=== PATIENT | female | born 1950 | race Caucasian/White ===

== ENCOUNTER 2016-12-21 08:41 | Emergency (ER) | payer MEDICARE, MEDICAID ==
[~2016-12-21] VITALS: Ht 147.3 cm; Wt 46.0 kg
[2016-12-21 08:44] VITALS: BP 188/81; PULSE 112; RESP 14; TEMP 98.1; O2SAT 98
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
--- NOTE | 2016-12-21 09:49 | RADRPT ---
EXAM DATE/TIME: 12/21/2016 09:30 [facility] COMPARISON: No previous studies available for comparison. INDICATIONS : Patient fell out of bed RADIATION DOSE: 34.48 CTDIvol (mGy) ; Patient motion MEDICAL HISTORY : Hypertension. Diabetes mellitus type 1. SURGICAL HISTORY : None. ENCOUNTER: Initial ACUITY: 1 day PAIN SCALE: 3/10 LOCATION: Left cheek TECHNIQUE: Multiple contiguous axial images were obtained of the head. Using automated exposure control and adj ustment of the mA and/or kV according to patient size, radiation dose was kept as low as reasonably a chievable to obtain optimal diagnostic quality images. DICOM format image data is available electro nically for review and comparison. FINDINGS: CEREBRUM: The ventricles are normal for age. Punctate areas of diminished attenuation in the anterior aspect o f the left external capsule and the anterior horn of the right internal capsule may represent old lac unar type infarcts. No evidence of midline shift, mass lesion, hemorrhage or acute infarction. No ex tra-axial fluid collections are seen. POSTERIOR FOSSA: The cerebellum and brainstem are intact. The 4th ventricle is midline. The cerebellopontine angle i s unremarkable. EXTRACRANIAL: The visualized portion of the orbits is intact. Minimal mucoperiosteal thickening in the sphenoid sin uses. SKULL: The calvaria is intact. No evidence of skull fracture. CONCLUSION: 1. 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 2. Nothing acute. No fracture. 3. Mild chronic sinusitis of the sphenoid sinuses. Eliezer Doran MD on December 21, 2016 at 9:40 Board Certified Radiologist. This report was verified electronically.
[2016-12-21] MEDS ORDERED: ACETAMINOPHEN 325 MG TAB PO ONE (10:00)
[2016-12-21 10:03] LABS: AUTOMATED NEUTROPHIL # 3.7 TH/MM3 (1.8-7.7); BASOPHIL # 0.1 TH/MM3 (0-0.2); BASOPHIL % 0.9 % (0.0-2.0); EOSINOPHIL # 0.1 TH/MM3 (0-0.4); EOSINOPHIL % 1.5 % (0.0-4.0); HEMATOCRIT 38.8 % (35.0-46.0); HEMO FLAGS DIFF FINAL; LYMPH % 37.8 % (9.0-44.0); LYMPHOCYTE # 2.6 TH/MM3 (1.0-4.8); MEAN CELL VOLUME 89.7 FL (80.0-100.0); MEAN CORPUSCULAR HEMOGLOBIN 31.4 PG (27.0-34.0); MONO % 5.1 % (0.0-8.0); NEUT % 54.7 % (16.0-70.0); PLATELET COUNT 397 TH/MM3 (150-450); RED BLOOD COUNT 4.33 MIL/MM3 (4.00-5.30); RED CELL DISTRIBUTION WIDTH 12.6 % (11.6-17.2); WHITE BLOOD COUNT 6.8 TH/MM3 (4.0-11.0)
--- NOTE | 2016-12-21 10:15 | RADRPT ---
EXAM DATE/TIME: 12/21/2016 09:30 [facility] COMPARISON: No previous studies available for comparison. INDICATIONS : Patient fell out of bed RADIATION DOSE: 48.08 CTDIvol (mGy) MEDICAL HISTORY : Diabetes mellitus type 1. Hypertension. SURGICAL HISTORY : None. ENCOUNTER: Initial ACUITY: 1 day PAIN SCORE: 3/10 LOCATION: Left cheek TECHNIQUE: Volumetric scanning of the facial bones was performed. Using automated exposure control and adjustme nt of the mA and/or kV according to patient size, radiation dose was kept as low as reasonably achiev able to obtain optimal diagnostic quality images. DICOM format image data is available electronic[employer] y for review and comparison. FINDINGS: ORBITS: The orbital and infraorbital osseous structures are intact. The retroconal structures have a normal configuration. No radiopaque foreign bodies are seen. NASAL BONE: The nasal bone and maxillary spine are intact ZYGOMATIC ARCHES: Symmetric without evidence of fracture. SINUSES: The maxillary, ethmoid and frontal sinuses are intact. No air-fluid levels seen. NASAL CAVITY: The nasal septum is intact and midline. The lacrimal ducts are intact. SOFT TISSUES: No radiopaque foreign bodies seen. No soft-tissue swelling is seen. INTRACRANIAL: No intracranial air seen. CRIBIFORM PLATE: Grossly intact. CONCLUSION: Negative for facial bone fracture. Willie Pedraza MD FACR on December 21, 2016 at 10:12 Board Certified Radiologist. This report was verified electronically.
[2016-12-21 11:23] LABS: BICARBONATE 28.1 MEQ/L (21.0-32.0); POTASSIUM 4.1 MEQ/L (3.5-5.1)
== END 2016-12-21 13:00 | disposition left against medical advice (07) ==
LOC: NEPE 08:41
DX: S00.83XA Contusion of other part of head, initial encounter (principal); I10 Essential (primary) hypertension; W06.XXXA Fall from bed, initial encounter; Y92.003 Bedroom of unspecified non-institutional (private) residence as the place of occurrence of the external cause
CPT/HCPCS: 70450; 70486; 80048; 85025

== ENCOUNTER 2017-01-04 17:50 | Inpatient (IN) | payer MEDICARE, MEDICAID ==
[~2017-01-04] VITALS: Ht 147.3 cm; Wt 46.6 kg
[2017-01-04 06:00] VITALS: BP 154/76; PULSE 66; RESP 17; TEMP 97.3; O2SAT 99
[2017-01-04 18:24] VITALS: BP 196/86; PULSE 84; RESP 16; TEMP 98.4; O2SAT 100
[2017-01-04 19:20] LABS: AUTOMATED NEUTROPHIL # 2.9 TH/MM3 (1.8-7.7); BASOPHIL # 0.1 TH/MM3 (0-0.2); BASOPHIL % 0.8 % (0.0-2.0); EOSINOPHIL # 0.1 TH/MM3 (0-0.4); EOSINOPHIL % 1.7 % (0.0-4.0); HEMATOCRIT 39.8 % (35.0-46.0); HEMO FLAGS DIFF FINAL; LYMPH % 46.3 % (9.0-44.0); MEAN CELL VOLUME 93.1 FL (80.0-100.0); MEAN CORPUSCULAR HEMOGLOBIN 31.3 PG (27.0-34.0); MEAN CORPUSCULAR HGB CONC 33.7 % (32.0-36.0); MONO % 6.2 % (0.0-8.0); PLATELET COUNT 229 TH/MM3 (150-450); RED BLOOD COUNT 4.28 MIL/MM3 (4.00-5.30); RED CELL DISTRIBUTION WIDTH 12.7 % (11.6-17.2); WHITE BLOOD COUNT 6.5 TH/MM3 (4.0-11.0)
[2017-01-04 19:47] LABS: ALT (GPT) 13 U/L (10-53); ANION GAP 6 MEQ/L (5-15); AST (GOT) 18 U/L (15-37); BICARBONATE 25.7 MEQ/L (21.0-32.0); BLOOD UREA NITROGEN 11 MG/DL (7-18); CHLORIDE 106 MEQ/L (98-107); GLOMERULAR FILTRATION RATE 68 ML/MIN (>89); POTASSIUM 3.8 MEQ/L (3.5-5.1); SODIUM (NA) 138 MEQ/L (136-145)
[2017-01-04 19:50] LABS: ALKALINE PHOSPHATASE 86 U/L (45-117); TOTAL BILIRUBIN ADULT 0.3 MG/DL (0.2-1.0)
[2017-01-04 21:53] VITALS: BP 120/56; PULSE 70; RESP 17
[2017-01-05 00:30] VITALS: BP 161/79; PULSE 75; RESP 18; TEMP 97.4; O2SAT 97
[2017-01-05] MEDS ORDERED: hydrOXYzine HCL 50 MG TAB PO PRN (00:30)
[2017-01-05] MEDS ORDERED: diphenhydrAMINE HCL 50 MG CAP - HS PRN PO (00:30)
[2017-01-05] MEDS ORDERED: LORazepam 2 MG/ML VIAL - age > 65 yrs IM PRN (00:30)
[2017-01-05] MEDS ORDERED: traZODone HCL 50 MG TAB PO PRN (00:30)
[2017-01-05] MEDS ORDERED: ALUMINUM/MAGNESIUM/SIMETH 30 ML CUP PO PRN (00:30)
[2017-01-05] MEDS ORDERED: MAGNESIUM HYDROXIDE SUSP 30 ML CUP PO PRN (00:30)
[2017-01-05] MEDS ORDERED: diphenhydrAMINE HCL 50 MG/ML VIAL - HS PRN IM (00:30)
[2017-01-05] MEDS ORDERED: diphenhydrAMINE HCL 50 MG/ML VIAL IM PRN (00:30)
[2017-01-05] MEDS ORDERED: LORazepam 0.5 MG TAB age > 65 yrs PO PRN (00:30)
[2017-01-05] MEDS ORDERED: clonazePAM 1 MG TAB PO ONE (01:00)
[2017-01-05] MEDS ORDERED: diphenhydrAMINE HCL 50 MG CAP PO PRN (01:00)
[2017-01-05 06:06] VITALS: BP 154/76; PULSE 66; RESP 17; TEMP 97.3; O2SAT 99
[2017-01-05] MEDS: clonazePAM 1 MG TAB PO SCH ×2 (09:00→21:15)
[2017-01-05] MEDS: NICOTINE 21 MG/24 HR PATCH T-DERMAL SCH (09:00)
[2017-01-05] MEDS: OLANZapine 5 MG TAB PO SCH ×2 (11:45→21:15)
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
[2017-01-05 16:00] VITALS: BP 158/71; PULSE 75; RESP 18; TEMP 98.6; O2SAT 98
--- NOTE | 2017-01-05 17:15 | PD.CONS ---
HPI Service [facility] Hospitalists Consult Requested By Psychiatry Reason for Consult Medical management. Primary Care Physician Unknown Diagnoses: History of Present Illness Ms. Mckenzie is a 66 year old female with a history of hypertension, diabetes mellitus who was admitted to psychiatry unit due to aggressive behavior. Hospitalist service was consulted for medical management. At the time of this interview, patient is resting in bed well. Denies any chest pain, SOB, fever, chills. She takes metformin for DM and a blood pressure medication she could not name. No changes in bowel or bladder movements. No abdominal pain, cough. Review of Systems Except as stated in HPI: all other systems reviewed are Neg Past Family Social History Allergies: Coded Allergies: penicillin G (Unverified Allergy, Unknown, 01/04/17) Past Medical History Hypertension Diabetes mellitus Bipolar disorder Past Surgical History No previous major surgery Reported Medications Metformin BP med - probably amlodipine Family History No family history of heart disease, cancer Social History Smokes vap, uses opiates but no IV Drugs. Does not drink alcohol. Physical Exam Vital Signs Vital Signs Date Time Temp Pulse Resp B/P (MAP) Pulse Ox O2 Delivery O2 Flow Rate FiO2 01/05/17 06:06 97.3 66 17 154/76 (102) 99 01/05/17 00:30 97.4 75 18 161/79 (106) 97 01/05/17 00:23 01/04/17 21:53 70 17 120/56 (77) Room Air 01/04/17 18:24 98.4 84 16 196/86 (122) 100 Physical Exam GENERAL: This is a well-nourished, well-developed patient, in no apparent distress. SKIN: No rashes, ecchymoses or lesions. Warm and dry. HEAD: Atraumatic. Normocephalic. No temporal or scalp tenderness. EYES: Pupils equal round and reactive. No injection or drainage. ENT: Nose without bleeding, purulent drainage or septal hematoma. Airway patent. NECK: Trachea midline. No lymphadenopathy. Supple, nontender, no meningeal signs. CARDIOVASCULAR: Regular rate and rhythm without murmurs, gallops, or rubs. No JVD. RESPIRATORY: moderate air entry. No appreciable wheezing. GASTROINTESTINAL: Abdomen soft, non-tender, nondistended. No guarding. MUSCULOSKELETAL: Extremities without clubbing, cyanosis, or edema. NEUROLOGICAL: Awake and alert. Cranial nerves II through XII intact. No focal neurological deficits. Normal speech. Laboratory Laboratory Tests Test 01/04/17 18:46 01/04/17 20:45 White Blood Count 6.5 Red Blood Count 4.28 Hemoglobin 13.4 Hematocrit 39.8 Mean Corpuscular Volume 93.1 Mean Corpuscular Hemoglobin 31.3 Mean Corpuscular Hemoglobin Concent 33.7 Red Cell Distribution Width 12.7 Platelet Count 229 Mean Platelet Volume 7.4 Neutrophils (%) (Auto) 45.0 Lymphocytes (%) (Auto) 46.3 Monocytes (%) (Auto) 6.2 Eosinophils (%) (Auto) 1.7 Basophils (%) (Auto) 0.8 Neutrophils # (Auto) 2.9 Lymphocytes # (Auto) 3.0 Monocytes # (Auto) 0.4 Eosinophils # (Auto) 0.1 Basophils # (Auto) 0.1 CBC Comment DIFF FINAL Differential Comment Blood Urea Nitrogen 11 Creatinine 0.84 Random Glucose 111 Total Protein 7.9 Albumin 3.8 Calcium Level 8.8 Alkaline Phosphatase 86 Aspartate Amino Transf (AST/SGOT) 18 Alanine Aminotransferase (ALT/SGPT) 13 Total Bilirubin 0.3 Sodium Level 138 Potassium Level 3.8 Chloride Level 106 Carbon Dioxide Level 25.7 Anion Gap 6 Estimat Glomerular Filtration Rate 68 Urine Opiates Screen NEG Urine Barbiturates Screen NEG Urine Amphetamines Screen POS Urine Benzodiazepines Screen POS Urine Cocaine Screen NEG Urine Cannabinoids Screen NEG Result Diagram: 01/04/17184501/04/171845 Assessment and Plan Problem List: (1) Diabetes mellitus ICD Code: E11.9 - Type 2 diabetes mellitus without complications (2) Hypertension ICD Code: I10 - Essential (primary) hypertension (3) Bipolar disorder, current episode manic severe with psychotic features ICD Code: F31.2 - Bipolar disorder, current episode manic severe with psychotic features Assessment and Plan Ms. Mckenzie is a pleasant 66 year old female with a history of DM, HTN who was admitted to the psychiatry unit due to aggressive behavior. Hospitalist service was consulted for medical management. Patient denies any acute concerns at the time of this consultation. - Bipolar disorder - Management per Psychiatry team. - Patient is currently on Clonazepam, Olanzapine. Also on Trazodone for insomnia. - Hypertension - Patient's BP has been in the 150s to 160s range - Will start patient on Amlodipine 5mg Qday. - Diabetes mellitus - Patient takes Metformin. We will start patient on Metformin 500mg BID. - Can be titrated up in the outpatient setting. Full code. Ambulation. Thank you for the consult. We will continue to follow this patient with you. Laura Dobbs DO Jan 05, 2017 17:15
[2017-01-05] MEDS: REMOVE OLD NICOTINE PATCH T-DERMAL SCH (21:00)
[2017-01-06 05:33] VITALS: BP 122/60; PULSE 69; RESP 17; TEMP 97.5; O2SAT 100
[2017-01-06] MEDS: metFORMIN HCL 500 MG TAB PO SCH ×3 (08:35→09:22)
[2017-01-06] MEDS: OLANZapine 5 MG TAB PO SCH ×4 (08:35→12:51)
[2017-01-06] MEDS: amLODIPine BESYLATE 5 MG TAB PO SCH ×4 (08:36→12:49)
[2017-01-06] MEDS: clonazePAM 1 MG TAB PO SCH ×4 (08:36→12:49)
[2017-01-06] MEDS: NICOTINE 21 MG/24 HR PATCH T-DERMAL SCH ×2 (08:37→09:23)
[2017-01-06] MEDS: REMOVE OLD NICOTINE PATCH T-DERMAL SCH (09:22)
--- NOTE | 2017-01-06 10:04 | PD.TTN ---
Patient Problems 1. Discharge planning 2. Medication compliance 3. Knowledge deficit 4. Lack of coping skills Progress Toward Goals Provider Present: Dr. Oren Elizondo Provider Input: Dr. Prado's treatment team met to discuss patient's treatment plan, discharge and medication. Patient is new presenting confused and disorganized, has history of noncompliance. Will begin treatment Nurse(s) Input: Patient's nurse Vashti reports presents paranoid, suspicious , refused her medication "stating not until she speaks to the doctor" Psychiatric Counselors Present: YVETTE Rush Psych Therapist Input: Patient seen today in her room. Patient continues to deny medication stating it is not real. Patient presents paranoid, confused, agitated, affect blunted. Patient made good eye contact. Patient is alert to person and place but has poor insight into her situation. Patient denies suicidal and homicidal ideation. Group Spec/RT/OT/GOMEZ Present: PATRICIA Grissom Group Spec/RT/OT/GOMEZ Input: Patient does not attend groups, will encourage Reyna Mane Jan 06, 2017 10:04
[2017-01-06 10:23] LABS: AUTOMATED NEUTROPHIL # 2.3 TH/MM3 (1.8-7.7); BASOPHIL % 0.4 % (0.0-2.0); EOSINOPHIL # 0.1 TH/MM3 (0-0.4); HEMO FLAGS DIFF FINAL; LYMPH % 50.1 % (9.0-44.0); LYMPHOCYTE # 2.7 TH/MM3 (1.0-4.8); MEAN CELL VOLUME 91.2 FL (80.0-100.0); MONO % 5.5 % (0.0-8.0); PLATELET COUNT 244 TH/MM3 (150-450); RED BLOOD COUNT 4.49 MIL/MM3 (4.00-5.30); RED CELL DISTRIBUTION WIDTH 12.6 % (11.6-17.2); WHITE BLOOD COUNT 5.4 TH/MM3 (4.0-11.0)
[2017-01-06 10:33] LABS: ANION GAP 6 MEQ/L (5-15); AST (GOT) 18 U/L (15-37); BLOOD UREA NITROGEN 8 MG/DL (7-18); CHLORIDE 106 MEQ/L (98-107); GLOMERULAR FILTRATION RATE 71 ML/MIN (>89); MAGNESIUM 1.7 MG/DL (1.5-2.5); POTASSIUM 3.8 MEQ/L (3.5-5.1); SODIUM (NA) 141 MEQ/L (136-145)
[2017-01-06 10:43] LABS: ALKALINE PHOSPHATASE 84 U/L (45-117); ALT (GPT) 11 U/L (10-53); HDL CHOLESTEROL 55.8 MG/DL (40.0-60.0); LDL CHOLESTEROL 77 MG/DL (0-99); TOTAL BILIRUBIN ADULT 0.3 MG/DL (0.2-1.0)
--- NOTE | 2017-01-06 13:12 | HHI.PYPN ---
Subjective Remarks Patient seen follow up, chart reviewed. have reported the patient had been refusing medications this morning stating "they're not real". Patient is found in day room, cooperative interview. Patient states she has been feeling "fine" no problem with sleep, eating and drinking okay has some difficulty admission yesterday but stated that she was able to void normal today. She denies feeling depressed denies feeling irritable despite noting be irritable affect today. Patient denies any side effects medications. When asked about medications this morning patient states that she did take it as why she thought they were not real. Listening to the patient that lately, with generic names which she may not recognize she reluctantly acknowledged. Patient likely also agreed to take medications that she will refuse earlier this morning. Patient reports having not spoken with her since her admission. Review of Systems Except as stated in HPI: all other systems reviewed are Neg Mental Status Examination Appearance: Disheveled Consciousness: Alert, Vigilant Orientation: Person, Place, Date/Time Motor Activity: Normal gait Speech: Other Language: Adequate Fund of Knowledge: Adequate Attention and Concentration: Adequate Memory: Unremarkable Mood: Irritable Affect: Irritable Thought Process & Associations: Other (concrete) Thought Content: Preoccupations (wanting to be discharged), Delusional ( Paranoid) Hallucination Type: Auditory (denies but as per collateral patient talking to self) Delusion Type: Paranoid Suicidal Ideation: Yes (denies today) Suicidal Plan: No Suicidal Intention: No Homicidal Ideation: Yes (denies today) Homicidal Plan: No Homicidal Intention: No Insight: Poor Judgment: Poor Results Labs Labs reviewed. Test 01/06/17 09:19 White Blood Count 5.4 TH/MM3 Red Blood Count 4.49 MIL/MM3 Hemoglobin 13.9 GM/DL Hematocrit 41.0 % Mean Corpuscular Volume 91.2 FL Mean Corpuscular Hemoglobin 31.0 PG Mean Corpuscular Hemoglobin Concent 34.0 % Red Cell Distribution Width 12.6 % Platelet Count 244 TH/MM3 Mean Platelet Volume 7.3 FL Neutrophils (%) (Auto) 42.0 % Lymphocytes (%) (Auto) 50.1 % Monocytes (%) (Auto) 5.5 % Eosinophils (%) (Auto) 2.0 % Basophils (%) (Auto) 0.4 % Neutrophils # (Auto) 2.3 TH/MM3 Lymphocytes # (Auto) 2.7 TH/MM3 Monocytes # (Auto) 0.3 TH/MM3 Eosinophils # (Auto) 0.1 TH/MM3 Basophils # (Auto) 0.0 TH/MM3 CBC Comment DIFF FINAL Differential Comment Blood Urea Nitrogen 8 MG/DL Creatinine 0.81 MG/DL Random Glucose 87 MG/DL Total Protein 7.6 GM/DL Albumin 3.7 GM/DL Calcium Level 9.0 MG/DL Magnesium Level 1.7 MG/DL Alkaline Phosphatase 84 U/L Aspartate Amino Transf (AST/SGOT) 18 U/L Alanine Aminotransferase (ALT/SGPT) 11 U/L Total Bilirubin 0.3 MG/DL Sodium Level 141 MEQ/L Potassium Level 3.8 MEQ/L Chloride Level 106 MEQ/L Carbon Dioxide Level 29.0 MEQ/L Anion Gap 6 MEQ/L Estimat Glomerular Filtration Rate 71 ML/MIN Triglycerides Level 203 MG/DL Cholesterol Level 173 MG/DL LDL Cholesterol 77 MG/DL HDL Cholesterol 55.8 MG/DL Cholesterol/HDL Ratio 3.10 RATIO Thyroid Stimulating Hormone 3rd Gen 1.310 uIU/ML Vitals/IOs Vital Signs Date Time Temp Pulse Resp B/P (MAP) Pulse Ox O2 Delivery O2 Flow Rate FiO2 01/06/17 05:33 97.5 69 17 122/60 (80) 100 01/04/17 21:53 Room Air Intake and Output 01/06/17 01/06/17 01/07/17 08:00 16:00 00:00 Intake Total 120 ml Balance 120 ml Assessment & Plan Problem List: (1) Bipolar disorder, current episode manic severe with psychotic features ICD Codes: F31.2 - Bipolar disorder, current episode manic severe with psychotic features Assessment & Plan Patient at this time continues to be noted to be very irritable, paranoid with her medications, superficially cooperative interview today. Patient noted to be paranoid with staff as well as with database report writer. We'll increase olanzapine to 5 mg by mouth a.m. and 10 mg by mouth at bedtime was stabilization and psychosis. Continue to monitor mood and behavior. Discharge planning in progress Justification for Cont. Inpt. At risk for further decompensation if at lower level of care Discharge Planning Patient to be discharged back to her residence once psychiatrically cleared Erasto Elizondo MD Jan 06, 2017 13:12
--- NOTE | 2017-01-06 14:05 | HHI.PR ---
Subjective Remarks Patient reports she is feeling okay. States she is trying to rest. Objective Vitals Vital Signs Date Time Temp Pulse Resp B/P (MAP) Pulse Ox O2 Delivery O2 Flow Rate FiO2 01/06/17 05:33 97.5 69 17 122/60 (80) 100 01/05/17 16:00 98.6 75 18 158/71 (100) 98 I/O 01/05/17 01/05/17 01/05/17 01/06/17 01/06/17 01/06/17 07:00 15:00 23:00 07:00 15:00 23:00 Intake Total 120 ml Balance 120 ml Intake Oral 120 ml Result Diagram: 01/06/1791801/06/17918 Objective Remarks GENERAL: This is a well-nourished, well-developed patient, in no apparent distress. CARDIOVASCULAR: Normal rate and regular rhythm without murmurs, gallops, or rubs. RESPIRATORY: Good respiratory efforts. Breath sounds equal and clear to auscultation bilaterally. GASTROINTESTINAL: Abdomen soft, non-tender, non-distended. Normal active bowel sounds MUSCULOSKELETAL: Extremities without cyanosis, or edema. NEURO: Alert & Oriented x4 to person, place, time, situation. Moves all ext x4 PSYCH: Appropriate mood and affect. A/P Problem List: (1) Diabetes mellitus ICD Code: E11.9 - Type 2 diabetes mellitus without complications (2) Hypertension ICD Code: I10 - Essential (primary) hypertension (3) Bipolar disorder, current episode manic severe with psychotic features ICD Code: F31.2 - Bipolar disorder, current episode manic severe with psychotic features Assessment and Plan 66 year old female with a history of DM, HTN who was admitted to the psychiatry unit due to aggressive behavior. Hospitalist service was consulted for medical management. - Bipolar disorder - Management per Psychiatry team. - Patient is currently on Clonazepam, Olanzapine. Also on Trazodone for insomnia. - Hypertension - Patient's BP has been in the 150s to 160s range -Patient was started on amlodipine 5 mg daily. She can be discharged on the same. Blood pressure now controlled. - Diabetes mellitus - Patient takes Metformin. Restart Metformin 500mg BID. - Can be titrated up in the outpatient setting. Patient is medically stable. We'll sign off. Please call or consult. Questions. Salma Pereira MD Jan 06, 2017 14:05
[2017-01-06 17:13] LABS: HEMOGLOBIN A1a 0.9 %; HEMOGLOBIN A1b 1.9 %; HEMOGLOBIN Ao 84.9 %; HEMOGLOBIN LA1C 2.2 %
[2017-01-06 18:00] VITALS: BP 147/68; PULSE 63; RESP 17; TEMP 97.5; O2SAT 96
[2017-01-06] MEDS: OLANZapine 10 MG TAB PO SCH (20:38)
[2017-01-07 06:11] VITALS: BP 151/72; PULSE 88; RESP 18; TEMP 97.9; O2SAT 96
[2017-01-07] MEDS: OLANZapine 5 MG TAB PO SCH (09:00)
[2017-01-07] MEDS: clonazePAM 1 MG TAB PO SCH ×2 (09:18→20:23)
[2017-01-07] MEDS: amLODIPine BESYLATE 5 MG TAB PO SCH (09:19)
[2017-01-07] MEDS: NICOTINE 21 MG/24 HR PATCH T-DERMAL SCH (09:20)
[2017-01-07] MEDS: metFORMIN HCL 500 MG TAB PO SCH ×2 (09:23→18:00)
--- NOTE | 2017-01-07 14:23 | HHI.PYPN ---
Subjective Remarks Patient seen for follow-up, chart reviewed. Discussed with nursing staff reported patient continues to be noted to be irritable. Patient found lying in hospital bed was able to engage in interview today. Patient states that she is feeling "fine", patient reports that temper in general has been good, tolerating medications okay denies any adverse drug reactions. Patient states that she is no longer having difficulty with urination. Patient states that she has been involved in groups and activities on the unit. Patient reports not having with her since admission and states that upon discharge plans are going back home. Patient at this time denies SI, HI, AVH. Review of Systems Except as stated in HPI: all other systems reviewed are Neg Mental Status Examination Appearance: Disheveled Consciousness: Alert, Vigilant Orientation: Person, Place, Date/Time Motor Activity: Normal gait Speech: Other Language: Adequate Fund of Knowledge: Adequate Attention and Concentration: Adequate Memory: Unremarkable Mood: Irritable (less so today) Affect: Irritable Thought Process & Associations: Other (concrete) Thought Content: Delusional (Paranoid) Hallucination Type: Auditory (denies today) Delusion Type: Paranoid Suicidal Ideation: Yes (denies today) Suicidal Plan: No Suicidal Intention: No Homicidal Ideation: Yes (denies today) Homicidal Plan: No Homicidal Intention: No Insight: Poor Judgment: Poor Results Vitals/IOs Vital Signs Date Time Temp Pulse Resp B/P (MAP) Pulse Ox O2 Delivery O2 Flow Rate FiO2 01/07/17 06:11 97.9 88 18 151/72 (98) 96 01/04/17 21:53 Room Air Assessment & Plan Problem List: (1) Bipolar disorder, current episode manic severe with psychotic features ICD Codes: F31.2 - Bipolar disorder, current episode manic severe with psychotic features Assessment & Plan Patient at this time continues to be noted to be irritable, did not illicit any expressed paranoid delusions but was endorsing yesterday that the medications were fake. Patient continues to be noted to be very guarded and hypervigilant with chief writer. Patient has been compliant with treatment today. Patient appears to be responding to treatment and will continue treatment as is for now. Continue to encourage personal hygiene as well as participation in groups and activities while on the unit. Continue recommendations as per primary medical team. Discharge planning in progress Justification for Cont. Inpt. At risk for further decompensation if at lower level of care Discharge Planning Patient to return back to her residence was psychiatrically stable Erasto Elizondo MD Jan 07, 2017 14:23
--- NOTE | 2017-01-07 15:46 | EKG ---
Date Performed: 01/06/2017 Time Performed: 12:59:58 PTAGE: 66 years EKG: Sinus rhythm NORMAL ECG NO PREVIOUS TRACING DOCTOR: Carlos Alberto Crystal Interpretating Date/Time 01/07/2017 15:44:51
[2017-01-07 17:13] VITALS: BP 119/56; PULSE 78; RESP 16; TEMP 97.9; O2SAT 98
[2017-01-07] MEDS: OLANZapine 10 MG TAB PO SCH (20:23)
[2017-01-07] MEDS: REMOVE OLD NICOTINE PATCH T-DERMAL SCH (21:00)
[2017-01-07] MEDS: ACETAMINOPHEN 325 MG TAB PO PRN (21:22)
[2017-01-08 05:56] VITALS: BP 114/59; PULSE 71; RESP 16; TEMP 97.6; O2SAT 98
[2017-01-08] MEDS: NICOTINE 21 MG/24 HR PATCH T-DERMAL SCH (09:00)
[2017-01-08] MEDS: OLANZapine 5 MG TAB PO SCH (09:11)
[2017-01-08] MEDS: metFORMIN HCL 500 MG TAB PO SCH ×2 (09:12→18:22)
[2017-01-08] MEDS: amLODIPine BESYLATE 5 MG TAB PO SCH (09:12)
[2017-01-08] MEDS: clonazePAM 1 MG TAB PO SCH ×2 (09:12→21:11)
--- NOTE | 2017-01-08 14:59 | HHI.PYPN ---
Subjective Remarks Patient seen for follow-up, chart reviewed. Patient found sitting in hospital bed, cooperative but noted to be guarded. Patient states that she is feeling "fine" reports tolerating medications denies any perceptual disturbances or delusions at this time. Patient continues noted to be very guarded and hypervigilant with interviewer. Patient reports having spoken with earlier today and states that it did not go so well as he has spoken about recent events that brought to the hospital. Patient reports tolerating treatment well denies any adverse drug reactions at this time. Patient still noted to have some irritability and internally preoccupied at times Review of Systems Except as stated in HPI: all other systems reviewed are Neg Mental Status Examination Appearance: Disheveled Consciousness: Alert, Vigilant Orientation: Person, Place, Date/Time Motor Activity: Normal gait Speech: Other Language: Adequate Fund of Knowledge: Adequate Attention and Concentration: Adequate Memory: Unremarkable Mood: Irritable (less so today) Affect: Irritable Thought Process & Associations: Other (concrete) Thought Content: Delusional (Paranoid) Hallucination Type: Auditory (denies today) Delusion Type: Paranoid Suicidal Ideation: Yes (denies today) Suicidal Plan: No Suicidal Intention: No Homicidal Ideation: Yes (denies today) Homicidal Plan: No Homicidal Intention: No Insight: Poor Judgment: Poor Results Vitals/IOs Vital Signs Date Time Temp Pulse Resp B/P (MAP) Pulse Ox O2 Delivery O2 Flow Rate FiO2 01/08/17 05:56 97.6 71 16 114/59 (77) 98 01/04/17 21:53 Room Air Assessment & Plan Problem List: (1) Bipolar disorder, current episode manic severe with psychotic features ICD Codes: F31.2 - Bipolar disorder, current episode manic severe with psychotic features Assessment & Plan Patient at this time continues to be noted to be very paranoid, hypervigilant and with some irritability still. Patient reports tolerating medication well. We'll increase olanzapine 7.5 mg by mouth daily and 10 mg by mouth at bedtime for mood stabilization. Continue with the medications and recommendations as per primary medical team. Collateral pending from to determine if patient is closer to baseline. Discharge planning in progress Justification for Cont. Inpt. At risk for further decompensation if at lower level of care Discharge Planning Patient to return back home to once psychiatrically stable. Erasto Elizondo MD Jan 08, 2017 14:59
[2017-01-08 17:18] VITALS: BP 114/57; PULSE 78; RESP 17; TEMP 97.3; O2SAT 92
[2017-01-08] MEDS: REMOVE OLD NICOTINE PATCH T-DERMAL SCH (21:00)
[2017-01-08] MEDS: OLANZapine 10 MG TAB PO SCH (21:11)
[2017-01-09 06:13] VITALS: BP 105/52; PULSE 70; RESP 16; TEMP 97.1; O2SAT 98
[2017-01-09] MEDS: OLANZapine 5 MG TAB PO SCH (08:51)
[2017-01-09] MEDS: clonazePAM 1 MG TAB PO SCH ×2 (08:51→20:33)
[2017-01-09] MEDS: metFORMIN HCL 500 MG TAB PO SCH ×2 (08:51→17:40)
[2017-01-09] MEDS: NICOTINE 21 MG/24 HR PATCH T-DERMAL SCH (08:54)
[2017-01-09] MEDS: amLODIPine BESYLATE 5 MG TAB PO SCH (08:56)
[2017-01-09] MEDS: ACETAMINOPHEN 325 MG TAB PO PRN (10:27)
--- NOTE | 2017-01-09 15:53 | HHI.PYPN ---
Subjective Remarks Pt seen and discussed with staff. She has been hostile and irritable today. She has been observed responding to internal stimuli and remains paranoid and guarded. She is compliant with medications. Mental Status Examination Appearance: Disheveled Consciousness: Alert, Vigilant Orientation: Person, Place, Date/Time Motor Activity: Normal gait Speech: Other Language: Adequate Fund of Knowledge: Adequate Attention and Concentration: Adequate Memory: Unremarkable Mood: Irritable (less so today) Affect: Irritable Thought Process & Associations: Other (concrete) Thought Content: Delusional Hallucination Type: Auditory (denies) Delusion Type: Paranoid Suicidal Ideation: No Suicidal Plan: No Suicidal Intention: No Homicidal Ideation: No (denies today) Homicidal Plan: No Homicidal Intention: No Insight: Poor Judgment: Poor Results Vitals/IOs Vital Signs Date Time Temp Pulse Resp B/P (MAP) Pulse Ox O2 Delivery O2 Flow Rate FiO2 01/09/17 06:13 97.1 70 16 105/52 (69) 98 Assessment & Plan Problem List: (1) Bipolar disorder, current episode manic severe with psychotic features ICD Codes: F31.2 - Bipolar disorder, current episode manic severe with psychotic features Assessment & Plan continue current tx plan Estimated LOS: days Justification for Cont. Inpt. impairments in reality testing Lynn Frey MD Jan 09, 2017 15:53
[2017-01-09 18:00] VITALS: PULSE 61; RESP 16; TEMP 98.2; O2SAT 97
[2017-01-09] MEDS: OLANZapine 10 MG TAB PO SCH (20:33)
[2017-01-09] MEDS: REMOVE OLD NICOTINE PATCH T-DERMAL SCH (20:34)
[2017-01-10 08:06] VITALS: BP 180/77; PULSE 82; RESP 19; TEMP 98; O2SAT 97
[2017-01-10] MEDS: clonazePAM 1 MG TAB PO SCH ×2 (09:02→20:57)
[2017-01-10] MEDS: amLODIPine BESYLATE 5 MG TAB PO SCH (09:02)
[2017-01-10] MEDS: metFORMIN HCL 500 MG TAB PO SCH ×2 (09:02→18:16)
[2017-01-10] MEDS: OLANZapine 5 MG TAB PO SCH (09:02)
[2017-01-10] MEDS: NICOTINE 21 MG/24 HR PATCH T-DERMAL SCH (09:03)
--- NOTE | 2017-01-10 14:38 | HHI.PYPN ---
Subjective Remarks Pt seen and discussed with staff. She became agitated last night and was taken to 2700 unit for safety. She is back on the unit and has been calm this morning. She remains paranoid but is improving. No SI/H Mental Status Examination Appearance: Disheveled Consciousness: Alert, Vigilant Orientation: Person, Place, Date/Time Motor Activity: Normal gait Speech: Other Language: Adequate Fund of Knowledge: Adequate Attention and Concentration: Adequate Memory: Unremarkable Mood: Irritable Affect: Blunt Thought Process & Associations: Other (concrete) Thought Content: Delusional Hallucination Type: Auditory (denies) Delusion Type: Paranoid (decreased) Suicidal Ideation: No Suicidal Plan: No Suicidal Intention: No Homicidal Ideation: No (denies today) Homicidal Plan: No Homicidal Intention: No Insight: Poor Judgment: Poor Results Vitals/IOs Vital Signs Date Time Temp Pulse Resp B/P (MAP) Pulse Ox O2 Delivery O2 Flow Rate FiO2 01/10/17 08:06 98.0 82 19 180/77 (111) 97 Assessment & Plan Problem List: (1) Bipolar disorder, current episode manic severe with psychotic features ICD Codes: F31.2 - Bipolar disorder, current episode manic severe with psychotic features Assessment & Plan Continue current tx plan Estimated LOS: days Justification for Cont. Inpt. impairments in reality testing Lynn Frey MD Jan 10, 2017 14:38
[2017-01-10 18:00] VITALS: BP 169/77; PULSE 97; RESP 18; TEMP 97.9; O2SAT 100
[2017-01-10] MEDS: OLANZapine 10 MG TAB PO SCH (20:57)
[2017-01-10] MEDS: REMOVE OLD NICOTINE PATCH T-DERMAL SCH (21:00)
[2017-01-11] MEDS: ACETAMINOPHEN 325 MG TAB PO PRN ×2 (02:11→15:54)
[2017-01-11 06:22] VITALS: BP 107/61; PULSE 65; RESP 16; TEMP 98.7; O2SAT 95
[2017-01-11] MEDS: amLODIPine BESYLATE 5 MG TAB PO SCH (09:22)
[2017-01-11] MEDS: metFORMIN HCL 500 MG TAB PO SCH ×2 (09:22→17:53)
[2017-01-11] MEDS: OLANZapine 5 MG TAB PO SCH ×2 (09:22→09:32)
[2017-01-11] MEDS: clonazePAM 1 MG TAB PO SCH ×2 (09:22→21:11)
[2017-01-11] MEDS: NICOTINE 21 MG/24 HR PATCH T-DERMAL SCH (09:23)
--- NOTE | 2017-01-11 10:52 | PD.TTN ---
Patient Problems 1. Discharge planning 2. Medication compliance 3. Knowledge deficit 4. Lack of coping skills Progress Toward Goals Provider Present: Dr. Oren Elizondo Provider Input: Dr. Prado's treatment team met to discuss patient's treatment plan, discharge and medication. Patient is new presenting confused and disorganized, has history of noncompliance. Will begin treatment 01/11/17 Patient possible discharge today if patient had a good meeting with . Continue treatment. Nurse(s) Input: Patient's nurse Vashti reports presents paranoid, suspicious , refused her medication "stating not until she speaks to the doctor" 01/11/17 Patient's nurse Gonzalo reports patient is approachable and medication compliant. Patient denies suicidal and homicidal ideation and any auditory or visual hallucinations. Patient reports no psychiatric or medical compliants at present and has shown no behavioral problems this morning. Psychiatric Counselors Present: YVETTE Rush Psych Therapist Input: Patient seen today in her room. Patient continues to deny medication stating it is not real. Patient presents paranoid, confused, agitated, affect blunted. Patient made good eye contact. Patient is alert to person and place but has poor insight into her situation. Patient denies suicidal and homicidal ideation. 01/11/17 Patient presents cooperative but guarded. Patient reports no concerns or issues this moring Patient stated no sucidial or homicidal ideation. Patient made good eye contact. Patient reports eating and sleeping well. Patient's speech is clear and organized Patient did not present with any delusional content. Group Spec/RT/OT/GOMEZ Present: PATRICIA Grissom Group Spec/RT/OT/GOMEZ Input: Patient does not attend groups, will encourage 01/11/17 Patient attends selective groups. Patient acts appropriately during groups Reyna Mane Jan 11, 2017 10:52
--- NOTE | 2017-01-11 17:32 | HHI.PYPN ---
Subjective Remarks Patient seen for follow-up, chart reviewed. The session with nursing staff reported that patient had an episode of agitation over the weekend which she had argued with roommate and was transferred over to 2700 unit for the night but then was brought back to 2600 unit thereafter. Discussion with patient's as per collateral information obtained by therapist stated that felt patient was not back at baseline when he visited over the weekend. Patient was found in casual clothing sitting in hospital bed noted to be very guarded and irritable. Patient states that her had come to visit over the weekend and states that it went well. When asked about the incident over the weekend patient states that it was reported that he got upset and patient denied and minimized involvement in this argument with her roommate that cause her to be transferred to a different unit. When patient was advised that she would not be be discharged today due to continued modifications of her treatment patient became upset and irritable but was not verbally aggressive. Review of Systems Except as stated in HPI: all other systems reviewed are Neg Mental Status Examination Appearance: Appropriate Consciousness: Alert, Vigilant Orientation: Person, Place, Date/Time Motor Activity: Normal gait Speech: Other Language: Adequate Fund of Knowledge: Adequate Attention and Concentration: Adequate Memory: Unremarkable Mood: Irritable Affect: Blunt Thought Process & Associations: Goal directed, Linear Thought Content: Delusional Hallucination Type: Auditory (denies) Delusion Type: Paranoid (decreased) Suicidal Ideation: No Suicidal Plan: No Suicidal Intention: No Homicidal Ideation: No Homicidal Plan: No Homicidal Intention: No Insight: Poor Judgment: Poor Results Vitals/IOs Vital Signs Date Time Temp Pulse Resp B/P (MAP) Pulse Ox O2 Delivery O2 Flow Rate FiO2 01/11/17 06:22 98.7 65 16 107/61 (91) 95 Assessment & Plan Problem List: (1) Bipolar disorder, current episode manic severe with psychotic features ICD Codes: F31.2 - Bipolar disorder, current episode manic severe with psychotic features Assessment & Plan She at this time continues to have lability which she was irritable and had episode of agitation over the weekend but since has been in good behavioral control. We'll increase olanzapine to 10 mg by mouth a.m. and at bedtime for mood stabilization. Collateral pending from . The discharge planning in progress Justification for Cont. Inpt. At risk for further decompensation if at lower level of care Discharge Planning Patient to be discharged back to her 's residence once psychiatrically stable Erasto Elizondo MD Jan 11, 2017 17:32
[2017-01-11 18:00] VITALS: BP 114/69; PULSE 77; RESP 16; TEMP 97.3; O2SAT 98
[2017-01-11] MEDS: REMOVE OLD NICOTINE PATCH T-DERMAL SCH (21:00)
[2017-01-11] MEDS: OLANZapine 10 MG TAB PO SCH (21:12)
[2017-01-12 06:01] VITALS: BP 111/63; PULSE 70; RESP 17; TEMP 97.9; O2SAT 98
[2017-01-12] MEDS: amLODIPine BESYLATE 5 MG TAB PO SCH (08:49)
[2017-01-12] MEDS: clonazePAM 1 MG TAB PO SCH (08:49)
[2017-01-12] MEDS: metFORMIN HCL 500 MG TAB PO SCH (08:49)
[2017-01-12] MEDS: NICOTINE 21 MG/24 HR PATCH T-DERMAL SCH (08:55)
[2017-01-12] MEDS ORDERED: OLANZapine 10 MG TAB PO SCH (09:00)
[2017-01-12] MEDS ORDERED: METF500 PO (12:10)
[2017-01-12] MEDS ORDERED: OLAN10TA PO (12:10)
[2017-01-12] MEDS ORDERED: CLON1 PO (12:10)
[2017-01-12] MEDS ORDERED: AMLO5 PO (12:10)
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
[2017-01-12] MEDS: ACETAMINOPHEN 325 MG TAB PO PRN (12:54)
== END 2017-01-12 14:45 | disposition home or self-care (01) | DRG 885 ==
LOC: NEDAMB 17:50 → NEDA 23:46 → H260 01-05 00:25
PROVIDERS: ADMIT Student in an Organized Health Care Education/Training Program; ATTEND Student in an Organized Health Care Education/Training Program
DX: F31.2 Bipolar disorder, current episode manic severe with psychotic features (principal); Z91.19 Patient's noncompliance with other medical treatment and regimen; E11.9 Type 2 diabetes mellitus without complications; Z79.84 Long term (current) use of oral hypoglycemic drugs; I10 Essential (primary) hypertension; E78.5 Hyperlipidemia, unspecified; G47.00 Insomnia, unspecified; F12.90 Cannabis use, unspecified, uncomplicated; Z81.8 Family history of other mental and behavioral disorders; F17.290 Nicotine dependence, other tobacco product, uncomplicated
CPT/HCPCS: 80053; 80061; 80307; 83036; 83735; 84443; 85025; 93005

== ENCOUNTER 2017-02-24 14:18 | Inpatient (IN) | payer MEDICARE, MEDICAID ==
[~2017-02-24] VITALS: Ht 144.8 cm; Wt 43.7 kg
[~2017-02-24 14:18] MED LIST: AMLO5 PO; CLON1 PO; METF500 PO; OLAN10TA PO
[2017-02-24 14:50] VITALS: BP 96/55; PULSE 89; RESP 16; TEMP 98.7; O2SAT 94
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
[2017-02-24] MEDS ORDERED: NICOTINE 21 MG/24 HR PATCH T-DERMAL ONE (16:15)
[2017-02-24 16:34] LABS: AUTOMATED NEUTROPHIL # 3.1 TH/MM3 (1.8-7.7); BASOPHIL % 0.5 % (0.0-2.0); EOSINOPHIL # 0.2 TH/MM3 (0-0.4); EOSINOPHIL % 2.9 % (0.0-4.0); HEMATOCRIT 30.9 % (35.0-46.0); HEMOGLOBIN 10.7 GM/DL (11.6-15.3); LYMPH % 45.4 % (9.0-44.0); LYMPHOCYTE # 3.1 TH/MM3 (1.0-4.8); MEAN CELL VOLUME 92.1 FL (80.0-100.0); MEAN CORPUSCULAR HGB CONC 34.8 % (32.0-36.0); MONO % 5.7 % (0.0-8.0); MONOCYTE # 0.4 TH/MM3 (0-0.9); NEUT % 45.5 % (16.0-70.0); PLATELET COUNT 276 TH/MM3 (150-450); RED BLOOD COUNT 3.35 MIL/MM3 (4.00-5.30); RED CELL DISTRIBUTION WIDTH 12.7 % (11.6-17.2); WHITE BLOOD COUNT 6.7 TH/MM3 (4.0-11.0)
[2017-02-24 16:49] LABS: ALBUMIN 3.1 GM/DL (3.4-5.0); AST (GOT) 21 U/L (15-37); BLOOD UREA NITROGEN 11 MG/DL (7-18); CALCIUM 8.5 MG/DL (8.5-10.1); CHLORIDE 104 MEQ/L (98-107); CREATININE 0.92 MG/DL (0.50-1.00); GLOMERULAR FILTRATION RATE 61 ML/MIN (>89); GLUCOSE,RANDOM 87 MG/DL (74-106); SODIUM (NA) 141 MEQ/L (136-145)
[2017-02-24 16:50] LABS: ALT (GPT) 18 U/L (10-53)
[2017-02-24 16:52] LABS: ALKALINE PHOSPHATASE 104 U/L (45-117); TOTAL BILIRUBIN ADULT 0.2 MG/DL (0.2-1.0); TOTAL PROTEIN 6.8 GM/DL (6.4-8.2)
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
[2017-02-24] MEDS ORDERED: ALUMINUM/MAGNESIUM/SIMETH 30 ML CUP PO PRN (17:45)
[2017-02-24] MEDS ORDERED: LORazepam 0.5 MG TAB age > 65 yrs PO PRN (17:45)
[2017-02-24] MEDS ORDERED: MAGNESIUM HYDROXIDE SUSP 30 ML CUP PO PRN (17:45)
[2017-02-24] MEDS ORDERED: LORazepam 2 MG/ML VIAL - age > 65 yrs IM PRN (17:45)
[2017-02-24 18:31] VITALS: BP 123/59; PULSE 77; RESP 18; TEMP 97; O2SAT 94
[2017-02-24] MEDS: amLODIPine BESYLATE 5 MG TAB PO SCH (20:04)
[2017-02-24] MEDS: metFORMIN HCL 500 MG TAB PO SCH (20:05)
[2017-02-24] MEDS: REMOVE OLD NICOTINE PATCH T-DERMAL SCH (20:58)
[2017-02-25] MEDS: ACETAMINOPHEN 325 MG TAB PO PRN ×3 (04:42→19:26)
[2017-02-25 05:39] VITALS: BP 161/71; PULSE 95; RESP 18; TEMP 97.9; O2SAT 95
[2017-02-25] MEDS: metFORMIN HCL 500 MG TAB PO SCH ×2 (08:46→17:12)
[2017-02-25] MEDS: amLODIPine BESYLATE 5 MG TAB PO SCH (08:46)
[2017-02-25] MEDS ORDERED: NICOTINE 21 MG/24 HR PATCH T-DERMAL SCH (09:00)
[2017-02-25 09:29] LABS: BICARBONATE 28.7 MEQ/L (21.0-32.0); BLOOD UREA NITROGEN 12 MG/DL (7-18); CALCIUM 8.5 MG/DL (8.5-10.1); CHLORIDE 103 MEQ/L (98-107); CREATININE 0.82 MG/DL (0.50-1.00); GLOMERULAR FILTRATION RATE 70 ML/MIN (>89); GLUCOSE,RANDOM 131 MG/DL (74-106); SODIUM (NA) 140 MEQ/L (136-145)
[2017-02-25 09:30] LABS: CHOLESTEROL 139 MG/DL (120-200); TRIGLYCERIDES 106 MG/DL (42-150)
[2017-02-25 09:32] LABS: CHOLESTEROL/ HDL RATIO 2.42 RATIO; HDL CHOLESTEROL 57.4 MG/DL (40.0-60.0); LDL CHOLESTEROL 60 MG/DL (0-99)
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
[2017-02-25] MEDS ORDERED: POTASSIUM CHLORIDE 25 MEQ EFFERVESCENT TAB PO ONE (11:30)
[2017-02-25] MEDS ORDERED: HALOPERIDOL 2 MG TAB PO PRN (11:45)
[2017-02-25] MEDS ORDERED: HALOPERIDOL LACTATE 5 MG/ML AMP IM PRN (11:45)
[2017-02-25] MEDS ORDERED: diphenhydrAMINE HCL 50 MG/ML VIAL IM PRN (11:45)
--- NOTE | 2017-02-25 15:04 | EKG ---
Date Performed: 02/25/2017 Time Performed: 13:18:54 PTAGE: 67 years EKG: Sinus rhythm NORMAL ECG No significant change from prior electrocardiogram. PREVIOUS TRACING : 01/06/2017 12.59 DOCTOR: Tristen Leach Interpretating Date/Time 02/25/2017 15:03:09
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
[2017-02-25 16:12] LABS: HEMOGLOBIN A1C 6.1 % (4.3-6.0)
[2017-02-25] MEDS ORDERED: FLUMAZENIL 0.5 MG/5 ML VIAL IV PUSH PRN (16:15)
[2017-02-25] MEDS ORDERED: LORazepam 2 MG TAB PO PRN (16:15)
[2017-02-25] MEDS ORDERED: LORazepam 2 MG/ML VIAL IV PUSH PRN ×4 (16:15)
[2017-02-25] MEDS ORDERED: PILL SPLITTER OTHER PRN (16:30)
[2017-02-25 17:52] VITALS: BP 179/73; PULSE 87; RESP 18; TEMP 97.8; O2SAT 94
[2017-02-25] MEDS: QUEtiapine FUMARATE 25 MG TAB PO SCH (20:55)
[2017-02-25] MEDS: REMOVE OLD NICOTINE PATCH T-DERMAL SCH (20:56)
[2017-02-25] MEDS: diphenhydrAMINE HCL 25 MG CAP PO PRN (20:57)
[2017-02-26 05:51] VITALS: BP 198/88; PULSE 89; RESP 18; TEMP 98.1; O2SAT 99
[2017-02-26] MEDS: amLODIPine BESYLATE 5 MG TAB PO SCH (07:51)
[2017-02-26] MEDS: SERTRALINE HCL 50 MG TAB PO SCH (07:52)
[2017-02-26] MEDS: REMOVE OLD NICOTINE PATCH T-DERMAL SCH (07:52)
[2017-02-26] MEDS: QUEtiapine FUMARATE 25 MG TAB PO SCH ×2 (07:52→20:20)
[2017-02-26] MEDS: metFORMIN HCL 500 MG TAB PO SCH ×2 (07:52→17:24)
[2017-02-26] MEDS ORDERED: PNEUMOCOCCAL POLYVALENT INJ 25 MCG/0.5 ML SYR IM ONE (09:00)
[2017-02-26 09:19] VITALS: BP 140/68; PULSE 92; O2SAT 100
[2017-02-26] MEDS ORDERED: POTASSIUM CHLORIDE 20 MEQ CONTROLLED RELEASE TAB PO ONE (10:00)
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
[2017-02-26 11:43] LABS: BICARBONATE 30.2 MEQ/L (21.0-32.0); CREATININE 0.69 MG/DL (0.50-1.00); MAGNESIUM 1.6 MG/DL (1.5-2.5)
--- NOTE | 2017-02-26 11:44 | HHI.PYPN ---
Subjective Chief Complaint: aggressive behavior Remarks Patient seen and examined with nurse and nursing students. Chart reviewed. Case discussed with nursing staff as well as in treatment team with counselor, recreation therapist and occupational therapist. On my examination today, the patient remains irritable and discharge focused. Affect somewhat labile. She denies AVH. She denies SI or HI but seems unreliable to contract for safety. Somewhat disheveled, and I notice that she has toothpaste smeared on her face. She tells me "I have no illness" in my attempts to discuss her psychiatric condition with her. Insight and judgment remain quite poor. Denies side effects from medications besides some mild sleepiness. No physical complaints. Review of Systems ROS Limitations: Psychotic, Poor Historian Except as stated in HPI: all other systems reviewed are Neg Mental Status Examination Appearance: Disheveled Consciousness: Alert, Vigilant Orientation: Person, Place (at least) Motor Activity: Other (no hand tremor, no cogwheeling, no hypomimia, no dystonia, no dyskinesia) Speech: Other (somewhat terse but otherwise fairly unremarkable) Language: Adequate Fund of Knowledge: Adequate Attention and Concentration: Easily Distracted Memory: Impaired Mood: Irritable, Other (Dysphoric) Affect: Irritable, Labile Thought Process & Associations: Other (perseverative on discharge) Thought Content: Delusional Hallucination Type: None Delusion Type: Paranoid Suicidal Ideation: No (unreliable to contract for safety) Homicidal Ideation: No (unreliable to contract for safety) Insight: Poor Judgment: Poor Results Labs Labs reviewed. BMP, RPR, HIV and vitamin B12 are in process. Vitals/IOs Vital Signs Date Time Temp Pulse Resp B/P (MAP) Pulse Ox O2 Delivery O2 Flow Rate FiO2 02/26/17 09:19 92 140/68 (92) 100 02/26/17 05:51 98.1 18 02/24/17 14:50 Room Air Assessment & Plan Problem List: (1) Bipolar disorder, current episode mixed, severe, with psychotic features ICD Codes: F31.64 - Bipolar disorder, current episode mixed, severe, with psychotic features (2) Major frontotemporal neurocognitive disorder, possible ICD Codes: G31.09 - Other frontotemporal dementia; F02.80 - Dementia in other diseases classified elsewhere without behavioral disturbance Assessment & Plan Titrate Seroquel over the weekend to target mixed state. Interval target dose of Seroquel is 100 mg twice daily. Continue Zoloft as ordered for impulsivity associated with possible frontotemporal dementia. Continue to monitor on an inpatient unit. Hospitalist and neuropsychology input noted and appreciated. Continue other medications and care as ordered. Justification for Cont. Inpt. Medication changes. Concern for impairment in safety. Risk for decompensation in less restrictive environment. Discharge Planning Pending psychiatric stabilization. Request HC Surrog/Guard Advoc?: Yes Homero Mo MD Feb 26, 2017 11:44
--- NOTE | 2017-02-26 14:14 | PD.TTN ---
Patient Problems 1. Discharge planning 2. Medication compliance 3. Knowledge deficit 4. Lack of coping skills Progress Toward Goals Provider Present: Dr. Chi Mo Provider Input: Pt has been started on Zoloft as well as Seroquel. Nurse(s) Present: Elodia Gonzalez RN Nurse(s) Input: Pt has been demanding, easily agitated but not violent, medication compliant and appropriate. Psychiatric Counselors Present: RENU Hollingsworth Psych Therapist Input: Pt appears easily agitated, fixated on her , withdrawn, demanding and appropriate. She presents with limited coping and emotional regulation skills. Pt presents as medication compliant though she has limited insight into condition and need for care. Group Spec/RT/OT/GOMEZ Present: DAJA Kruger Group Spec/RT/OT/GOMEZ Input: Pt is a new admission and will be evaluated. Discharge Plan Pt was home with her where she will likely return after discharge. She will be linked to outpatient psychiatric services. Documentation Scribe: RENU Hollingsworth Jonathan LMHC Feb 26, 2017 14:14
[2017-02-26] MEDS ORDERED: amLODIPine BESYLATE 5 MG TAB PO ONE (14:30)
[2017-02-26] MEDS: ACETAMINOPHEN 325 MG TAB PO PRN (17:25)
[2017-02-26 18:00] VITALS: BP 158/65; PULSE 89; RESP 17; TEMP 97.9; O2SAT 100
[2017-02-26] MEDS: diphenhydrAMINE HCL 25 MG CAP PO PRN (20:21)
[2017-02-27] MEDS: LORazepam 1 MG TAB PO PRN ×2 (00:05→20:22)
[2017-02-27] MEDS: cloNIDine HCL 0.1 MG TAB PO PRN ×2 (04:23→11:29)
[2017-02-27] MEDS: ACETAMINOPHEN 325 MG TAB PO PRN ×3 (04:23→19:08)
[2017-02-27 05:58] VITALS: BP 163/75; PULSE 100; RESP 18; TEMP 97.3; O2SAT 100
[2017-02-27] MEDS: SERTRALINE HCL 50 MG TAB PO SCH (08:23)
[2017-02-27] MEDS: QUEtiapine FUMARATE 25 MG TAB PO SCH ×2 (08:23→20:23)
[2017-02-27] MEDS: metFORMIN HCL 500 MG TAB PO SCH ×2 (08:24→17:12)
[2017-02-27] MEDS: REMOVE OLD NICOTINE PATCH T-DERMAL SCH (08:24)
[2017-02-27] MEDS: NICOTINE 21 MG/24 HR PATCH T-DERMAL PRN (08:24)
[2017-02-27 10:35] LABS: BICARBONATE 26.4 MEQ/L (21.0-32.0); CALCIUM 9.7 MG/DL (8.5-10.1); CREATININE 0.74 MG/DL (0.50-1.00); MAGNESIUM 1.7 MG/DL (1.5-2.5)
[2017-02-27 11:28] VITALS: BP 195/99; PULSE 99
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
[2017-02-27 12:38] VITALS: BP 145/77; PULSE 91
[2017-02-27] MEDS: LISINOPRIL 10 MG TAB PO SCH (12:42)
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
[2017-02-27 18:24] VITALS: BP 140/81; PULSE 92; RESP 18; TEMP 97.6; O2SAT 97
[2017-02-27] MEDS: diphenhydrAMINE HCL 25 MG CAP PO PRN (20:22)
[2017-02-28] MEDS: ACETAMINOPHEN 325 MG TAB PO PRN ×3 (00:02→23:32)
[2017-02-28 05:53] VITALS: BP 156/76; PULSE 100; RESP 18; TEMP 97.1; O2SAT 97
[2017-02-28] MEDS: metFORMIN HCL 500 MG TAB PO SCH ×2 (08:29→17:52)
[2017-02-28] MEDS: SERTRALINE HCL 50 MG TAB PO SCH ×2 (08:29→08:30)
[2017-02-28] MEDS: LISINOPRIL 10 MG TAB PO SCH (08:29)
[2017-02-28] MEDS: QUEtiapine FUMARATE 25 MG TAB PO SCH ×2 (08:29→20:59)
[2017-02-28] MEDS: NICOTINE 21 MG/24 HR PATCH T-DERMAL PRN (08:38)
[2017-02-28 10:17] VITALS: BP 155/77; PULSE 102
--- NOTE | 2017-02-28 14:45 | HHI.PYPN ---
Subjective Chief Complaint: aggressive behavior Remarks Patient was seen and case discussed with nursing. Patient is pleasant and cooperative with exam. Continues to have very poor insight into her admission. Appears mildly confused. Looking forward to a visit with her today. Behaving well on the unit compliant with medications Mental Status Examination Appearance: Disheveled Consciousness: Alert, Vigilant Orientation: Person, Place (at least) Motor Activity: Other (no hand tremor, no cogwheeling, no hypomimia, no dystonia, no dyskinesia) Speech: Other (somewhat terse but otherwise fairly unremarkable) Language: Adequate Fund of Knowledge: Adequate Attention and Concentration: Easily Distracted Memory: Impaired Mood: Irritable, Other (Dysphoric) Affect: Irritable, Labile Thought Process & Associations: Other (perseverative on discharge) Thought Content: Delusional Hallucination Type: None Delusion Type: Paranoid Suicidal Ideation: No (unreliable to contract for safety) Homicidal Ideation: No (unreliable to contract for safety) Insight: Poor Judgment: Poor Results Vitals/IOs Vital Signs Date Time Temp Pulse Resp B/P (MAP) Pulse Ox O2 Delivery O2 Flow Rate FiO2 02/28/17 10:17 102 155/77 (103) 02/28/17 05:53 97.1 18 97 02/24/17 14:50 Room Air Assessment & Plan Problem List: (1) Bipolar disorder, current episode mixed, severe, with psychotic features ICD Codes: F31.64 - Bipolar disorder, current episode mixed, severe, with psychotic features (2) Major frontotemporal neurocognitive disorder, possible ICD Codes: G31.09 - Other frontotemporal dementia; F02.80 - Dementia in other diseases classified elsewhere without behavioral disturbance Assessment & Plan Continue current treatment plan Justification for Cont. Inpt. Patient would decompensate in a less restrictive setting Request HC Surrog/Guard Advoc?: Yes Truong Mcmahon DO Feb 28, 2017 14:45
[2017-02-28 18:45] VITALS: BP 162/78; PULSE 84; RESP 18; TEMP 97.9; O2SAT 99
[2017-02-28] MEDS: REMOVE OLD NICOTINE PATCH T-DERMAL SCH (21:00)
[2017-02-28] MEDS: diphenhydrAMINE HCL 25 MG CAP PO PRN (21:33)
[2017-03-01 06:21] VITALS: BP 141/66; PULSE 87; RESP 16; TEMP 97.8; O2SAT 96
--- NOTE | 2017-03-01 08:21 | HHI.PYPN ---
Subjective Chief Complaint: aggressive behavior Remarks Patient seen and examined with nurse. Chart reviewed. Case discussed with nursing staff who reports the patient is somewhat attention seeking. On my examination today, the patient says "I feel fine." She denies any SI, HI or AVH. Denies any paranoia. She says that she had a visit with her over the weekend and that they have "made up." She is requesting to be discharged today. I have spoken with the counselor who has received a lengthy message from the patient's reportedly to the effect that the visit did not go well and he is very concerned about the patient returning home at this point. Patient continues to display an irritable edge. Insight is quite poor. Denies side effects from medications. No physical complaints. Review of Systems ROS Limitations: Poor Historian Except as stated in HPI: all other systems reviewed are Neg Mental Status Examination Appearance: Appropriate Consciousness: Alert Orientation: Person, Place Motor Activity: Other (no motor abnormalities noted) Speech: Unremarkable Language: Adequate Fund of Knowledge: Adequate Attention and Concentration: Easily Distracted Memory: Impaired Mood: Irritable Affect: Irritable Thought Process & Associations: Other (remains perseverative on discharge) Thought Content: Preoccupations Hallucination Type: None Delusion Type: None (no delusions elicited today, but I fear that the patient is minimizing) Suicidal Ideation: No (unreliable to contract for safety) Homicidal Ideation: No (unreliable to contract for safety) Insight: Poor Judgment: Poor Results Labs Labs reviewed. Vitals/IOs Vital Signs Date Time Temp Pulse Resp B/P (MAP) Pulse Ox O2 Delivery O2 Flow Rate FiO2 03/01/17 06:45 18 03/01/17 06:21 97.8 87 141/66 (91) 96 Assessment & Plan Problem List: (1) Bipolar disorder, current episode mixed, severe, with psychotic features ICD Codes: F31.64 - Bipolar disorder, current episode mixed, severe, with psychotic features (2) Major frontotemporal neurocognitive disorder, possible ICD Codes: G31.09 - Other frontotemporal dementia; F02.80 - Dementia in other diseases classified elsewhere without behavioral disturbance Assessment & Plan Titrate Seroquel to 100 mg twice daily for mood stabilization. Continue Zoloft as ordered. Continue to monitor on the inpatient unit. Continue other medications and care as ordered. Justification for Cont. Inpt. Med changes. Risk for decompensation in less restrictive environment. Discharge Planning Pending stabilization. Case discussed with counselor. Request HC Surrog/Guard Advoc?: Yes Homero Mo MD Mar 01, 2017 08:21
[2017-03-01] MEDS: LISINOPRIL 10 MG TAB PO SCH (08:52)
[2017-03-01] MEDS: NICOTINE 21 MG/24 HR PATCH T-DERMAL PRN (08:52)
[2017-03-01] MEDS: QUEtiapine FUMARATE 25 MG TAB PO SCH (08:53)
[2017-03-01] MEDS: metFORMIN HCL 500 MG TAB PO SCH ×2 (08:53→17:10)
[2017-03-01] MEDS: SERTRALINE HCL 50 MG TAB PO SCH (08:53)
[2017-03-01 18:26] VITALS: BP 124/80; PULSE 100; RESP 18; TEMP 98.5; O2SAT 97
[2017-03-01] MEDS: QUEtiapine FUMARATE 100 MG TAB PO SCH (20:55)
[2017-03-01] MEDS: LORazepam 1 MG TAB PO PRN (21:00)
[2017-03-01] MEDS: diphenhydrAMINE HCL 25 MG CAP PO PRN (21:00)
[2017-03-01] MEDS: REMOVE OLD NICOTINE PATCH T-DERMAL SCH (21:00)
[2017-03-02 06:00] VITALS: BP 153/74; PULSE 94; RESP 18; TEMP 98.4; O2SAT 98
[2017-03-02] MEDS: SERTRALINE HCL 50 MG TAB PO SCH (08:47)
[2017-03-02] MEDS: LISINOPRIL 10 MG TAB PO SCH (08:47)
[2017-03-02] MEDS: metFORMIN HCL 500 MG TAB PO SCH ×2 (08:48→17:30)
[2017-03-02] MEDS: QUEtiapine FUMARATE 100 MG TAB PO SCH (08:48)
[2017-03-02] MEDS: NICOTINE 21 MG/24 HR PATCH T-DERMAL PRN (08:49)
--- NOTE | 2017-03-02 10:41 | HHI.PYPN ---
Subjective Chief Complaint: aggressive behavior Remarks Patient seen and examined with nurse. Chart reviewed. Case discussed with nursing staff who reports the patient was overheard on the telephone telling her to say that everything is okay so that she can return home. Case discussed in treatment team with counselor, occupational therapist and recreational therapist. Therapists do note that the patient is less aggressive and groups. On my examination today, the patient remains quite irritable and dysphoric. She is fixated and perseverative on discharge. She says "I'm all done." She threatens to get a putty mixer if she is not discharged today. Denies side effects from medications. No physical complaints. Review of Systems ROS Limitations: Poor Historian Except as stated in HPI: all other systems reviewed are Neg Mental Status Examination Appearance: Appropriate Consciousness: Alert Orientation: Person, Place Motor Activity: Other (no abnormal motor movements noted) Speech: Unremarkable Language: Adequate Fund of Knowledge: Adequate Attention and Concentration: Easily Distracted Memory: Impaired Mood: Irritable, Other (restricteddysphoric) Affect: Irritable, Other (restricted) Thought Process & Associations: Other (perseverative on discharge) Thought Content: Preoccupations Hallucination Type: None Delusion Type: None (no delusions elicited today, but I fear that the patient is minimizing) Suicidal Ideation: No (no SI) Homicidal Ideation: No (no HI) Insight: Poor Judgment: Poor Results Labs Labs reviewed. No new labs. PO intake somewhat spotty, and I have consulted the naturalization examiner. Vitals/IOs Vital Signs Date Time Temp Pulse Resp B/P (MAP) Pulse Ox O2 Delivery O2 Flow Rate FiO2 03/02/17 06:00 98.4 94 18 153/74 (100) 98 Assessment & Plan Problem List: (1) Bipolar disorder, current episode mixed, severe, with psychotic features ICD Codes: F31.64 - Bipolar disorder, current episode mixed, severe, with psychotic features (2) Major frontotemporal neurocognitive disorder, possible ICD Codes: G31.09 - Other frontotemporal dementia; F02.80 - Dementia in other diseases classified elsewhere without behavioral disturbance Assessment & Plan Titrate Seroquel to 150 mg twice daily for mood stabilization. Continue Zoloft as ordered. Continue to monitor on the inpatient unit. Continue other medications and care as ordered. Justification for Cont. Inpt. Med changes. Risk for decompensation in less restrictive environment. Discharge Planning Counselor to reach out the patient's . Possible discharge home with home health care. Request HC Surrog/Guard Advoc?: Yes Homero Mo MD Mar 02, 2017 10:41
[2017-03-02] MEDS: ACETAMINOPHEN 325 MG TAB PO PRN (14:26)
[2017-03-02 18:27] VITALS: BP 146/66; PULSE 94; RESP 18; TEMP 98.4; O2SAT 98
[2017-03-02] MEDS: diphenhydrAMINE HCL 25 MG CAP PO PRN (20:41)
[2017-03-02] MEDS: QUEtiapine FUMARATE 25 MG TAB PO SCH (20:41)
[2017-03-02] MEDS: REMOVE OLD NICOTINE PATCH T-DERMAL SCH (20:42)
[2017-03-02] MEDS: hydrOXYzine HCL 25 MG TAB PO PRN (20:42)
[2017-03-03 05:38] VITALS: BP 138/64; PULSE 97; RESP 18; TEMP 98.4; O2SAT 97
[2017-03-03] MEDS: ACETAMINOPHEN 325 MG TAB PO PRN ×2 (06:55→17:06)
[2017-03-03] MEDS: NICOTINE 21 MG/24 HR PATCH T-DERMAL PRN (08:45)
[2017-03-03] MEDS: SERTRALINE HCL 50 MG TAB PO SCH (08:46)
[2017-03-03] MEDS: metFORMIN HCL 500 MG TAB PO SCH ×2 (08:46→17:00)
[2017-03-03] MEDS: QUEtiapine FUMARATE 25 MG TAB PO SCH ×2 (08:46→20:37)
[2017-03-03] MEDS: LISINOPRIL 10 MG TAB PO SCH (08:47)
[2017-03-03] MEDS: LORazepam 1 MG TAB PO PRN (09:30)
--- NOTE | 2017-03-03 13:18 | PD.TTN ---
Patient Problems 1. Discharge planning 2. Medication compliance 3. Knowledge deficit 4. Lack of coping skills Progress Toward Goals Provider Present: Dr. Chi Mo Provider Input: Pt has been started on Zoloft as well as Seroquel. 03/02- Pt medication regiment continues to be adjusted including titration of Seroquel. Nurse(s) Present: Elodia Gonzalez RN Nurse(s) Input: Pt has been demanding, easily agitated but not violent, medication compliant and appropriate. 03/02- Elda Dubois RN Pt appears agitated and demanding yet takes her medication and is withdrawn. Psychiatric Counselors Present: RENU Hollingsworth Psych Therapist Input: Pt appears easily agitated, fixated on her , withdrawn, demanding and appropriate. She presents with limited coping and emotional regulation skills. Pt presents as medication compliant though she has limited insight into condition and need for care. 03/02- Pt appears labile, demanding and easily agitated but has been compliant on unit with medication. She remains largely withdrawn and focused on going home. Pt presents with limited coping and emotional regulation skills. Pt presents with limited insight into condition and need for care. Pt will return home after discharge. Group Spec/RT/OT/GOMEZ Present: DAJA Kruger Group Spec/RT/OT/GOMEZ Input: Pt is a new admission and will be evaluated. 03/02- DAJA Kruger Pt mood appears calmer. She will attend group activities when encouraged. Discharge Plan Pt was home with her where she will likely return after discharge. She will be linked to outpatient psychiatric services. Documentation Scribe: RENU Hollingsworth Jonathan LM[facility] Mar 03, 2017 13:18
--- NOTE | 2017-03-03 14:14 | HHI.PYPN ---
Subjective Chief Complaint: aggressive behavior Remarks Patient seen and examined with nurse. Chart reviewed. Case discussed with nursing staff reports patient is sarcastic and entitled. Case discussed with counselor. On my examination today, the patient complains of feeling somewhat anxious. She declines medication adjustment however. She denies AVH. Denies SI or HI. Somewhat medication seeking for Ativan. Remains irritable. Says that she will be leaving the hospital tomorrow regardless of the outcome of [place]. I did endeavor to discuss legal status with her, but she is not really able to process such a conversation at this point. Denies side effects from medications. No physical complaints. Review of Systems ROS Limitations: Poor Historian Except as stated in HPI: all other systems reviewed are Neg Mental Status Examination Appearance: Appropriate Consciousness: Alert, Vigilant Orientation: Person, Place Motor Activity: Other (no abnormal motor movements noted) Speech: Unremarkable Language: Adequate Fund of Knowledge: Adequate Attention and Concentration: Easily Distracted Memory: Impaired Mood: Irritable, Other (dysphoric) Affect: Irritable, Other (restricted) Thought Process & Associations: Other (remains perseverative on discharge) Thought Content: Preoccupations Hallucination Type: None Delusion Type: None (no delusions elicited today, but I fear that the patient is minimizing) Suicidal Ideation: No (unreliable contract for safety) Homicidal Ideation: No (unreliable to contract for safety) Insight: Poor Judgment: Poor Results Labs Labs reviewed. No new labs. Vitals/IOs Vital Signs Date Time Temp Pulse Resp B/P (MAP) Pulse Ox O2 Delivery O2 Flow Rate FiO2 03/03/17 05:38 98.4 97 18 138/64 (88) 97 Assessment & Plan Problem List: (1) Bipolar disorder, current episode mixed, severe, with psychotic features ICD Codes: F31.64 - Bipolar disorder, current episode mixed, severe, with psychotic features (2) Major frontotemporal neurocognitive disorder, possible ICD Codes: G31.09 - Other frontotemporal dementia; F02.80 - Dementia in other diseases classified elsewhere without behavioral disturbance Assessment & Plan Continue Seroquel and Zoloft as ordered. Patient has been scoring minimally on the CIWA scale and has no signs of withdrawal presently; discontinue CIWA Ativan and monitor. Continue other medications and care as ordered. Justification for Cont. Inpt. Risk for decompensation in less restrictive environment Discharge Planning Pending psychiatric stabilization Request HC Surrog/Guard Advoc?: Yes Homero Mo MD Mar 03, 2017 14:14
[2017-03-03 18:00] VITALS: BP 140/77; PULSE 77; RESP 18; TEMP 98.6; O2SAT 99
[2017-03-03] MEDS: diphenhydrAMINE HCL 25 MG CAP PO PRN (20:37)
[2017-03-03] MEDS: hydrOXYzine HCL 25 MG TAB PO PRN (20:37)
[2017-03-03] MEDS: REMOVE OLD NICOTINE PATCH T-DERMAL SCH (20:39)
[2017-03-04] MEDS: ACETAMINOPHEN 325 MG TAB PO PRN ×2 (03:43→09:16)
[2017-03-04 05:31] VITALS: BP 152/76; PULSE 94; RESP 16; TEMP 98.7; O2SAT 97
[2017-03-04] MEDS: QUEtiapine FUMARATE 25 MG TAB PO SCH (09:14)
[2017-03-04] MEDS: SERTRALINE HCL 50 MG TAB PO SCH (09:14)
[2017-03-04] MEDS: metFORMIN HCL 500 MG TAB PO SCH (09:15)
[2017-03-04] MEDS: LISINOPRIL 10 MG TAB PO SCH (09:15)
[2017-03-04] MEDS ORDERED: SERO25TA PO (12:07)
[2017-03-04] MEDS ORDERED: AMLO10 PO (12:07)
[2017-03-04] MEDS ORDERED: ZOLO50TA PO (12:07)
[2017-03-04] MEDS ORDERED: LISI10TA3 PO (12:07)
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
--- NOTE | 2017-03-04 13:52 | HHI.FF ---
Face to Face Verification Diagnosis: (1) Major frontotemporal neurocognitive disorder, possible Occupational Therapy Order: Evaluate and Treat Home Health Nursing Order: Medical education Signs/symptoms of disease process Instructions: Home psych nursing. All Terrain Vehicle Technician Order: To Evaluate: Living conditions/environment, Support services Order: To Provide: Long range planning, Community services I have seen patient Taniya Mckenzie on 03/04/17. My clinical findings support the need for the requested home health care services because: Need for psychosocial assistance Impaired cognition/judgement I certify that my clinical findings support that this patient is homebound because: Impaired cognitive ability/safety Need for psychosocial assistance Homero Mo MD Mar 04, 2017 13:52
== END 2017-03-04 13:50 | disposition left against medical advice (07) | DRG 885 ==
LOC: NEPJ 14:18 → NEDA 17:12 → H270 18:19 → H260 02-28 12:20
PROVIDERS: ADMIT Psychiatry & Neurology Psychiatry; ATTEND Psychiatry & Neurology Psychiatry
DX: F31.64 Bipolar disorder, current episode mixed, severe, with psychotic features (principal); J44.9 Chronic obstructive pulmonary disease, unspecified; G31.09 Other frontotemporal neurocognitive disorder; E11.9 Type 2 diabetes mellitus without complications; F02.80 Dementia in other diseases classified elsewhere, unspecified severity, without behavioral disturbance, psychotic disturbance, mood disturbance, and anxiety; R45.850 Homicidal ideations; D64.9 Anemia, unspecified; I10 Essential (primary) hypertension; E78.5 Hyperlipidemia, unspecified; E87.6 Hypokalemia; F17.210 Nicotine dependence, cigarettes, uncomplicated; G89.4 Chronic pain syndrome; K21.9 Gastro-esophageal reflux disease without esophagitis; F41.9 Anxiety disorder, unspecified; M19.90 Unspecified osteoarthritis, unspecified site; M54.5 Low back pain; M54.6 Pain in thoracic spine; M79.601 Pain in right arm; Z23 Encounter for immunization; Z79.84 Long term (current) use of oral hypoglycemic drugs
CPT/HCPCS: 71101; 80048; 80053; 80061; 80156; 80307; 82607; 83036; 83735; 85025; 86592; 86703; 90732; 93005

== ENCOUNTER 2017-03-09 15:46 | Inpatient (IN) | payer MEDICARE, MEDICAID, OTHER ==
[~2017-03-09] VITALS: Ht 144.8 cm; Wt 41.9 kg
[~2017-03-09 15:46] MED LIST changes: +AMLO10 PO; -AMLO5 PO; -CLON1 PO; +LISI10TA3 PO; -OLAN10TA PO; +SERO25TA PO; +ZOLO50TA PO
[2017-03-09 16:09] VITALS: BP 146/64; PULSE 80; RESP 19; TEMP 97.7; O2SAT 99
[2017-03-09 16:11] VITALS: BP 146/64; PULSE 80; RESP 19; TEMP 97.7; O2SAT 99
[2017-03-09] MEDS ORDERED: PRAV20TA2 PO (16:16)
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
[2017-03-09 18:15] LABS: AUTOMATED NEUTROPHIL # 2.6 TH/MM3 (1.8-7.7); BASOPHIL % 0.7 % (0.0-2.0); EOSINOPHIL # 0.2 TH/MM3 (0-0.4); EOSINOPHIL % 2.9 % (0.0-4.0); HEMATOCRIT 32.6 % (35.0-46.0); HEMOGLOBIN 11.2 GM/DL (11.6-15.3); LYMPH % 49.8 % (9.0-44.0); LYMPHOCYTE # 3.1 TH/MM3 (1.0-4.8); MEAN CORPUSCULAR HGB CONC 34.4 % (32.0-36.0); MONO % 5.5 % (0.0-8.0); MONOCYTE # 0.3 TH/MM3 (0-0.9); NEUT % 41.1 % (16.0-70.0); PLATELET COUNT 375 TH/MM3 (150-450); RED CELL DISTRIBUTION WIDTH 14.1 % (11.6-17.2); WHITE BLOOD COUNT 6.3 TH/MM3 (4.0-11.0)
[2017-03-09 18:34] LABS: ALBUMIN 3.6 GM/DL (3.4-5.0); AST (GOT) 19 U/L (15-37); BICARBONATE 28.1 MEQ/L (21.0-32.0); BLOOD UREA NITROGEN 13 MG/DL (7-18); CALCIUM 9.2 MG/DL (8.5-10.1); CHLORIDE 105 MEQ/L (98-107); CREATININE 0.76 MG/DL (0.50-1.00); GLOMERULAR FILTRATION RATE 76 ML/MIN (>89); GLUCOSE,RANDOM 100 MG/DL (74-106); SODIUM (NA) 138 MEQ/L (136-145)
[2017-03-09 18:35] LABS: ALT (GPT) 15 U/L (10-53)
[2017-03-09 18:37] LABS: ACETAMINOPHEN LESS THAN 2.0 MCG/ML (10.0-30.0); ALKALINE PHOSPHATASE 118 U/L (45-117); TOTAL BILIRUBIN ADULT 0.1 MG/DL (0.2-1.0); TOTAL PROTEIN 7.3 GM/DL (6.4-8.2)
[2017-03-09 18:38] LABS: BILIRUBIN, URINE NEG (NEG); BLOOD, URINE NEG (NEG); GLUCOSE,URINE NEG (NEG); KETONE, URINE NEG (NEG); NITRITE,URINE NEG (NEG); SQUAMOUS EPITHELIAL CELL URINE <1 /hpf (0-5); URINE COLOR LIGHT-YELLOW (YELLW/STRAW); URINE LEUKOCYTE ESTERASE NEG (NEG)
[2017-03-09] MEDS ORDERED: NICOTINE 21 MG/24 HR PATCH T-DERMAL ONE (19:30)
[2017-03-09] MEDS ORDERED: MAGNESIUM HYDROXIDE SUSP 30 ML CUP PO PRN (21:45)
[2017-03-09] MEDS ORDERED: ALUMINUM/MAGNESIUM/SIMETH 30 ML CUP PO PRN (21:45)
[2017-03-09] MEDS ORDERED: BENZTROPINE MESYLATE 1 MG TAB PO PRN (21:45)
[2017-03-09] MEDS ORDERED: ACETAMINOPHEN 325 MG TAB PO PRN (21:45)
[2017-03-09] MEDS ORDERED: BENZTROPINE MESYLATE 2 MG/2 ML VIAL IM PRN (21:45)
[2017-03-09] MEDS ORDERED: PILL SPLITTER OTHER PRN (22:00)
[2017-03-09 22:58] VITALS: BP 128/60; PULSE 72; RESP 16; TEMP 97.9; O2SAT 97
[2017-03-10 06:00] VITALS: BP 127/59; PULSE 75; RESP 14; TEMP 97.4; O2SAT 97
[2017-03-10] MEDS ORDERED: QUEtiapine FUMARATE 300 MG TAB PO SCH (09:00)
[2017-03-10] MEDS: REMOVE OLD PATCH T-DERMAL SCH (09:00)
[2017-03-10] MEDS ORDERED: SERTRALINE HCL 50 MG TAB PO SCH (09:00)
[2017-03-10] MEDS: LISINOPRIL 10 MG TAB PO SCH (09:00)
[2017-03-10] MEDS: metFORMIN HCL 500 MG TAB PO SCH ×2 (09:00→17:07)
[2017-03-10] MEDS: PRAVASTATIN SOD 20 MG TAB PO SCH (09:00)
[2017-03-10 12:36] LABS: BICARBONATE 26.9 MEQ/L (21.0-32.0); CALCIUM 8.8 MG/DL (8.5-10.1); CREATININE 0.63 MG/DL (0.50-1.00)
[2017-03-10] MEDS ORDERED: NICOTINE 21 MG/24 HR PATCH T-DERMAL SCH (14:30)
[2017-03-10] MEDS ORDERED: ALUMINUM/MAGNESIUM/SIMETH 30 ML CUP PO PRN (14:30)
[2017-03-10] MEDS ORDERED: LORazepam 1 MG TAB PO PRN (14:30)
[2017-03-10] MEDS ORDERED: LORazepam 0.5 MG TAB PO PRN (14:30)
[2017-03-10] MEDS ORDERED: LORazepam 2 MG/ML VIAL IM PRN ×2 (14:30)
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
[2017-03-10] MEDS ORDERED: BISACODYL 10 MG SUPP RECTAL PRN (15:45)
[2017-03-10] MEDS: MAGNESIUM HYDROXIDE SUSP 30 ML CUP PO PRN (16:44)
[2017-03-10] MEDS: ACETAMINOPHEN 325 MG TAB PO PRN (17:09)
[2017-03-10 19:14] VITALS: BP 122/66; PULSE 68; RESP 18; TEMP 98.6; O2SAT 98
[2017-03-10] MEDS: traZODone HCL 50 MG TAB PO SCH (21:18)
[2017-03-11 05:49] VITALS: BP 169/80; PULSE 69; RESP 16; TEMP 97.6; O2SAT 99
[2017-03-11] MEDS: MAGNESIUM HYDROXIDE SUSP 30 ML CUP PO PRN (07:35)
[2017-03-11] MEDS: ACETAMINOPHEN 325 MG TAB PO PRN ×2 (07:39→16:56)
[2017-03-11 08:39] LABS: BICARBONATE 27.4 MEQ/L (21.0-32.0); BLOOD UREA NITROGEN 11 MG/DL (7-18); CALCIUM 9.3 MG/DL (8.5-10.1); CHLORIDE 104 MEQ/L (98-107); GLUCOSE,RANDOM 82 MG/DL (74-106); SODIUM (NA) 138 MEQ/L (136-145)
[2017-03-11 08:41] LABS: CREATININE 0.63 MG/DL (0.50-1.00); GLOMERULAR FILTRATION RATE 94 ML/MIN (>89); HDL CHOLESTEROL 63.3 MG/DL (40.0-60.0)
[2017-03-11 08:42] LABS: CHOLESTEROL 209 MG/DL (120-200); LDL CHOLESTEROL 116 MG/DL (0-99); TRIGLYCERIDES 148 MG/DL (42-150)
[2017-03-11] MEDS: metFORMIN HCL 500 MG TAB PO SCH ×2 (08:50→18:04)
[2017-03-11] MEDS: PRAVASTATIN SOD 20 MG TAB PO SCH (08:50)
[2017-03-11] MEDS: LISINOPRIL 10 MG TAB PO SCH (08:51)
[2017-03-11] MEDS: REMOVE OLD PATCH T-DERMAL SCH (09:04)
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
[2017-03-11 16:44] LABS: HEMOGLOBIN A1C 5.9 % (4.3-6.0)
[2017-03-11 17:31] VITALS: BP 185/85; PULSE 91; RESP 16; TEMP 97.6; O2SAT 100
[2017-03-11 17:53] VITALS: BP 185/85; PULSE 91; RESP 16; TEMP 97.6; O2SAT 100
[2017-03-11] MEDS ORDERED: cloNIDine HCL 0.1 MG TAB PO ONE (18:00)
[2017-03-11] MEDS: traZODone HCL 50 MG TAB PO SCH (21:12)
[2017-03-12 06:06] VITALS: BP 176/78; PULSE 83; RESP 17; TEMP 97.7; O2SAT 99
[2017-03-12] MEDS: PRAVASTATIN SOD 20 MG TAB PO SCH (08:19)
[2017-03-12] MEDS: REMOVE OLD PATCH T-DERMAL SCH (08:20)
[2017-03-12] MEDS: metFORMIN HCL 500 MG TAB PO SCH ×2 (08:20→18:00)
[2017-03-12] MEDS: LISINOPRIL 10 MG TAB PO SCH (08:20)
[2017-03-12] MEDS: MAGNESIUM HYDROXIDE SUSP 30 ML CUP PO PRN (10:30)
[2017-03-12] MEDS: ACETAMINOPHEN 325 MG TAB PO PRN ×2 (10:30→20:07)
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
[2017-03-12 18:00] VITALS: BP 160/77; PULSE 88; RESP 16; TEMP 97.6; O2SAT 100
[2017-03-12] MEDS: traZODone HCL 50 MG TAB PO SCH (20:06)
[2017-03-12] MEDS: hydrOXYzine HCL 50 MG TAB PO PRN (20:07)
[2017-03-13] MEDS: ACETAMINOPHEN 325 MG TAB PO PRN ×2 (01:43→09:18)
[2017-03-13 06:02] VITALS: BP 181/80; PULSE 81; RESP 17; TEMP 98.2; O2SAT 98
[2017-03-13 06:21] VITALS: BP 191/79
[2017-03-13] MEDS: hydrOXYzine HCL 50 MG TAB PO PRN ×2 (06:39→09:16)
[2017-03-13] MEDS: MAGNESIUM HYDROXIDE SUSP 30 ML CUP PO PRN (06:41)
[2017-03-13] MEDS: metFORMIN HCL 500 MG TAB PO SCH ×2 (08:57→17:14)
[2017-03-13] MEDS: PRAVASTATIN SOD 20 MG TAB PO SCH (08:57)
[2017-03-13] MEDS: LISINOPRIL 10 MG TAB PO SCH (08:58)
[2017-03-13] MEDS: REMOVE OLD PATCH T-DERMAL SCH (09:00)
[2017-03-13] MEDS: NICOTINE 21 MG/24 HR PATCH T-DERMAL PRN (09:00)
--- NOTE | 2017-03-13 13:09 | HHI.PYPN ---
Subjective Chief Complaint: patient manic assaultive Remarks Patient was seen and case discussed with nursing. Patient is guarded, short, and irritable during the interview. Per nursing she was irritable this morning but patient denies this behavior. Insight is quite poor thought process is perseverative. Blood pressure has been elevated Mental Status Examination Appearance: Appropriate Consciousness: Alert Orientation: Person, Place, Date/Time Motor Activity: Normal gait Speech: Unremarkable Language: Adequate Fund of Knowledge: Adequate Attention and Concentration: Adequate Memory: Unremarkable Mood: Irritable, Other (dysphoric) Affect: Other (consistent with mood) Thought Process & Associations: Other (perseverant) Thought Content: Bizarre thinking Hallucination Type: None (Appears int stim though) Delusion Type: Paranoid Suicidal Ideation: No Suicidal Plan: No Suicidal Intention: No Homicidal Ideation: No Homicidal Plan: No Homicidal Intention: No Insight: Poor Judgment: Poor Results Labs Test 03/13/17 07:48 Carbamazepine (Tegretol) Level 4.4 MCG/ML Vitals/IOs Vital Signs Date Time Temp Pulse Resp B/P (MAP) Pulse Ox O2 Delivery O2 Flow Rate FiO2 03/13/17 06:21 191/79 (116) 03/13/17 06:02 98.2 81 17 98 03/09/17 16:11 Room Air Intake and Output 03/13/17 03/13/17 03/14/17 08:00 16:00 00:00 Intake Total 120 ml Balance 120 ml Assessment & Plan Problem List: (1) Bipolar disorder, current episode manic severe with psychotic features ICD Codes: F31.2 - Bipolar disorder, current episode manic severe with psychotic features Assessment & Plan Increase lisinopril to 20 mg by mouth every morning. Nursing asked to recheck blood pressure now. Patient not complaining of any physical symptoms Justification for Cont. Inpt. Patient will decompensate in a less restrictive setting Truong Mcmahon DO Mar 13, 2017 13:09
[2017-03-13] MEDS ORDERED: LISINOPRIL 10 MG TAB PO ONE (13:15)
[2017-03-13 13:16] VITALS: BP 153/73; PULSE 88; RESP 18
[2017-03-13 18:03] VITALS: BP 158/74; PULSE 72; RESP 17; TEMP 98.2; O2SAT 100
[2017-03-13] MEDS: traZODone HCL 50 MG TAB PO SCH (22:00)
[2017-03-14 06:04] VITALS: BP 168/79; PULSE 83; RESP 16; TEMP 98.1; O2SAT 100
[2017-03-14] MEDS: REMOVE OLD PATCH T-DERMAL SCH (09:00)
[2017-03-14] MEDS: PRAVASTATIN SOD 20 MG TAB PO SCH (09:06)
[2017-03-14] MEDS: metFORMIN HCL 500 MG TAB PO SCH ×2 (09:06→18:00)
[2017-03-14] MEDS: LISINOPRIL 20 MG TAB PO SCH (09:06)
[2017-03-14] MEDS: NICOTINE 21 MG/24 HR PATCH T-DERMAL PRN (09:11)
[2017-03-14 11:35] VITALS: BP 165/72; PULSE 77
--- NOTE | 2017-03-14 12:59 | HHI.PYPN ---
Subjective Chief Complaint: patient manic assaultive Remarks Patient was seen and case discussed with nursing. Blood pressure has been elevated despite increasing lisinopril yesterday. The visit from her . Patient is rather vague without spontaneous speech. Denies psychotic symptoms continues to have poor insight into her admission Mental Status Examination Appearance: Appropriate Consciousness: Alert Orientation: Person, Place, Date/Time Motor Activity: Normal gait Speech: Unremarkable Language: Adequate Fund of Knowledge: Adequate Attention and Concentration: Adequate Memory: Unremarkable Mood: Irritable, Other (dysphoric) Affect: Other (consistent with mood) Thought Process & Associations: Other (perseverant) Thought Content: Bizarre thinking Hallucination Type: None (Appears int stim though) Delusion Type: Paranoid Suicidal Ideation: No Suicidal Plan: No Suicidal Intention: No Homicidal Ideation: No Homicidal Plan: No Homicidal Intention: No Insight: Poor Judgment: Poor Results Vitals/IOs Vital Signs Date Time Temp Pulse Resp B/P (MAP) Pulse Ox O2 Delivery O2 Flow Rate FiO2 03/14/17 11:35 77 165/72 (103) 03/14/17 06:04 98.1 16 100 Intake and Output 03/14/17 03/14/17 03/15/17 08:00 16:00 00:00 Intake Total 120 ml Balance 120 ml Assessment & Plan Problem List: (1) Bipolar disorder, current episode manic severe with psychotic features ICD Codes: F31.2 - Bipolar disorder, current episode manic severe with psychotic features Assessment & Plan Continue current treatment plan Justification for Cont. Inpt. Patient would decompensate in a less restrictive setting Truong Mcmahon DO Mar 14, 2017 12:58
--- NOTE | 2017-03-14 13:46 | PD.CONS ---
[facility] By Reason for Consult management of hypertension Primary Care Physician Unknown Diagnoses: History of Present Illness patient is a 67 y/o female with history of hypertension, diabetes and dyslipidemia who's been admitted to the psych unit because of homicidal ideation. she was noted to have elevated blood pressure. the dose of her lisinopril was increased yesterday but BP is still elevated. she says that her BP is ' good' at home most of the time. she denies any chest pain or dizziness although she's complaining of mild headache. she denies any other complaints. Review of Systems Constitutional: DENIES: Fever, Weight loss, Chills, Night Sweats Eyes: DENIES: Blurred vision, Diplopia, Vision loss, Double Vision Ears, nose, mouth, throat: DENIES: Tinnitus, Vertigo, Throat pain, Epistaxis Respiratory: DENIES: Apneas, Cough, Snoring, Wheezing, Hemoptysis, Sputum production, Shortness of breath Cardiovascular: DENIES: Chest pain, Palpitations, Syncope, Dyspnea on Exertion , PND, Lower Extremity Edema, Orthopnea, Claudication Gastrointestinal: DENIES: Abdominal pain, Black stools, Bloody stools, Constipation, Diarrhea, Nausea, Vomiting, Difficulty Swallowing, Anorexia Genitourinary: DENIES: Urinary frequency, Urgency, Hematuria, Dysuria Musculoskeletal: DENIES: Joint pain, Muscle aches, Stiffness, Joint Swelling Integumentary: DENIES: Rash Neurologic: COMPLAINS OF: Headache, DENIES: Abnormal gait, Localized weakness, Paresthesias, Seizures, Speech Problems, Tremor, Poor Balance Psychiatric: DENIES: Anxiety, Confusion, Mood changes, Depression, Hallucinations, Agitation, Suicidal Ideation, Homicidal Ideation, Delusions Past Family Social History Allergies: Coded Allergies: penicillin G (Unverified Allergy, Unknown, 03/09/17) trifluoperazine (Verified Adverse Reaction, Unknown, 03/09/17) Past Medical History hypertension/ diabetes/ dyslipidemia. Past Surgical History C- section Reported Medications lisinopril amlodipine metformin Active Ordered Medications Inpatient Medications Acetaminophen (Tylenol) 650 mg Q4H PRN PO Pain 1-5 or Temp >101F Last administered on 03/13/17at 09:18; Start 03/10/17 at 14:30 Al Hydrox/Mg Hydrox/Simethicone (Mag-Al Plus Susp Liq) 30 ml Q6H PRN PO DYSPEPSIA; Start 03/10/17 at 14:30 Amlodipine Besylate (Norvasc) 10 mg DAILY PO Last administered on 03/14/17at 09: 06; Start 03/10/17 at 09:00 Benztropine Mesylate (Cogentin Inj) 1 mg Q12H PRN IM EXTRA PYRAMIDAL SYMPTOMS; Start 03/09/17 at 21:45 Benztropine Mesylate (Cogentin) 1 mg Q12H PRN PO EXTRA PYRAMIDAL SYMPTOMS; Start 03/09/17 at 21:45 Bisacodyl (Dulcolax Supp) 10 mg DAILY PRN RECTAL CONSTIPATION; Start 03/10/17 at 15:45 Carbamazepine (TEGretol CHEW) 100 mg BID PO Last administered on 03/14/17at 09:00 ; Start 03/10/17 at 14:30 Clonidine (Catapres) 0.1 mg NOW ONCE PO Last administered on 03/11/17at 18:04; Start 03/11/17 at 18:00; Stop 03/11/17 at 18:01; Status DC Hydroxyzine HCl (Atarax) 50 mg Q6H PRN PO ANXIETY Last administered on 09:16; Start 03/10/17 at 14:45 Lisinopril (Prinivil) 10 mg ONCE ONCE PO Last administered on 03/13/17at 13:15; Start 03/13/17 at 13:15; Stop 03/13/17 at 13:16; Status DC Lorazepam (Ativan Inj) 0.5 mg Q12H PRN IM MODERATE TO SEVERE ANXIETY; Start at 14:30; Stop 03/10/17 at 14:50; Status DC Lorazepam (Ativan) 0.5 mg Q12H PRN PO MODERATE TO SEVERE ANXIETY; Start at 14:30; Stop 03/10/17 at 14:50; Status DC Magnesium Hydroxide (Milk Of Magnesia Liq) 30 ml DAILY PRN PO CONSTIPATION Last administered on 03/13/17at 06:41; Start 03/10/17 at 14:30 Metformin HCl (Glucophage) 500 mg BIDPC PO Last administered on 03/14/17at 09:06 ; Start 03/10/17 at 09:00 Miscellaneous (Pill Splitter) 1 ea UNSCH PRN OTHER SEE LABEL COMMENTS; Start at 22:00 Miscellaneous Information 1 DAILY T-DERMAL Last administered on 03/14/17at 09:00 ; Start 03/10/17 at 09:00 Nicotine (Habitrol 21 Mg Patch.24 Hr) 1 patch DAILY T-DERMAL ; Start 03/10/17 at 14:30; Stop 03/10/17 at 14:38; Status DC Pravastatin Sodium (Pravachol) 20 mg DAILY PO Last administered on 03/14/17at 09: 06; Start 03/10/17 at 09:00 Quetiapine Fumarate (SEROquel) 150 mg BID PO ; Start 03/10/17 at 09:00; Stop at 14:31; Status DC Sertraline HCl (Zoloft) 25 mg DAILY PO ; Start 03/10/17 at 09:00; Stop 03/10/17 at 14:31; Status DC Trazodone HCl (Desyrel) 50 mg HS PO Last administered on 03/13/17at 22:00; Start 03/10/17 at 21:00 Social History no smoking or drinking. Physical Exam Vital Signs Vital Signs Date Time Temp Pulse Resp B/P (MAP) Pulse Ox O2 Delivery O2 Flow Rate FiO2 03/14/17 11:35 77 165/72 (103) 03/14/17 06:04 98.1 83 16 168/79 (108) 100 03/13/17 18:03 98.2 72 17 158/74 (102) 100 Physical Exam GENERAL: This is a well-nourished, well-developed patient, in no apparent distress. SKIN: No rashes, ecchymoses or lesions. Cool and dry. HEAD: Atraumatic. Normocephalic. No temporal or scalp tenderness. EYES: Pupils equal round and reactive. Extraocular motions intact. No scleral icterus. No injection or drainage. ENT: Nose without bleeding, purulent drainage or septal hematoma. Throat without erythema, tonsillar hypertrophy or exudate. Uvula midline. Airway patent. NECK: Trachea midline. No JVD or lymphadenopathy. Supple, nontender, no meningeal signs. CARDIOVASCULAR: Regular rate and rhythm without murmurs, gallops, or rubs. RESPIRATORY: Clear to auscultation. Breath sounds equal bilaterally. No wheezes , rales, or rhonchi. GASTROINTESTINAL: Abdomen soft, non-tender, nondistended. No hepato-splenomegaly , or palpable masses. No guarding. MUSCULOSKELETAL: Extremities without clubbing, cyanosis, or edema. No joint tenderness, effusion, or edema noted. No calf tenderness. Negative Homans sign bilaterally. NEUROLOGICAL: Awake and alert. Cranial nerves II through XII intact. Motor and sensory grossly within normal limits. Five out of 5 muscle strength in all muscle groups. Normal speech. Laboratory Laboratory Tests Test 03/09/17 17:25 03/09/17 18:06 03/11/17 05:50 03/13/17 07:48 White Blood Count 6.3 TH/MM3 Red Blood Count 3.50 MIL/MM3 Hemoglobin 11.2 GM/DL Hematocrit 32.6 % Mean Corpuscular Volume 93.0 FL Mean Corpuscular Hemoglobin 32.0 PG Mean Corpuscular Hemoglobin Concent 34.4 % Red Cell Distribution Width 14.1 % Platelet Count 375 TH/MM3 Mean Platelet Volume 7.0 FL Neutrophils (%) (Auto) 41.1 % Lymphocytes (%) (Auto) 49.8 % Monocytes (%) (Auto) 5.5 % Eosinophils (%) (Auto) 2.9 % Basophils (%) (Auto) 0.7 % Neutrophils # (Auto) 2.6 TH/MM3 Lymphocytes # (Auto) 3.1 TH/MM3 Monocytes # (Auto) 0.3 TH/MM3 Eosinophils # (Auto) 0.2 TH/MM3 Basophils # (Auto) 0.0 TH/MM3 CBC Comment DIFF FINAL Differential Comment Blood Urea Nitrogen 13 MG/DL 11 MG/DL Creatinine 0.76 MG/DL 0.63 MG/DL Random Glucose 100 MG/DL 82 MG/DL Total Protein 7.3 GM/DL Albumin 3.6 GM/DL Calcium Level 9.2 MG/DL 9.3 MG/DL Alkaline Phosphatase 118 U/L Aspartate Amino Transf (AST/SGOT) 19 U/L Alanine Aminotransferase (ALT/SGPT) 15 U/L Total Bilirubin 0.1 MG/DL Sodium Level 138 MEQ/L 138 MEQ/L Potassium Level 3.8 MEQ/L 4.1 MEQ/L Chloride Level 105 MEQ/L 104 MEQ/L Carbon Dioxide Level 28.1 MEQ/L 27.4 MEQ/L Salicylates Level 3.1 MG/DL Acetaminophen Level LESS THAN 2.0 MCG/ML Ethyl Alcohol Level LESS THAN 3 MG/DL Urine Color LIGHT-YELLOW Urine Turbidity CLEAR Urine pH 5.0 Urine Specific [place] 1.007 Urine Protein NEG mg/dL Urine Glucose (UA) NEG mg/dL Urine Ketones NEG mg/dL Urine Occult Blood NEG Urine Nitrite NEG Urine Bilirubin NEG Urine Urobilinogen LESS THAN 2.0 MG/DL Urine Leukocyte Esterase NEG Urine WBC 1 /hpf Urine Squamous Epithelial Cells <1 /hpf Microscopic Urinalysis Comment CULT NOT INDICATED Urine Opiates Screen POS Urine Barbiturates Screen POS Urine Amphetamines Screen NEG Urine Benzodiazepines Screen NEG Urine Cocaine Screen NEG Urine Cannabinoids Screen NEG Anion Gap 7 MEQ/L Estimat Glomerular Filtration Rate 94 ML/MIN Hemoglobin A1c 5.9 % Triglycerides Level 148 MG/DL Cholesterol Level 209 MG/DL LDL Cholesterol 116 MG/DL HDL Cholesterol 63.3 MG/DL Cholesterol/HDL Ratio 3.30 RATIO Carbamazepine (Tegretol) Level 4.4 MCG/ML Result Diagram: 03/11/17 0550 Assessment and Plan Assessment and Plan A/P - hypertension- uncontrolled lisinopril was increased yesterday- continue with amlodipine- one dose of Procardia XL today- will monitor and adjust the regimen as needed. -diabetes mellitus; continue metformin. -dyslipidemia; on statin -homicidal ideation- management per psych. thank you for the consult. Discussed Condition With the patient and RN. Sam Reinoso MD Mar 14, 2017 13:46
[2017-03-14] MEDS ORDERED: NIFEdipine 30 MG SUSTAINED RELEASE TAB PO ONE (14:00)
[2017-03-14 18:32] VITALS: BP 169/77; PULSE 84; RESP 15; TEMP 98.4; O2SAT 99
[2017-03-14] MEDS: traZODone HCL 50 MG TAB PO SCH (21:40)
[2017-03-14] MEDS: ACETAMINOPHEN 325 MG TAB PO PRN (21:53)
[2017-03-15 05:54] VITALS: BP 118/79; PULSE 86; RESP 16; TEMP 98.3; O2SAT 97
[2017-03-15] MEDS: hydrOXYzine HCL 50 MG TAB PO PRN ×2 (08:29→17:18)
[2017-03-15] MEDS: PRAVASTATIN SOD 20 MG TAB PO SCH (08:29)
[2017-03-15] MEDS: metFORMIN HCL 500 MG TAB PO SCH ×2 (08:29→17:18)
[2017-03-15] MEDS: NICOTINE 21 MG/24 HR PATCH T-DERMAL PRN (08:30)
[2017-03-15] MEDS: LISINOPRIL 20 MG TAB PO SCH (08:41)
[2017-03-15] MEDS: REMOVE OLD PATCH T-DERMAL SCH (08:41)
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
[2017-03-15] MEDS: ACETAMINOPHEN 325 MG TAB PO PRN (17:18)
[2017-03-15] MEDS: MAGNESIUM HYDROXIDE SUSP 30 ML CUP PO PRN (17:18)
[2017-03-15 18:00] VITALS: BP 148/80; PULSE 101; RESP 16; TEMP 98.6; O2SAT 99
[2017-03-15] MEDS: traZODone HCL 50 MG TAB PO SCH (21:16)
[2017-03-16 05:51] VITALS: BP 129/68; PULSE 81; RESP 16; TEMP 97.4; O2SAT 99
[2017-03-16] MEDS: LISINOPRIL 20 MG TAB PO SCH (08:28)
[2017-03-16] MEDS: PRAVASTATIN SOD 20 MG TAB PO SCH (08:28)
[2017-03-16] MEDS: metFORMIN HCL 500 MG TAB PO SCH (08:28)
[2017-03-16] MEDS: hydrOXYzine HCL 50 MG TAB PO PRN (08:28)
[2017-03-16] MEDS: ACETAMINOPHEN 325 MG TAB PO PRN (08:29)
[2017-03-16] MEDS: REMOVE OLD PATCH T-DERMAL SCH (09:00)
[2017-03-16] MEDS ORDERED: TRAZ50TA12 PO (12:10)
[2017-03-16] MEDS ORDERED: CARB100C PO (12:10)
[2017-03-16] MEDS ORDERED: LISI-515 PO (12:10)
[2017-03-16] MEDS ORDERED: AMLO10 PO (12:10)
[2017-03-16] MEDS ORDERED: METF500 PO (12:10)
[2017-03-16] MEDS ORDERED: PRAV20TA2 PO (12:10)
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
== END 2017-03-16 12:40 | disposition home or self-care (01) | DRG 885 ==
LOC: NEDAMB 15:46 → NEDA 21:35 → H260 22:20
PROVIDERS: ADMIT Psychiatry & Neurology Psychiatry; ATTEND Psychiatry & Neurology Psychiatry
DX: F31.2 Bipolar disorder, current episode manic severe with psychotic features (principal); J44.9 Chronic obstructive pulmonary disease, unspecified; R45.850 Homicidal ideations; E11.9 Type 2 diabetes mellitus without complications; I10 Essential (primary) hypertension; Z91.14 Patient's other noncompliance with medication regimen; E78.5 Hyperlipidemia, unspecified; F17.210 Nicotine dependence, cigarettes, uncomplicated; K21.9 Gastro-esophageal reflux disease without esophagitis; G43.909 Migraine, unspecified, not intractable, without status migrainosus; M19.90 Unspecified osteoarthritis, unspecified site; F41.9 Anxiety disorder, unspecified; Z79.84 Long term (current) use of oral hypoglycemic drugs
CPT/HCPCS: 80048; 80053; 80061; 80156; 80307; 81001; 82948; 83036; 85025

== ENCOUNTER 2017-04-28 08:03 | Emergency (ER) | payer MEDICARE, MEDICAID ==
[~2017-04-28] VITALS: Ht 147.3 cm; Wt 40.0 kg
[~2017-04-28 08:03] MED LIST changes: +CARB100C PO; +LISI-515 PO; -LISI10TA3 PO; +PRAV20TA2 PO; -SERO25TA PO; +TRAZ50TA12 PO; -ZOLO50TA PO
[2017-04-28 08:13] VITALS: BP 112/54; PULSE 81; RESP 16; TEMP 97.6; O2SAT 99
--- NOTE | 2017-04-28 08:27 | PD ---
HPI Chief Complaint: Skin Problem Time Seen by Provider: 08:19 Travel History International Travel<30 days: No Contact w/Intl Traveler<30days: No Traveled to known affect area: No History of Present Illness HPI Patient is a 67-year-old female who comes in after she fell today while walking her dogs. She says she landed on her right arm. She denies any pain. She denies hitting her head or any loss of consciousness. She says she was feeling in her normal state of health prior to the incident. She denies chest pain or shortness of breath. She came in mostly for care of her wounds to her right arm. She says her last tetanus shot was a year ago. Severity is mild. PFSH Past Medical History Arthritis: Yes (neck, back) Autoimmune Disease: No Bipolar Disorder: Yes Anxiety: Yes Depression: Yes Cancer: No Cardiovascular Problems: Yes High Cholesterol: Yes (on medication, unsure what type) Chemotherapy: No COPD: Yes Diabetes: Yes Patient Takes Glucophage: Yes Diminished Hearing: No Endocrine: Yes Gastrointestinal Disorders: Yes GERD: Yes Genitourinary: No Headaches: No Hypertension: Yes Immune Disorder: No Musculoskeletal: Yes Neurologic: No Psychiatric: Yes (Reported hx of treatment for anxiety) Reproductive: No Respiratory: Yes (COPD) Radiation Therapy: No Seizures: No Sickle Cell Disease: No Thyroid Disease: No ?: Not Past Surgical History Arteriovenous Shunt: No Section: Yes Gynecologic Surgery: Yes (two cesareans) Insulin Pump: No Joint Replacement: No Other Surgery: Yes (two cesareans) Social History Alcohol Use: No Tobacco Use: Yes ("about 4 cigarettes per day") Substance Use: No (PT DENIES) Allergies-Medications (Allergen,Severity, Reaction): Coded Allergies: penicillin G (Unverified Allergy, Unknown, 04/28/17) trifluoperazine (Verified Adverse Reaction, Unknown, 04/28/17) Reported Meds & Prescriptions Reported Meds & Active Scripts Active Trazodone (Trazodone HCl) 50 Mg Tab 50 Mg PO HS Carbamazepine 100 Mg Chew 100 Mg PO BID Lisinopril 20 Mg Tab 20 Mg PO DAILY Pravastatin 20 Mg Tab 20 Mg PO DAILY Norvasc (Amlodipine Besylate) 10 Mg Tab 10 Mg PO DAILY 10 Days Glucophage (Metformin HCl) 500 Mg Tab 500 Mg PO BIDPC 30 Days Review of Systems General / Constitutional: No: Fever, Chills HENT: No: Headaches, Lightheadedness Cardiovascular: No: Chest Pain or Discomfort Respiratory: No: Shortness of Breath Gastrointestinal: No: Nausea, Vomiting Skin: Positive Other (Abrasions) Neurologic: No: Weakness, Dizziness, Syncope Physical Exam Narrative GENERAL: Awake and alert, in no acute distress. SKIN: Focused skin assessment warm/dry. Several superficial skin tears to the right forearm. HEAD: Atraumatic. Normocephalic. EYES: Pupils equal and round. No scleral icterus. Extraocular movements intact. ENT: No nasal bleeding or discharge. Mucous membranes pink and moist. CARDIOVASCULAR: Regular rate and rhythm. No murmur appreciated. RESPIRATORY: No accessory muscle use. Clear to auscultation. Breath sounds equal bilaterally. MUSCULOSKELETAL: No obvious deformities. No clubbing. No cyanosis. No edema. No tenderness to palpation of the right shoulder, elbow, forearm, wrist. Pulses intact. NEUROLOGICAL: Awake and alert. No obvious cranial nerve deficits. Motor grossly within normal limits. Normal speech. Data Data Last Documented VS Vital Signs Date Time Temp Pulse Resp B/P (MAP) Pulse Ox O2 Delivery O2 Flow Rate FiO2 04/28/17 08:13 97.6 81 16 112/54 (73) 99 MDM Medical Decision Making Medical Screen Exam Complete: Yes Emergency Medical Condition: Yes Medical Record Reviewed: Yes Differential Diagnosis Skin tears versus laceration versus abrasions Narrative Course Patient is a 67-year-old female who comes in due to skin tears to her right arm. She is here for wound care. She has no other complaints. Wounds were cleaned and dressed. She is discharged home. Advised to keep them clean and dry. Advised return anytime for any worsening symptoms. Diagnosis Primary Impression: Skin tear of right forearm without complication Qualified Codes: S51.811A - Laceration without foreign body of right forearm, initial encounter Patient Instructions: General Instructions, Skin Tear (ED) Additional Instructions: Keep her wounds clean and dry. Follow-up with your doctors. Return anytime for any worsening symptoms. Disposition: 01 DISCHARGE HOME Condition: Stable Tiera Sheehan MD Apr 28, 2017 08:27
== END 2017-04-28 09:12 | disposition home or self-care (01) ==
LOC: NEPE 08:03
DX: S51.811A Laceration without foreign body of right forearm, initial encounter (principal); W19.XXXA Unspecified fall, initial encounter; I10 Essential (primary) hypertension; E78.00 Pure hypercholesterolemia, unspecified; E11.9 Type 2 diabetes mellitus without complications; F31.9 Bipolar disorder, unspecified; J44.9 Chronic obstructive pulmonary disease, unspecified; K21.9 Gastro-esophageal reflux disease without esophagitis; F17.210 Nicotine dependence, cigarettes, uncomplicated
CPT/HCPCS: 99282

== ENCOUNTER 2017-05-03 15:10 | Emergency (ER) | payer MEDICARE, MEDICAID ==
[2017-05-03 15:33] VITALS: BP 155/74; PULSE 100; RESP 16; TEMP 99.7; O2SAT 96
[2017-05-03] MEDS ORDERED: BACT800T5 PO (17:10)
[2017-05-03] MEDS ORDERED: MUPI2%T TOPICAL (17:10)
[2017-05-03 17:13] VITALS: TEMP 98
--- NOTE | 2017-05-03 17:14 | PD ---
HPI Chief Complaint: Skin Problem Time Seen by Provider: 16:29 Travel History International Travel<30 days: No Contact w/Intl Traveler<30days: No Traveled to known affect area: No History of Present Illness HPI 67-year-old female presents to the emergency room for evaluation of possible infection to right arm abrasions and skin tears. Patient states about 1 month ago she fell and hit her arm against a desk. The wounds were healing well until a few days ago when it began to appear infected. Since then she has had worsening pain especially over the most distal skin tear. Patient reports increased discharge and redness from the wounds. She has been keeping them clean and dry, washing them daily with hydrogen peroxide, and applying triple antibiotic ointment. She denies objective fever, chills, nausea, and vomiting. She does have history of diabetes. PFSH Past Medical History Arthritis: Yes (neck, back) Autoimmune Disease: No Bipolar Disorder: Yes Anxiety: Yes Depression: Yes Cancer: No Cardiovascular Problems: Yes High Cholesterol: Yes (on medication, unsure what type) Chemotherapy: No COPD: Yes Diabetes: Yes Patient Takes Glucophage: Yes Diminished Hearing: No Endocrine: Yes Gastrointestinal Disorders: Yes GERD: Yes Genitourinary: No Headaches: No Hypertension: Yes Immune Disorder: No Musculoskeletal: Yes Neurologic: No Psychiatric: Yes Reproductive: No Respiratory: Yes (COPD) Radiation Therapy: No Seizures: No Sickle Cell Disease: No Thyroid Disease: No Tetanus Vaccination: < 5 Years Past Surgical History Arteriovenous Shunt: No Section: Yes Gynecologic Surgery: Yes (two cesareans) Insulin Pump: No Joint Replacement: No Other Surgery: Yes (two cesareans) Social History Alcohol Use: No Tobacco Use: Yes ("about 4 cigarettes per day") Substance Use: No Allergies-Medications (Allergen,Severity, Reaction): Coded Allergies: penicillin G (Unverified Allergy, Unknown, 05/03/17) trifluoperazine (Verified Adverse Reaction, Unknown, 05/03/17) Reported Meds & Prescriptions Reported Meds & Active Scripts Active Bactrim DS (Sulfamethoxazole-Trimethoprim) 800-160 Mg Tab 1 Tab PO BID Bactroban Topical (Mupirocin) 22 Gm Cream 1 Applic TOPICAL BID Trazodone (Trazodone HCl) 50 Mg Tab 50 Mg PO HS Carbamazepine 100 Mg Chew 100 Mg PO BID Lisinopril 20 Mg Tab 20 Mg PO DAILY Pravastatin 20 Mg Tab 20 Mg PO DAILY Norvasc (Amlodipine Besylate) 10 Mg Tab 10 Mg PO DAILY 10 Days Glucophage (Metformin HCl) 500 Mg Tab 500 Mg PO BIDPC 30 Days Review of Systems Except as stated in HPI: all other systems reviewed are Neg Physical Exam Narrative GENERAL: Well-nourished, well-developed female no acute distress. Afebrile. Ambulatory. SKIN: Focused skin assessment warm/dry. Multiple superficial abrasions and skin tears to the right volar forearm. There is slight surrounding but very mild appearing erythema. No drainage. There is some impetiginization especially over the mid superficial abrasion. HEAD: Normocephalic. EYES: No scleral icterus. No injection or drainage. NECK: Supple, trachea midline. No JVD or lymphadenopathy. CARDIOVASCULAR: Regular rate and rhythm without murmurs, gallops, or rubs. RESPIRATORY: Breath sounds equal bilaterally. No accessory muscle use. MUSCULOSKELETAL: No cyanosis, or edema. Full range of motion of the right arm. 2+ radial pulse. Data Data Last Documented VS Vital Signs Date Time Temp Pulse Resp B/P (MAP) Pulse Ox O2 Delivery O2 Flow Rate FiO2 05/03/17 17:13 98.0 88 100 05/03/17 15:33 16 155/74 (101) Orders Orders Ketorolac Inj (Toradol Inj) (05/03/17 17:15) Ed Discharge Order (05/03/17 17:14) [facility] Medical Decision Making Medical Screen Exam Complete: Yes Emergency Medical Condition: Yes Medical Record Reviewed: Yes Differential Diagnosis Skin tear, infection, impetigo Narrative Course 67-year-old female presents to the emergency room for evaluation of possible infection of right arm skin tears. Patient states she got the skin tears 1 month ago after hitting her arm against a desk. According to EMR, she was here 5 days ago after falling on concrete. She also has history of bipolar disorder with psychotic features which I suspect is contributing to poor history. Physical exam reveals multiple superficial abrasions over the right dorsal forearm with slight surrounding erythema. There is some impetiginization. No significant evidence of infection. Patient's vital signs were checked when she got back to the room and completely unremarkable without intervention. She was requesting something for pain and given 30 mg IM Toradol. She will be discharged with prescriptions for Bactrim and Bactroban. Told to follow-up with a primary care physician or return for worsening symptoms. She understands and agrees to plan. Diagnosis Primary Impression: Infected skin tear Referrals: Primary Care Physician Additional Instructions: Rest and drink plenty of fluids. Bactrim as directed, until gone. Apply ointment to wounds twice daily. Follow up with a primary care physician. Return to emergency room for worsening symptoms, as discussed. Med/Other Pt SpecificInfo: Prescription(s) given Scripts Sulfamethoxazole-Trimethoprim (Bactrim DS) 800-160 Mg Tab 1 TAB PO BID for Infection, #14 TAB 0 Refills Prov: Ruma Herbert MD 05/03/17 Mupirocin Topical (Bactroban Topical) 22 Gm Cream 1 APPLIC TOPICAL BID for Mgmt Bacterial Infection, #1 TUBE 0 Refills Prov: Ruma Herbert MD 05/03/17 Disposition: 01 DISCHARGE HOME Condition: Stable Jenifer Hines May 03, 2017 17:14
[2017-05-03] MEDS ORDERED: KETOROLAC TROMETHAMINE 60 MG/2 ML (IM) VIAL IM ONE (17:15)
[2017-05-04] MEDS ORDERED: MACR100C2 PO (18:08)
== END 2017-05-03 17:24 | disposition home or self-care (01) ==
LOC: NED 15:10 → NEPK 17:24
DX: L08.9 Local infection of the skin and subcutaneous tissue, unspecified (principal); E11.9 Type 2 diabetes mellitus without complications; E78.00 Pure hypercholesterolemia, unspecified; I10 Essential (primary) hypertension; F31.9 Bipolar disorder, unspecified; F17.210 Nicotine dependence, cigarettes, uncomplicated; Z79.84 Long term (current) use of oral hypoglycemic drugs
CPT/HCPCS: 96372; 99284; J1885

== ENCOUNTER 2017-05-04 14:04 | Emergency (ER) | payer MEDICARE, MEDICAID ==
[~2017-05-04] VITALS: Ht 147.3 cm; Wt 40.0 kg
[~2017-05-04 14:04] MED LIST changes: +BACT800T5 PO; +MUPI2%T TOPICAL
[2017-05-04] MEDS ORDERED: IOHEXOL 350 MG/ML 10 ML VIAL (for RAD DIAG) IVCONTRAST ONE (14:05)
[2017-05-04 14:14] VITALS: BP 210/97; PULSE 94; RESP 20; TEMP 98.7; O2SAT 100
[2017-05-04 15:09] LABS: AUTOMATED NEUTROPHIL # 4.7 TH/MM3 (1.8-7.7); BASOPHIL # 0.1 TH/MM3 (0-0.2); BASOPHIL % 0.8 % (0.0-2.0); EOSINOPHIL # 0.3 TH/MM3 (0-0.4); EOSINOPHIL % 3.7 % (0.0-4.0); HEMATOCRIT 37.9 % (35.0-46.0); HEMOGLOBIN 13.2 GM/DL (11.6-15.3); LYMPH % 26.9 % (9.0-44.0); LYMPHOCYTE # 2.1 TH/MM3 (1.0-4.8); MEAN CELL VOLUME 92.3 FL (80.0-100.0); MEAN CORPUSCULAR HEMOGLOBIN 32.3 PG (27.0-34.0); MEAN PLATELET VOLUME 6.6 FL (7.0-11.0); MONO % 6.6 % (0.0-8.0); MONOCYTE # 0.5 TH/MM3 (0-0.9); PLATELET COUNT 322 TH/MM3 (150-450); RED CELL DISTRIBUTION WIDTH 14.6 % (11.6-17.2); WHITE BLOOD COUNT 7.7 TH/MM3 (4.0-11.0)
--- NOTE | 2017-05-04 15:10 | PD ---
HPI Chief Complaint: Complaint Time Seen by Provider: 14:49 Travel History International Travel<30 days: No Contact w/Intl Traveler<30days: No Traveled to known affect area: No History of Present Illness HPI 67-year-old female presents to the emergency department for evaluation of inability to urinate for approximately 1 day. Patient states that she has developed lower pelvic discomfort secondary to this. Patient says he was here yesterday for an infection of the arm secondary to a skin tear that occurred recently. Patient denies any other new medications. Says she does not have a history of this but requests a "catheter" to resolve this. She denies fever, chills, chest pain, shortness breath, back pain. Medical history significant for diabetes mellitus, hypertension, bipolar disorder. PFSH Past Medical History Arthritis: Yes (neck, back) Autoimmune Disease: No Bipolar Disorder: Yes Anxiety: Yes Depression: Yes Cancer: No Cardiovascular Problems: Yes High Cholesterol: Yes (on medication, unsure what type) Chemotherapy: No COPD: Yes Diabetes: Yes Patient Takes Glucophage: Yes Diminished Hearing: No Endocrine: Yes Gastrointestinal Disorders: Yes GERD: Yes Genitourinary: No Headaches: No Hypertension: Yes Immune Disorder: No Musculoskeletal: Yes Neurologic: No Psychiatric: Yes Reproductive: No Respiratory: Yes (COPD) Radiation Therapy: No Seizures: No Sickle Cell Disease: No Thyroid Disease: No Past Surgical History Arteriovenous Shunt: No Section: Yes Gynecologic Surgery: Yes (two cesareans) Insulin Pump: No Joint Replacement: No Other Surgery: Yes (two cesareans) Social History Alcohol Use: No Tobacco Use: Yes (1 PPD) Substance Use: No Allergies-Medications (Allergen,Severity, Reaction): Coded Allergies: penicillin G (Unverified Allergy, Unknown, 05/04/17) trifluoperazine (Verified Adverse Reaction, Unknown, 05/04/17) Reported Meds & Prescriptions Reported Meds & Active Scripts Active Macrobid (Nitrofurantoin Monoh/Nitrofur Macro) 100 Mg Cap 100 Mg PO BID 5 Days Bactrim DS (Sulfamethoxazole-Trimethoprim) 800-160 Mg Tab 1 Tab PO BID Bactroban Topical (Mupirocin) 22 Gm Cream 1 Applic TOPICAL BID Trazodone (Trazodone HCl) 50 Mg Tab 50 Mg PO HS Carbamazepine 100 Mg Chew 100 Mg PO BID Lisinopril 20 Mg Tab 20 Mg PO DAILY Pravastatin 20 Mg Tab 20 Mg PO DAILY Norvasc (Amlodipine Besylate) 10 Mg Tab 10 Mg PO DAILY 10 Days Glucophage (Metformin HCl) 500 Mg Tab 500 Mg PO BIDPC 30 Days Review of Systems Except as stated in HPI: all other systems reviewed are Neg Physical Exam Narrative GENERAL: WD, WN in mild distress. SKIN: Focused skin assessment warm/dry. HEAD: Atraumatic. Normocephalic. EYES: Pupils equal and round. No scleral icterus. No injection or drainage. ENT: No nasal bleeding or discharge. Mucous membranes pink and moist. NECK: Trachea midline. No JVD. CARDIOVASCULAR: Regular rate and rhythm. No murmur appreciated. RESPIRATORY: No accessory muscle use. Clear to auscultation. Breath sounds equal bilaterally. GASTROINTESTINAL: Abdomen soft, mildly diffusely tender. No masses or organomegaly. No CVA tenderness MUSCULOSKELETAL: No obvious deformities. No clubbing. No cyanosis. No edema. NEUROLOGICAL: Awake and alert. No obvious cranial nerve deficits. Motor grossly within normal limits. Normal speech. PSYCHIATRIC: Appropriate mood and affect; insight and judgment normal. Data Data Last Documented VS Vital Signs Date Time Temp Pulse Resp B/P (MAP) Pulse Ox O2 Delivery O2 Flow Rate FiO2 05/04/17 14:14 98.7 94 20 210/97 (134) 100 Orders Orders Electrocardiogram (05/04/17 14:17) Complete Blood Count With Diff (05/04/17 14:17) Comprehensive Metabolic Panel (05/04/17 14:17) Magnesium (Mg) (05/04/17 14:17) Ckmb (Isoenzyme) Profile (05/04/17 14:17) Troponin I (05/04/17 14:17) Act Partial Throm Time (Ptt) (05/04/17 14:17) Prothrombin Time / Inr (Pt) (05/04/17 14:17) Urinalysis - C+S If Indicated (05/04/17 14:17) Urinary Catheter Insert/Apply (05/04/17 15:03) Ct Abd/Pel W Iv Contrast(Rout) (05/04/17 ) Morphine Inj (Morphine Inj) (05/04/17 16:15) Lipase (05/04/17 16:03) Iohexol 350 Inj (Omnipaque 350 Inj) (05/04/17 14:05) Acetamin-Hydrocod 325-5 Mg ([place] 5-325 (05/04/17 18:15) Nitrofurantoin Monohyd Macrocr (Macrobid (05/04/17 18:15) Ed Discharge Order (05/04/17 19:20) Labs Laboratory Tests Test 05/04/17 14:55 05/04/17 15:40 White Blood Count 7.7 TH/MM3 Red Blood Count 4.10 MIL/MM3 Hemoglobin 13.2 GM/DL Hematocrit 37.9 % Mean Corpuscular Volume 92.3 FL Mean Corpuscular Hemoglobin 32.3 PG Mean Corpuscular Hemoglobin Concent 35.0 % Red Cell Distribution Width 14.6 % Platelet Count 322 TH/MM3 Mean Platelet Volume 6.6 FL Neutrophils (%) (Auto) 62.0 % Lymphocytes (%) (Auto) 26.9 % Monocytes (%) (Auto) 6.6 % Eosinophils (%) (Auto) 3.7 % Basophils (%) (Auto) 0.8 % Neutrophils # (Auto) 4.7 TH/MM3 Lymphocytes # (Auto) 2.1 TH/MM3 Monocytes # (Auto) 0.5 TH/MM3 Eosinophils # (Auto) 0.3 TH/MM3 Basophils # (Auto) 0.1 TH/MM3 CBC Comment DIFF FINAL Differential Comment Prothrombin Time 10.9 SEC Prothromb Time International Ratio 1.1 RATIO Activated Partial Thromboplast Time 26.5 SEC Blood Urea Nitrogen 10 MG/DL Creatinine 1.02 MG/DL Random Glucose 107 MG/DL Total Protein 7.8 GM/DL Albumin 3.6 GM/DL Calcium Level 8.9 MG/DL Magnesium Level 1.9 MG/DL Alkaline Phosphatase 108 U/L Aspartate Amino Transf (AST/SGOT) 16 U/L Alanine Aminotransferase (ALT/SGPT) 16 U/L Total Bilirubin 0.2 MG/DL Sodium Level 139 MEQ/L Potassium Level 3.3 MEQ/L Chloride Level 104 MEQ/L Carbon Dioxide Level 24.0 MEQ/L Anion Gap 11 MEQ/L Estimat Glomerular Filtration Rate 54 ML/MIN Total Creatine Kinase 62 U/L Troponin I LESS THAN 0.02 NG/ML Lipase 165 U/L Urine Color LIGHT-YELLOW Urine Turbidity CLEAR Urine pH 6.0 Urine Specific [place] 1.007 Urine Protein NEG mg/dL Urine Glucose (UA) NEG mg/dL Urine Ketones NEG mg/dL Urine Occult Blood NEG Urine Nitrite NEG Urine Bilirubin NEG Urine Urobilinogen LESS THAN 2.0 MG/DL Urine Leukocyte Esterase LARGE Urine RBC 2 /hpf Urine WBC 5 /hpf Urine Bacteria RARE /hpf Microscopic Urinalysis Comment CULT NOT INDICATED MDM Medical Decision Making Medical Screen Exam Complete: Yes Emergency Medical Condition: Yes Differential Diagnosis Urinary retention, urinary obstruction, abdominal pain, pancreatitis Narrative Course 67y female presents to the ED c/o urinary retention for 1 day. Says she has some diffuse abdominal pain as well. Denies nausea, vomiting, diarrhea. Vital sign stable. Labs are drawn. Carver catheter placed. Approximately 300 cc urine in carver bag initially. Patient states she still has abdominal pain. A total of 500 cc urine was removed via carver catheter over 1-1/[address] abdomen pelvis with IV contrast for further evaluation which was negative for acute process. Labs are stable. Urinalysis may be suggestive of a urinary tract infection. The Carver catheter was discontinued and the patient was able to urinate prior to discharge. Macrobid administered in the emergency department. Patient will be discharged with Macrobid. Advised follow-up with a primary care physician and consider gastroenterology for further evaluation of her abdominal pain. Patient states understanding will comply. Diagnosis Primary Impression: UTI (urinary tract infection) Qualified Codes: N30.00 - Acute cystitis without hematuria Referrals: Sap Crm Developer Additional Instructions: Follow-up the theatrical scenic designer as discussed. Take all medications as prescribed. You are being prescribed Macrobid she may have urinary tract infection which may be contributing to abdominal pain. Scripts Nitrofurantoin Monohydrate Macrocrystals (Macrobid) 100 Mg Cap 100 MG PO BID for Infection for 5 Days, #10 CAP 0 Refills Prov: Malik Pichardo MD 05/04/17 Disposition: 01 DISCHARGE HOME Condition: Stable Tiara Thibodeaux May 04, 2017 15:10
[2017-05-04 15:19] LABS: INTERNATIONAL NORMALIZED RATIO 1.1 RATIO; PROTHROMBIN TIME - PATIENT 10.9 SEC (9.8-11.6)
[2017-05-04 15:22] LABS: ALBUMIN 3.6 GM/DL (3.4-5.0); AST (GOT) 16 U/L (15-37); BLOOD UREA NITROGEN 10 MG/DL (7-18); CALCIUM 8.9 MG/DL (8.5-10.1); CHLORIDE 104 MEQ/L (98-107); CREATININE 1.02 MG/DL (0.50-1.00); GLOMERULAR FILTRATION RATE 54 ML/MIN (>89); GLUCOSE,RANDOM 107 MG/DL (74-106); MAGNESIUM 1.9 MG/DL (1.5-2.5); SODIUM (NA) 139 MEQ/L (136-145)
[2017-05-04 15:26] LABS: ALKALINE PHOSPHATASE 108 U/L (45-117); ALT (GPT) 16 U/L (10-53); TOTAL BILIRUBIN ADULT 0.2 MG/DL (0.2-1.0); TOTAL PROTEIN 7.8 GM/DL (6.4-8.2); TROPONIN I LESS THAN 0.02 NG/ML (0.02-0.05)
[2017-05-04] MEDS ORDERED: MORPHINE SULFATE 2 MG/ML INJ IV PUSH ONE (16:15)
[2017-05-04 16:16] LABS: BACTERIA, URINE RARE /hpf; BILIRUBIN, URINE NEG (NEG); BLOOD, URINE NEG (NEG); GLUCOSE,URINE NEG (NEG); KETONE, URINE NEG (NEG); NITRITE,URINE NEG (NEG); URINE COLOR LIGHT-YELLOW (YELLW/STRAW); URINE LEUKOCYTE ESTERASE LARGE (NEG)
--- NOTE | 2017-05-04 17:36 | RADRPT ---
EXAM DATE/TIME: 05/04/2017 17:03 [facility] COMPARISON: No previous studies available for comparison. INDICATIONS : Urinary retention lower abdomen pain IV CONTRAST: 80 cc Omnipaque 350 (iohexol) IV ORAL CONTRAST: No oral contrast ingested. RADIATION DOSE: 4.47 CTDIvol (mGy) MEDICAL HISTORY : Hypertension. Chronic obstructive pulmonary disease. Diabetes SURGICAL HISTORY : section. ENCOUNTER: Initial ACUITY: 1 day PAIN SCALE: 8/10 LOCATION: Abdomen TECHNIQUE: Volumetric scanning of the abdomen and pelvis was performed. Using automated exposure control and ad justment of the mA and/or kV according to patient size, radiation dose was kept as low as reasonably achievable to obtain optimal diagnostic quality images. DICOM format image data is available electro nically for review and comparison. FINDINGS: LOWER LUNGS: Fat-containing posterior medial left diaphragmatic hernia. LIVER: Tiny left lobe liver cysts. No suspicious mass. No biliary ductal dilatation. SPLEEN: Normal size without lesion. PANCREAS: Slight subjective prominence of the pancreatic duct. No evidence of pancreatic mass or inflammation KIDNEYS: Normal in size and shape. There is no mass, stone or hydronephrosis. ADRENAL GLANDS: Within normal limits. VASCULAR: Severe atherosclerotic vascular disease involving aorta and branch vessels no evidence of aneurysm BOWEL/MESENTERY: The stomach, small bowel, and colon demonstrate no acute abnormality. There is no free intraperitone al air or fluid. ABDOMINAL WALL: Within normal limits. RETROPERITONEUM: There is no lymphadenopathy. BLADDER: Decompressed with Mccurdy catheter REPRODUCTIVE: Within normal limits. INGUINAL: There is no lymphadenopathy or hernia. MUSCULOSKELETAL: Severe degenerative changes in the spine, particularly involving the posterior facet joints.. CONCLUSION: No acute CT findings in the abdomen or pelvis. Helio Horan MD on May 04, 2017 at 17:30 Board Certified Radiologist. This report was verified electronically.
[2017-05-04] MEDS ORDERED: MACR100C2 PO (18:08)
[2017-05-04] MEDS ORDERED: NITROFURANTOIN MONOHYD MACROCR 100 MG CAP PO ONE (18:15)
[2017-05-04] MEDS ORDERED: ACETAMINOPHEN/HYDROcodone 325 MG/5 MG TAB PO ONE (18:15)
--- NOTE | 2017-05-04 18:31 | PD ---
Data Data Last Documented VS Vital Signs Date Time Temp Pulse Resp B/P (MAP) Pulse Ox O2 Delivery O2 Flow Rate FiO2 05/04/17 14:14 98.7 94 20 210/97 (134) 100 Orders Orders Electrocardiogram (05/04/17 14:17) Complete Blood Count With Diff (05/04/17 14:17) Comprehensive Metabolic Panel (05/04/17 14:17) Magnesium (Mg) (05/04/17 14:17) Ckmb (Isoenzyme) Profile (05/04/17 14:17) Troponin I (05/04/17 14:17) Act Partial Throm Time (Ptt) (05/04/17 14:17) Prothrombin Time / Inr (Pt) (05/04/17 14:17) Urinalysis - C+S If Indicated (05/04/17 14:17) Urinary Catheter Insert/Apply (05/04/17 15:03) Ct Abd/Pel W Iv Contrast(Rout) (05/04/17 ) Morphine Inj (Morphine Inj) (05/04/17 16:15) Lipase (05/04/17 16:03) Iohexol 350 Inj (Omnipaque 350 Inj) (05/04/17 14:05) Acetamin-Hydrocod 325-5 Mg ([place] 5-325 (05/04/17 18:15) Nitrofurantoin Monohyd Macrocr (Macrobid (05/04/17 18:15) Ed Discharge Order (05/04/17 19:20) Labs Laboratory Tests Test 05/04/17 14:55 05/04/17 15:40 White Blood Count 7.7 TH/MM3 Red Blood Count 4.10 MIL/MM3 Hemoglobin 13.2 GM/DL Hematocrit 37.9 % Mean Corpuscular Volume 92.3 FL Mean Corpuscular Hemoglobin 32.3 PG Mean Corpuscular Hemoglobin Concent 35.0 % Red Cell Distribution Width 14.6 % Platelet Count 322 TH/MM3 Mean Platelet Volume 6.6 FL Neutrophils (%) (Auto) 62.0 % Lymphocytes (%) (Auto) 26.9 % Monocytes (%) (Auto) 6.6 % Eosinophils (%) (Auto) 3.7 % Basophils (%) (Auto) 0.8 % Neutrophils # (Auto) 4.7 TH/MM3 Lymphocytes # (Auto) 2.1 TH/MM3 Monocytes # (Auto) 0.5 TH/MM3 Eosinophils # (Auto) 0.3 TH/MM3 Basophils # (Auto) 0.1 TH/MM3 CBC Comment DIFF FINAL Differential Comment Prothrombin Time 10.9 SEC Prothromb Time International Ratio 1.1 RATIO Activated Partial Thromboplast Time 26.5 SEC Blood Urea Nitrogen 10 MG/DL Creatinine 1.02 MG/DL Random Glucose 107 MG/DL Total Protein 7.8 GM/DL Albumin 3.6 GM/DL Calcium Level 8.9 MG/DL Magnesium Level 1.9 MG/DL Alkaline Phosphatase 108 U/L Aspartate Amino Transf (AST/SGOT) 16 U/L Alanine Aminotransferase (ALT/SGPT) 16 U/L Total Bilirubin 0.2 MG/DL Sodium Level 139 MEQ/L Potassium Level 3.3 MEQ/L Chloride Level 104 MEQ/L Carbon Dioxide Level 24.0 MEQ/L Anion Gap 11 MEQ/L Estimat Glomerular Filtration Rate 54 ML/MIN Total Creatine Kinase 62 U/L Troponin I LESS THAN 0.02 NG/ML Lipase 165 U/L Urine Color LIGHT-YELLOW Urine Turbidity CLEAR Urine pH 6.0 Urine Specific [place] 1.007 Urine Protein NEG mg/dL Urine Glucose (UA) NEG mg/dL Urine Ketones NEG mg/dL Urine Occult Blood NEG Urine Nitrite NEG Urine Bilirubin NEG Urine Urobilinogen LESS THAN 2.0 MG/DL Urine Leukocyte Esterase LARGE Urine RBC 2 /hpf Urine WBC 5 /hpf Urine Bacteria RARE /hpf Microscopic Urinalysis Comment CULT NOT INDICATED MDM Supervised Visit with [facility]: Yes Narrative Course I, Dr. Pichardo, have reviewed the advance practice practitioner's documentation and am in agreement, met with the patient face to face, made the diagnosis, and the medical decision making was done by me. *My assessment and Findings: Patient 67-year-old female seen and examined by me , appears comfortable, abdomen benign. She was able to urinate after Mccurdy catheter was removed, she has no significant urinary retention. Will be placed on empiric antibiotics so the patient has only minimal evidence for urinary tract infection. Discussed need follow-up with a primary care physician and return to ED criteria. She is stable for discharge Diagnosis Primary Impression: UTI (urinary tract infection) Referrals: Electronic Equipment Set Up Operator Additional Instruction: Follow-up the engineer booster and exhauster as discussed. Take all medications as prescribed. You are being prescribed Macrobid she may have urinary tract infection which may be contributing to abdominal pain. Scripts Nitrofurantoin Monohydrate Macrocrystals (Macrobid) 100 Mg Cap 100 MG PO BID for Infection for 5 Days, #10 CAP 0 Refills Prov: Malik Pichardo MD 05/04/17 Disposition: 01 DISCHARGE HOME Condition: Stable Malik Pichardo MD May 04, 2017 18:31
--- NOTE | 2017-05-05 22:51 | EKG ---
Date Performed: 05/04/2017 Time Performed: 15:53:06 PTAGE: 67 years EKG: Sinus rhythm MINIMAL ST DEPRESSION BORDERLINE ECG PREVIOUS TRACING : 02/25/2017 13.18 Since the previous tracing, no significant change noted DOCTOR: Judy Blackburn Interpretating Date/Time 05/05/2017 22:51:07
== END 2017-05-04 19:36 | disposition home or self-care (01) ==
LOC: NED 14:04 → NEPC 19:36
DX: N39.0 Urinary tract infection, site not specified (principal); E11.9 Type 2 diabetes mellitus without complications; I10 Essential (primary) hypertension; F31.9 Bipolar disorder, unspecified; F41.9 Anxiety disorder, unspecified; J44.9 Chronic obstructive pulmonary disease, unspecified; K21.9 Gastro-esophageal reflux disease without esophagitis; M47.9 Spondylosis, unspecified; Z79.899 Other long term (current) drug therapy
CPT/HCPCS: 51702; 74177; 80053; 81001; 82550; 83690; 83735; 84484; 85025; 85610; 85730; 93005; 96374; 99283; J2270; Q9967

== ENCOUNTER 2017-05-09 10:43 | Emergency (ER) | payer MEDICARE, MEDICAID ==
[~2017-05-09] VITALS: Ht 147.3 cm; Wt 40.0 kg
[~2017-05-09 10:43] MED LIST changes: +MACR100C2 PO
[2017-05-09 10:49] VITALS: BP 143/61; PULSE 95; RESP 17; TEMP 98; O2SAT 99
[2017-05-09] MEDS ORDERED: SODIUM CHLORIDE 0.9% FLUSH 10 ML FLUSH IV FLUSH PRN (12:00)
[2017-05-09] MEDS ORDERED: PHENAZOPYRIDINE HCL 200 MG TAB PO ONE (12:00)
[2017-05-09 12:15] VITALS: RESP 16; O2SAT 99
--- NOTE | 2017-05-09 12:21 | PD ---
HPI . Bladder pain Chief Complaint: Complaint Time Seen by Provider: 11:50 Travel History International Travel<30 days: No Contact w/Intl Traveler<30days: No Traveled to known affect area: No History of Present Illness HPI Patient presents with a chief complaint of bladder pain. Onset was about a week ago. She was seen here and treated for a urinary tract infection with Macrobid. She states she has completed the Macrobid but continues to have bladder pain. She endorses dysuria and frequency of urination. She reports associated subjective fevers and chills. She reports one episode of nausea and vomiting last night. At triage, she rated her pain 5/10. She now rates it 10/ 10. PFSH Past Medical History Arthritis: Yes (neck, back) Autoimmune Disease: No Bipolar Disorder: Yes Anxiety: Yes Depression: Yes Cancer: No Cardiovascular Problems: Yes High Cholesterol: Yes Chemotherapy: No COPD: Yes Diabetes: Yes (TYPE 2) Patient Takes Glucophage: Yes Diminished Hearing: No Endocrine: Yes Gastrointestinal Disorders: Yes GERD: Yes Genitourinary: No Headaches: No Hypertension: Yes Immune Disorder: No Musculoskeletal: Yes Neurologic: No Psychiatric: Yes Reproductive: No Respiratory: Yes (COPD) Radiation Therapy: No Seizures: No Sickle Cell Disease: No Thyroid Disease: No Tetanus Vaccination: < 5 Years Influenza Vaccination: Yes ?: Not Past Surgical History Arteriovenous Shunt: No Section: Yes Gynecologic Surgery: Yes (two cesareans) Insulin Pump: No Joint Replacement: No Other Surgery: Yes (two cesareans) Social History Alcohol Use: No Tobacco Use: Yes (1 PPD) Substance Use: No Allergies-Medications (Allergen,Severity, Reaction): Coded Allergies: penicillin G (Unverified Allergy, Unknown, 05/09/17) trifluoperazine (Verified Adverse Reaction, Unknown, 05/09/17) Reported Meds & Prescriptions Reported Meds & Active Scripts Active Macrobid (Nitrofurantoin Monoh/Nitrofur Macro) 100 Mg Cap 100 Mg PO BID 5 Days Bactrim DS (Sulfamethoxazole-Trimethoprim) 800-160 Mg Tab 1 Tab PO BID Bactroban Topical (Mupirocin) 22 Gm Cream 1 Applic TOPICAL BID Trazodone (Trazodone HCl) 50 Mg Tab 50 Mg PO HS Carbamazepine 100 Mg Chew 100 Mg PO BID Lisinopril 20 Mg Tab 20 Mg PO DAILY Pravastatin 20 Mg Tab 20 Mg PO DAILY Norvasc (Amlodipine Besylate) 10 Mg Tab 10 Mg PO DAILY 10 Days Glucophage (Metformin HCl) 500 Mg Tab 500 Mg PO BIDPC 30 Days Review of Systems Except as stated in HPI: all other systems reviewed are Neg General / Constitutional: Positive: Fever, Chills Gastrointestinal: Positive: Nausea, Vomiting, Abdominal Pain Genitourinary: Positive: Frequency, Dysuria, Pelvic Pain Physical Exam Narrative GENERAL: Awake and alert and in no acute distress. SKIN: Warm and dry. HEAD: Normocephalic/atraumatic. EYES: Pupils are equal. Extraocular movements are intact. NECK: Normal range of motion. CARDIOVASCULAR: Regular rate and rhythm. RESPIRATORY: Nonlabored respirations. ABDOMEN: Soft with suprapubic tenderness. No guarding or rebound. MUSCULOSKELETAL: Atraumatic. NEUROLOGICAL: Nonfocal. PSYCHIATRIC: Appropriate mood and affect. Data Data Last Documented VS Vital Signs Date Time Temp Pulse Resp B/P (MAP) Pulse Ox O2 Delivery O2 Flow Rate FiO2 05/09/17 10:49 98.0 95 17 143/61 (88) 99 Orders Orders Basic Metabolic Panel (Bmp) (05/09/17 11:57) Complete Blood Count With Diff (05/09/17 11:57) Lactic Acid (05/09/17 11:57) Urinalysis - C+S If Indicated (05/09/17 11:57) Iv Access Insert/Monitor (05/09/17 11:57) Ecg Monitoring (05/09/17 11:57) Oximetry (05/09/17 11:57) Sodium Chloride 0.9% Flush (Ns Flush) (05/09/17 12:00) Phenazopyridine (Pyridium) (05/09/17 12:00) Labs Laboratory Tests Test 05/09/17 12:15 White Blood Count 8.0 TH/MM3 Red Blood Count 4.00 MIL/MM3 Hemoglobin 12.8 GM/DL Hematocrit 37.1 % Mean Corpuscular Volume 92.8 FL Mean Corpuscular Hemoglobin 32.0 PG Mean Corpuscular Hemoglobin Concent 34.4 % Red Cell Distribution Width 14.2 % Platelet Count 327 TH/MM3 Mean Platelet Volume 6.5 FL Neutrophils (%) (Auto) 63.4 % Lymphocytes (%) (Auto) 28.9 % Monocytes (%) (Auto) 5.7 % Eosinophils (%) (Auto) 1.2 % Basophils (%) (Auto) 0.8 % Neutrophils # (Auto) 5.1 TH/MM3 Lymphocytes # (Auto) 2.3 TH/MM3 Monocytes # (Auto) 0.5 TH/MM3 Eosinophils # (Auto) 0.1 TH/MM3 Basophils # (Auto) 0.1 TH/MM3 CBC Comment DIFF FINAL Differential Comment Urine Color YELLOW Urine Turbidity CLEAR Urine pH 5.5 Urine Specific [place] 1.007 Urine Protein NEG mg/dL Urine Glucose (UA) NEG mg/dL Urine Ketones NEG mg/dL Urine Occult Blood NEG Urine Nitrite NEG Urine Bilirubin NEG Urine Urobilinogen LESS THAN 2.0 MG/DL Urine Leukocyte Esterase NEG Urine WBC LESS THAN 1 /hpf Urine Hyaline Casts 2 /lpf Microscopic Urinalysis Comment CULT NOT INDICATED Blood Urea Nitrogen 16 MG/DL Creatinine 1.21 MG/DL Random Glucose 103 MG/DL Calcium Level 9.1 MG/DL Sodium Level 132 MEQ/L Potassium Level 3.6 MEQ/L Chloride Level 100 MEQ/L Carbon Dioxide Level 22.3 MEQ/L Anion Gap 10 MEQ/L Estimat Glomerular Filtration Rate 44 ML/MIN Lactic Acid Level 2.8 mmol/L MDM Medical Decision Making Medical Screen Exam Complete: Yes Emergency Medical Condition: Yes Medical Record Reviewed: Yes (Patient was seen here on 05/04. She had a CT scan of her abdomen and pelvis which was negative. Her CBC and comprehensive medical panel were normal. Her UA showed large leukocyte esterase and rare bacteria. Culture was not indicated and was subsequently not done. She was discharged with a prescription for Macrobid.) Differential Diagnosis Differential diagnosis of pelvic pain includes but is not limited to UTI, PID, ectopic , spontaneous AB, constipation, viral illness Narrative Course This patient presents with persistent pelvic pain despite treatment for a UTI with Macrobid. Onset of symptoms was about a week ago. I have reviewed her record from her visit here on 05/04. The only abnormality on her workup was large leukocyte esterase and rare bacteria in her urine. I have ordered a repeat CBC, BMP, lactic acid and urinalysis. I have ordered Pyridium in the interim for her bladder pain. I do not plan to rescan her belly. The nurse has informed me that the patient initially refused laboratory evaluation. She also refused Pyridium. She is requesting pain medication. The nurse has subsequently informed the patient that I am unwilling to give her pain medication without a laboratory evaluation. CBC & BMP Diagram 05/09/17 12:15 Calcium Level 9.1 UA is neg. No etiology for this patient's pelvic pain has been found. She had a CT done on 05/04 which was negative. I will discharge her to home with instructions to follow-up with her primary care provider for further evaluation and treatment if her symptoms persist. The history, exam, diagnostic testing, and current condition do not suggest any significant pathology to warrant further testing, continued ED treatment, admission, or surgical evaluation at this point. No EMC was found. The patient 's condition is stable and appropriate for discharge. Diagnosis Primary Impression: Pelvic pain in female Patient Instructions: General Instructions, Pelvic Pain in Women (DC) Med/Other Pt SpecificInfo: Prescription(s) given Scripts Phenazopyridine HCl (Pyridium) 200 Mg Tablet 1 TAB PO Q6HR for bladder pain, #10 TAB Prov: Ruma Herbert MD 05/09/17 Disposition: 01 DISCHARGE HOME Condition: Stable Ruma Herbert MD May 09, 2017 12:21
[2017-05-09 12:33] LABS: AUTOMATED NEUTROPHIL # 5.1 TH/MM3 (1.8-7.7); BASOPHIL # 0.1 TH/MM3 (0-0.2); BASOPHIL % 0.8 % (0.0-2.0); EOSINOPHIL # 0.1 TH/MM3 (0-0.4); EOSINOPHIL % 1.2 % (0.0-4.0); HEMATOCRIT 37.1 % (35.0-46.0); HEMOGLOBIN 12.8 GM/DL (11.6-15.3); LYMPH % 28.9 % (9.0-44.0); LYMPHOCYTE # 2.3 TH/MM3 (1.0-4.8); MEAN CELL VOLUME 92.8 FL (80.0-100.0); MEAN CORPUSCULAR HGB CONC 34.4 % (32.0-36.0); MEAN PLATELET VOLUME 6.5 FL (7.0-11.0); MONO % 5.7 % (0.0-8.0); MONOCYTE # 0.5 TH/MM3 (0-0.9); NEUT % 63.4 % (16.0-70.0); PLATELET COUNT 327 TH/MM3 (150-450); RED CELL DISTRIBUTION WIDTH 14.2 % (11.6-17.2)
[2017-05-09 12:42] LABS: BILIRUBIN, URINE NEG (NEG); BLOOD, URINE NEG (NEG); GLUCOSE,URINE NEG (NEG); HYALINE CAST, URINE 2 /lpf (RARE); KETONE, URINE NEG (NEG); NITRITE,URINE NEG (NEG); PH, URINE 5.5 (5.0-8.5); URINE COLOR YELLOW (YELLW/STRAW); URINE LEUKOCYTE ESTERASE NEG (NEG)
[2017-05-09 12:57] LABS: BICARBONATE 22.3 MEQ/L (21.0-32.0); CALCIUM 9.1 MG/DL (8.5-10.1); CREATININE 1.21 MG/DL (0.50-1.00)
[2017-05-09] MEDS ORDERED: PHEN-510 PO (13:12)
== END 2017-05-09 13:22 | disposition home or self-care (01) ==
LOC: NEPD 10:43
DX: R10.2 Pelvic and perineal pain (principal); R11.2 Nausea with vomiting, unspecified; R30.0 Dysuria; R35.0 Frequency of micturition; E11.9 Type 2 diabetes mellitus without complications; J44.9 Chronic obstructive pulmonary disease, unspecified; I10 Essential (primary) hypertension; F31.9 Bipolar disorder, unspecified; F41.9 Anxiety disorder, unspecified
CPT/HCPCS: 80048; 81001; 83605; 85025; 99283

== ENCOUNTER 2017-06-19 21:01 | Emergency (ER) | payer MEDICAID, MEDICARE ==
[~2017-06-19] VITALS: Ht 147.3 cm; Wt 42.5 kg
[~2017-06-19 21:01] MED LIST changes: +PHEN-510 PO
[2017-06-19 21:06] VITALS: BP 160/78; PULSE 84; RESP 16; TEMP 98.3; O2SAT 96
[2017-06-19] MEDS ORDERED: METF500T PO (21:11)
[2017-06-19 21:57] LABS: BILIRUBIN, URINE NEG (NEG); BLOOD, URINE NEG (NEG); GLUCOSE,URINE NEG (NEG); KETONE, URINE NEG (NEG); NITRITE,URINE NEG (NEG); PH, URINE 5.5 (5.0-8.5); URINE COLOR YELLOW (YELLW/STRAW); URINE LEUKOCYTE ESTERASE NEG (NEG)
[2017-06-19] MEDS ORDERED: PHENAZOPYRIDINE HCL 200 MG TAB PO ONE (22:00)
[2017-06-19] MEDS ORDERED: ACETAMINOPHEN 500 MG CPLT PO ONE (22:00)
[2017-06-19 22:11] LABS: MUCUS URINE FEW /lpf (OCC); SQUAMOUS EPITHELIAL CELL URINE 0-5 /hpf (0-5)
[2017-06-19] MEDS ORDERED: PHEN0.4T PO (22:26)
--- NOTE | 2017-06-19 22:27 | PD ---
HPI Chief Complaint: Complaint Time Seen by Provider: 21:12 Travel History International Travel<30 days: No Contact w/Intl Traveler<30days: No Traveled to known affect area: No History of Present Illness HPI This is a 67-year-old female who presents to the emergency department with lower abdominal discomfort that has been going on for 1 week, intermittent, moderate severity associated with difficulty urinating. She says she has not been able to urinate all day and she is getting increasingly more uncomfortable in her lower abdomen. She says this is happened multiple times over the past several months. She has been told she has urinary tract infections. She has completed 2 courses of antibiotics the most recent being last week. She has been following with a urologist who did a urethral dilation 1 week ago. She denies any nausea or vomiting. PFSH Past Medical History Arthritis: Yes (neck, back) Autoimmune Disease: No Bipolar Disorder: Yes Anxiety: Yes Depression: Yes Cancer: No Cardiovascular Problems: Yes High Cholesterol: Yes Chemotherapy: No COPD: Yes Diabetes: Yes (TYPE 2) Patient Takes Glucophage: Yes (Metformin 06/18/17 at 0800) Diminished Hearing: No Endocrine: Yes Gastrointestinal Disorders: Yes GERD: Yes Genitourinary: No Headaches: No Hypertension: Yes Immune Disorder: No Musculoskeletal: Yes Neurologic: No Psychiatric: Yes Reproductive: No Respiratory: Yes (COPD) Radiation Therapy: No Seizures: No Sickle Cell Disease: No Thyroid Disease: No ?: Not Past Surgical History Arteriovenous Shunt: No Section: Yes Gynecologic Surgery: Yes (two cesareans) Insulin Pump: No Joint Replacement: No Other Surgery: Yes (two cesareans) Social History Alcohol Use: No Tobacco Use: Yes (1 PPD) Substance Use: No Allergies-Medications (Allergen,Severity, Reaction): Coded Allergies: penicillin G (Verified Allergy, Unknown, 06/19/17) trifluoperazine (Verified Adverse Reaction, Unknown, 06/19/17) Reported Meds & Prescriptions Reported Meds & Active Scripts Active Trazodone (Trazodone HCl) 50 Mg Tab 50 Mg PO HS Carbamazepine 100 Mg Chew 100 Mg PO BID Pravastatin 20 Mg Tab 20 Mg PO DAILY Norvasc (Amlodipine Besylate) 10 Mg Tab 10 Mg PO DAILY 10 Days Reported Metformin (Metformin HCl) 500 Mg Tab 500 Mg PO DAILY With a meal Review of Systems Except as stated in HPI: all other systems reviewed are Neg Physical Exam Narrative GENERAL: Thin, in no acute distress SKIN: Focused skin assessment warm and dry. HEAD: Atraumatic. Normocephalic. EYES: Pupils equal and round. No injection or drainage. ENT: Moist mucous membranes NECK: Trachea midline. CARDIOVASCULAR: Regular rate and rhythm. No murmur appreciated. RESPIRATORY: Clear to auscultation. Breath sounds equal bilaterally. GASTROINTESTINAL: Abdomen soft, non-tender, nondistended. Tender to palpation in the lower abdomen with no rebound or guarding. MUSCULOSKELETAL: No obvious deformities. NEUROLOGICAL: Awake and alert. No obvious cranial nerve deficits. Moving all extremities. PSYCHIATRIC: Appropriate mood and affect; insight and judgment normal. Data Data Last Documented VS Vital Signs Date Time Temp Pulse Resp B/P (MAP) Pulse Ox O2 Delivery O2 Flow Rate FiO2 06/19/17 21:14 16 06/19/17 21:06 98.3 84 160/78 (105) 96 Orders Orders Urinalysis - C+S If Indicated (06/19/17 21:20) Urinary Catheter Insert/Apply (06/19/17 21:20) Acetaminophen (Tylenol) (06/19/17 22:00) Phenazopyridine (Pyridium) (06/19/17 22:00) Labs Laboratory Tests Test 06/19/17 21:39 Urine Color YELLOW Urine Turbidity CLEAR Urine pH 5.5 Urine Specific [place] GREATER/EQUAL 1.030 Urine Protein NEG mg/dL Urine Glucose (UA) NEG mg/dL Urine Ketones NEG mg/dL Urine Occult Blood NEG Urine Nitrite NEG Urine Bilirubin NEG Urine Urobilinogen 0.2 MG/DL Urine Leukocyte Esterase NEG Urine Squamous Epithelial Cells 0-5 /hpf Urine Mucus FEW /lpf Microscopic Urinalysis Comment CATH-CULT NOT IND MDM Medical Decision Making Medical Screen Exam Complete: Yes Emergency Medical Condition: Yes Differential Diagnosis Urinary tract infection, acute urinary retention, urethral stricture, interstitial cystitis Narrative Course This is a 67-year-old female who presents for the third time to our emergency department with lower abdominal discomfort and urinary complaints. She has had labs twice in the setting of this and had a CT abdomen pelvis which was reassuring. She says she is also been a [place] [facility] several times for the same problem. She and says she has not urinated all day and she felt like she was in retention. A Mccurdy catheter was placed and she put out 150 cc of clear urine which was not dark. Urine has a specific gravity of 1.03 and no ketones to suggest dehydration or protein, blood or casts to suggest kidney injury. I do not think she requires any additional evaluation. I suspect there may be an underlying psychiatric component to her presentation or she may suffer from interstitial cystitis. She will be discharged on Pyridium and was asked to follow-up with her urologist. Diagnosis Primary Impression: Chronic pelvic pain in female Patient Instructions: General Instructions Additional Instructions: If you develop severe or worsening abdominal pain, fever>100.4, persistent vomiting or inability to eat or drink return to the emergency department immediately. Follow up with your urologist. Discuss with him the possibility that you may have interstitial cystitis. Med/Other Pt SpecificInfo: Prescription(s) given Scripts Phenazopyridine (Pyridium) 100 Mg Tab 100 MG PO Q8H Y for DYSURIA, #6 TAB 0 Refills Prov: Cecilia Patel MD 06/19/17 Disposition: 01 DISCHARGE HOME Condition: Stable Cecilia Patel MD June 19, 2017 22:27
[2017-06-19 23:10] VITALS: BP 130/71
== END 2017-06-19 23:11 | disposition home or self-care (01) ==
LOC: PHED 21:01
DX: R10.2 Pelvic and perineal pain (principal); G89.29 Other chronic pain; E11.9 Type 2 diabetes mellitus without complications; E78.00 Pure hypercholesterolemia, unspecified; F31.9 Bipolar disorder, unspecified; F41.9 Anxiety disorder, unspecified; I10 Essential (primary) hypertension; K21.9 Gastro-esophageal reflux disease without esophagitis; F17.200 Nicotine dependence, unspecified, uncomplicated
CPT/HCPCS: 51702; 81001

== ENCOUNTER 2017-06-22 15:45 | Emergency (ER) | payer MEDICARE ==
[~2017-06-22 15:45] MED LIST changes: -BACT800T5 PO; -LISI-515 PO; -MACR100C2 PO; -METF500 PO; +METF500T PO; -MUPI2%T TOPICAL; -PHEN-510 PO; +PHEN0.4T PO
[2017-06-22 16:02] VITALS: BP 122/67; PULSE 86; RESP 16; TEMP 98.2; O2SAT 95
--- NOTE | 2017-06-22 17:47 | PD ---
HPI Chief Complaint: Complaint Time Seen by Provider: 17:17 Travel History International Travel<30 days: No Contact w/Intl Traveler<30days: No Traveled to known affect area: No History of Present Illness HPI This 67-year-old female is complaining of inability to void. This happened to her several times in the past. SHe has been seen here for the possibility of interstitial cystitis has been raised. She says she has an appointment on with the urologist. She says that she last urinated this morning. She feels like her bladder is full and she is unable to urinate. SHe has not had fever or chills. PFSH Past Medical History Arthritis: Yes (neck, back) Autoimmune Disease: No Bipolar Disorder: Yes Anxiety: Yes Depression: Yes Cancer: No Cardiovascular Problems: Yes High Cholesterol: Yes Chemotherapy: No COPD: Yes Diabetes: Yes (METFORMIN) Patient Takes Glucophage: Yes Diminished Hearing: No Endocrine: Yes Gastrointestinal Disorders: Yes GERD: Yes Genitourinary: No Headaches: No Hypertension: Yes Immune Disorder: No Musculoskeletal: Yes Neurologic: No Psychiatric: Yes Reproductive: No Respiratory: Yes (COPD) Radiation Therapy: No Seizures: No Sickle Cell Disease: No Thyroid Disease: No Tetanus Vaccination: < 5 Years Influenza Vaccination: Yes Past Surgical History Arteriovenous Shunt: No Section: Yes Gynecologic Surgery: Yes (two cesareans) Insulin Pump: No Joint Replacement: No Other Surgery: Yes (two cesareans) Social History Alcohol Use: No Tobacco Use: Yes (1 PPD) Substance Use: No Allergies-Medications (Allergen,Severity, Reaction): Coded Allergies: penicillin G (Verified Allergy, Unknown, 06/22/17) trifluoperazine (Verified Adverse Reaction, Unknown, 06/22/17) Reported Meds & Prescriptions Reported Meds & Active Scripts Active Trazodone (Trazodone HCl) 50 Mg Tab 50 Mg PO HS Carbamazepine 100 Mg Chew 100 Mg PO BID Pravastatin 20 Mg Tab 20 Mg PO DAILY Norvasc (Amlodipine Besylate) 10 Mg Tab 10 Mg PO DAILY 10 Days Reported Metformin (Metformin HCl) 500 Mg Tab 500 Mg PO DAILY With a meal Review of Systems General / Constitutional: No: Fever, Chills HENT: No: Headaches Cardiovascular: No: Chest Pain or Discomfort, Palpitations Respiratory: No: Cough Gastrointestinal: No: Vomiting, Diarrhea Genitourinary: Positive: Decreased Urinary Output Skin: No Rash Physical Exam Narrative GENERAL: Well-developed female SKIN: Focused skin assessment warm/dry. HEAD: Atraumatic. Normocephalic. EYES: Pupils equal and round. No scleral icterus. No injection or drainage. ENT: No nasal bleeding or discharge. Mucous membranes pink and moist. NECK: Trachea midline. No JVD. CARDIOVASCULAR: Regular rate and rhythm. No murmur appreciated. RESPIRATORY: No accessory muscle use. Clear to auscultation. Breath sounds equal bilaterally. GASTROINTESTINAL: Abdomen soft, non-tender, nondistended. Hepatic and splenic margins not palpable. MUSCULOSKELETAL: No obvious deformities. No clubbing. No cyanosis. No edema. NEUROLOGICAL: Awake and alert. No obvious cranial nerve deficits. Motor grossly within normal limits. Normal speech. PSYCHIATRIC: Appropriate mood and affect; insight and judgment normal. Data Data Last Documented VS Vital Signs Date Time Temp Pulse Resp B/P (MAP) Pulse Ox O2 Delivery O2 Flow Rate FiO2 06/22/17 16:02 98.2 86 16 122/67 (85) 95 Orders Orders Urinalysis - C+S If Indicated (06/22/17 17:42) Urinary Catheter Insert/Apply (06/22/17 17:42) Urinary Catheter - Remove (06/22/17 18:20) Labs Laboratory Tests Test 06/22/17 17:45 Urine Collection Type CLEAN CATCH Urine Color YELLOW Urine Turbidity CLEAR Urine pH 5.5 Urine Specific [place] 1.015 Urine Protein NEG mg/dL Urine Glucose (UA) NEG mg/dL Urine Ketones NEG mg/dL Urine Occult Blood NEG Urine Nitrite NEG Urine Bilirubin NEG Urine Urobilinogen 0.2 MG/DL Urine Leukocyte Esterase NEG Urine RBC 0-3 /hpf Urine WBC 0-2 /hpf Microscopic Urinalysis Comment CULT NOT INDICATED Urine Collection Time 17:45 [facility] Medical Decision Making Medical Screen Exam Complete: Yes Emergency Medical Condition: Yes Medical Record Reviewed: Yes Differential Diagnosis Differential includes urinary retention, interstitial cystitis Narrative Course Mccurdy catheter was inserted and only 2 or 300 cc of urine was present. The urine is clear. She may well have interstitial cystitis. She has an appointment with urology. She will be released. Offered to leave the catheter in place but she declines Diagnosis Primary Impression: Possible interstitial cystitis Disposition: DISCHARGE HOME Condition: Stable Ramon Nicole MD June 22, 2017 17:47
[2017-06-22 17:53] LABS: BILIRUBIN, URINE NEG (NEG); BLOOD, URINE NEG (NEG); GLUCOSE,URINE NEG (NEG); KETONE, URINE NEG (NEG); NITRITE,URINE NEG (NEG); PH, URINE 5.5 (5.0-8.5); URINE COLOR YELLOW (YELLW/STRAW); URINE LEUKOCYTE ESTERASE NEG (NEG)
[2017-06-22 18:08] LABS: RBC, URINE 0-3 /hpf (0-3); WBC, URINE 0-2 /hpf (0-5)
[2017-06-22 18:25] VITALS: BP 127/61; PULSE 75; RESP 16; O2SAT 96
[2017-06-22] MEDS ORDERED: ACETAMINOPHEN 325 MG TAB PO ONE (18:45)
== END 2017-06-22 18:53 | disposition home or self-care (01) ==
LOC: PHED 15:45
DX: R33.9 Retention of urine, unspecified (principal); F31.9 Bipolar disorder, unspecified; F41.9 Anxiety disorder, unspecified; E78.00 Pure hypercholesterolemia, unspecified; I10 Essential (primary) hypertension; E11.9 Type 2 diabetes mellitus without complications; J44.9 Chronic obstructive pulmonary disease, unspecified; K21.9 Gastro-esophageal reflux disease without esophagitis; F17.200 Nicotine dependence, unspecified, uncomplicated
CPT/HCPCS: 51702; 81001

== ENCOUNTER 2017-06-26 10:17 | Emergency (ER) | payer MEDICARE, MEDICAID ==
[~2017-06-26] VITALS: Ht 147.3 cm; Wt 38.0 kg
[~2017-06-26 10:17] MED LIST changes: -PHEN0.4T PO
[2017-06-26 10:21] VITALS: BP 126/63; PULSE 101; RESP 16; TEMP 97.8; O2SAT 97
[2017-06-26] MEDS ORDERED: ONDANSETRON ODT 4 MG TAB PO ONE (11:00)
[2017-06-26 11:16] LABS: AUTOMATED NEUTROPHIL # 4.4 TH/MM3 (1.8-7.7); BASOPHIL # 0.1 TH/MM3 (0-0.2); BASOPHIL % 1.7 % (0.0-2.0); EOSINOPHIL # 0.1 TH/MM3 (0-0.4); EOSINOPHIL % 1.2 % (0.0-4.0); HEMOGLOBIN 13.7 GM/DL (11.6-15.3); LYMPH % 27.7 % (9.0-44.0); MEAN CELL VOLUME 94.7 FL (80.0-100.0); MEAN CORPUSCULAR HEMOGLOBIN 32.5 PG (27.0-34.0); MEAN CORPUSCULAR HGB CONC 34.3 % (32.0-36.0); MEAN PLATELET VOLUME 7.1 FL (7.0-11.0); MONO % 6.6 % (0.0-8.0); MONOCYTE # 0.5 TH/MM3 (0-0.9); NEUT % 62.8 % (16.0-70.0); PLATELET COUNT 334 TH/MM3 (150-450); RED BLOOD COUNT 4.22 MIL/MM3 (4.00-5.30); RED CELL DISTRIBUTION WIDTH 12.7 % (11.6-17.2); WHITE BLOOD COUNT 7.1 TH/MM3 (4.0-11.0)
[2017-06-26 11:21] LABS: BILIRUBIN, URINE NEG (NEG); BLOOD, URINE NEG (NEG); GLUCOSE,URINE NEG (NEG); KETONE, URINE NEG (NEG); NITRITE,URINE NEG (NEG); URINE COLOR YELLOW (YELLW/STRAW); URINE LEUKOCYTE ESTERASE NEG (NEG)
[2017-06-26 11:24] LABS: CHLORIDE 97 MEQ/L (98-107); SODIUM (NA) 135 MEQ/L (136-145)
[2017-06-26 11:26] LABS: BACTERIA, URINE OCC /hpf; SQUAMOUS EPITHELIAL CELL URINE 0-5 /hpf (0-5)
[2017-06-26 11:27] LABS: ALBUMIN 3.9 GM/DL (3.4-5.0); BICARBONATE 31.8 MEQ/L (21.0-32.0); CALCIUM 9.5 MG/DL (8.5-10.1)
[2017-06-26 11:28] LABS: BLOOD UREA NITROGEN 12 MG/DL (7-18); GLUCOSE,RANDOM 129 MG/DL (74-106)
[2017-06-26 11:30] LABS: ALT (GPT) 15 U/L (10-53)
[2017-06-26 11:31] LABS: AST (GOT) 13 U/L (15-37); CREATININE 0.75 MG/DL (0.50-1.00); GLOMERULAR FILTRATION RATE 77 ML/MIN (>89)
[2017-06-26 11:32] LABS: TOTAL BILIRUBIN ADULT 0.4 MG/DL (0.2-1.0); TOTAL PROTEIN 7.8 GM/DL (6.4-8.2)
[2017-06-26 11:33] LABS: ALKALINE PHOSPHATASE 84 U/L (45-117)
[2017-06-26 11:50] VITALS: BP 102/54; PULSE 77; RESP 18; O2SAT 97
--- NOTE | 2017-06-26 12:25 | PD ---
HPI Chief Complaint: GI Complaint Time Seen by Provider: 10:39 Travel History International Travel<30 days: No Contact w/Intl Traveler<30days: No Traveled to known affect area: No History of Present Illness HPI Patient is a 67-year-old female who comes in with multiple nonspecific complaints. She has been here several times recently for similar issues. She says that she has a salty taste in her mouth. She says that she cannot eat, but when asked if she is nauseous, she says no. She denies any vomiting. She says she has "bladder pain" for which she has been here before several times in the past few weeks, urinalysis is been negative. She says she is unable to eat or drink anything, but then says that she drank tea today and yesterday and had 2 ensures yesterday. Patient has not been taking any of her medications. She says she needs to be admitted, and demands admission. However, she is not really able to describe any specific issues at this time. She says her symptoms have been going on for several months. PFSH Past Medical History Arthritis: Yes (neck, back) Autoimmune Disease: No Bipolar Disorder: Yes Anxiety: Yes Depression: Yes Cancer: No Cardiovascular Problems: Yes High Cholesterol: Yes Chemotherapy: No COPD: Yes Diabetes: Yes (METFORMIN) Patient Takes Glucophage: Yes Diminished Hearing: No Endocrine: Yes Gastrointestinal Disorders: Yes GERD: Yes Genitourinary: No Headaches: No Heparin Induced Thrombocytopen: No Hypertension: Yes Immune Disorder: No Implanted Vascular Access Dvce: No Musculoskeletal: Yes Neurologic: No Psychiatric: Yes Reproductive: No Respiratory: Yes (COPD) Radiation Therapy: No Seizures: No Sickle Cell Disease: No Thyroid Disease: No Past Surgical History Arteriovenous Shunt: No Section: Yes Gynecologic Surgery: Yes (two cesareans) Insulin Pump: No Joint Replacement: No Other Surgery: Yes (two cesareans) Social History Alcohol Use: No Tobacco Use: Yes (1 PPD) Substance Use: No Allergies-Medications (Allergen,Severity, Reaction): Coded Allergies: penicillin G (Verified Allergy, Unknown, 06/26/17) trifluoperazine (Verified Adverse Reaction, Unknown, 06/26/17) Reported Meds & Prescriptions Reported Meds & Active Scripts Active Trazodone (Trazodone HCl) 50 Mg Tab 50 Mg PO HS Carbamazepine 100 Mg Chew 100 Mg PO BID Pravastatin 20 Mg Tab 20 Mg PO DAILY Norvasc (Amlodipine Besylate) 10 Mg Tab 10 Mg PO DAILY 10 Days Reported Metformin (Metformin HCl) 500 Mg Tab 500 Mg PO DAILY With a meal Review of Systems Except as stated in HPI: all other systems reviewed are Neg General / Constitutional: No: Fever HENT: No: Headaches, Lightheadedness Cardiovascular: No: Chest Pain or Discomfort Respiratory: No: Shortness of Breath Gastrointestinal: Positive: Abdominal Pain Musculoskeletal: No: Myalgias, Edema Skin: No Rash, No Change in Pigmentation Neurologic: No: Weakness, Dizziness Physical Exam Narrative GENERAL: Awake and alert, no acute distress. SKIN: Focused skin assessment warm/dry. No wounds or signs of infection. HEAD: Atraumatic. Normocephalic. EYES: Pupils equal and round. No scleral icterus. ENT: Mucous membranes pink and moist. NECK: Trachea midline. No JVD. CARDIOVASCULAR: Regular rate and rhythm. No murmur appreciated. RESPIRATORY: No accessory muscle use. Clear to auscultation. Breath sounds equal bilaterally. GASTROINTESTINAL: Abdomen soft, non-tender, nondistended. MUSCULOSKELETAL: No obvious deformities. No clubbing. No cyanosis. No edema. NEUROLOGICAL: Awake and alert. No obvious cranial nerve deficits. Motor grossly within normal limits. Normal speech. PSYCHIATRIC: Appropriate mood and affect; insight and judgment normal. Data Data Last Documented VS Vital Signs Date Time Temp Pulse Resp B/P (MAP) Pulse Ox O2 Delivery O2 Flow Rate FiO2 06/26/17 11:50 77 18 102/54 (70) 97 Room Air 06/26/17 10:21 97.8 Orders Orders Complete Blood Count With Diff (06/26/17 10:55) Comprehensive Metabolic Panel (06/26/17 10:55) Iv Access Insert/Monitor (06/26/17 10:55) Ondansetron Odt (Zofran Odt) (06/26/17 11:00) Urinalysis - C+S If Indicated (06/26/17 11:09) Drug Screen, Random Urine (06/26/17 11:09) Labs Laboratory Tests Test 06/26/17 11:10 06/26/17 11:18 White Blood Count 7.1 TH/MM3 Red Blood Count 4.22 MIL/MM3 Hemoglobin 13.7 GM/DL Hematocrit 40.0 % Mean Corpuscular Volume 94.7 FL Mean Corpuscular Hemoglobin 32.5 PG Mean Corpuscular Hemoglobin Concent 34.3 % Red Cell Distribution Width 12.7 % Platelet Count 334 TH/MM3 Mean Platelet Volume 7.1 FL Neutrophils (%) (Auto) 62.8 % Lymphocytes (%) (Auto) 27.7 % Monocytes (%) (Auto) 6.6 % Eosinophils (%) (Auto) 1.2 % Basophils (%) (Auto) 1.7 % Neutrophils # (Auto) 4.4 TH/MM3 Lymphocytes # (Auto) 2.0 TH/MM3 Monocytes # (Auto) 0.5 TH/MM3 Eosinophils # (Auto) 0.1 TH/MM3 Basophils # (Auto) 0.1 TH/MM3 CBC Comment DIFF FINAL Differential Comment Blood Urea Nitrogen 12 MG/DL Creatinine 0.75 MG/DL Random Glucose 129 MG/DL Total Protein 7.8 GM/DL Albumin 3.9 GM/DL Calcium Level 9.5 MG/DL Alkaline Phosphatase 84 U/L Aspartate Amino Transf (AST/SGOT) 13 U/L Alanine Aminotransferase (ALT/SGPT) 15 U/L Total Bilirubin 0.4 MG/DL Sodium Level 135 MEQ/L Potassium Level 3.8 MEQ/L Chloride Level 97 MEQ/L Carbon Dioxide Level 31.8 MEQ/L Anion Gap 6 MEQ/L Estimat Glomerular Filtration Rate 77 ML/MIN Urine Collection Type CLEAN CATCH Urine Color YELLOW Urine Turbidity CLEAR Urine pH 6.0 Urine Specific [place] 1.010 Urine Protein NEG mg/dL Urine Glucose (UA) NEG mg/dL Urine Ketones NEG mg/dL Urine Occult Blood NEG Urine Nitrite NEG Urine Bilirubin NEG Urine Urobilinogen 0.2 MG/DL Urine Leukocyte Esterase NEG Urine WBC 3-5 /hpf Urine Squamous Epithelial Cells 0-5 /hpf Urine Bacteria OCC /hpf Microscopic Urinalysis Comment CULT NOT INDICATED Urine Collection Time 1118 Urine Opiates Screen NEG Urine Barbiturates Screen NEG Urine Amphetamines Screen NEG Urine Benzodiazepines Screen NEG Urine Cocaine Screen NEG Urine Cannabinoids Screen NEG MDM Medical Decision Making Medical Screen Exam Complete: Yes Emergency Medical Condition: Yes Medical Record Reviewed: Yes Differential Diagnosis Dehydration versus urinary tract infection versus malingering Narrative Course Patient is a 67-year-old female who comes in with multiple nonspecific complaints. She has been here before with similar issues. She does have a psychiatric history and is not taking any of her medications. She does not appear to be a danger to herself or others at this point. Labs sent show no acute abnormalities. She drink water and eat lori crackers here with no issue. She is now asking to go home. She will be discharged home to follow-up with her doctors. Advised return as needed for any worsening symptoms. Diagnosis Primary Impression: Abdominal pain Qualified Codes: R10.84 - Generalized abdominal pain Patient Instructions: Abdominal Pain (ED), General Instructions Additional Instructions: Follow-up with your doctors. Return to the ED as needed for any worsening symptoms. Disposition: 01 DISCHARGE HOME Condition: Stable Tiera Sheehan MD June 26, 2017 12:25
== END 2017-06-26 12:31 | disposition home or self-care (01) ==
LOC: PHED 10:17
DX: R10.84 Generalized abdominal pain (principal); E78.00 Pure hypercholesterolemia, unspecified; J44.9 Chronic obstructive pulmonary disease, unspecified; E11.9 Type 2 diabetes mellitus without complications; Z79.84 Long term (current) use of oral hypoglycemic drugs; K21.9 Gastro-esophageal reflux disease without esophagitis; I10 Essential (primary) hypertension; F17.200 Nicotine dependence, unspecified, uncomplicated
CPT/HCPCS: 80053; 80307; 81001; 85025; 99283

== ENCOUNTER 2017-06-30 01:04 | Emergency (ER) | payer MEDICARE, MEDICAID ==
[~2017-06-30] VITALS: Ht 162.6 cm; Wt 38.0 kg
[2017-06-30 01:10] VITALS: BP 175/84; PULSE 80; RESP 20; TEMP 98; O2SAT 96
[2017-06-30 01:13] VITALS: BP 170/80; PULSE 80; RESP 20; O2SAT 98
--- NOTE | 2017-06-30 01:42 | PD ---
HPI Chief Complaint: Abdominal Pain Time Seen by Provider: 01:26 Travel History International Travel<30 days: No Contact w/Intl Traveler<30days: No Traveled to known affect area: No History of Present Illness HPI 67yo F with PMH of DM here with lower abdominal pain today. She said her bladder hurts but is tender diffusely in lower abdomen. +Dysuria. Said she went to her PMD today but did not have the pain yet. Denies any fever, chest pain, sob, n/v, diarrhea. Said she is constipated and it has been a few days since her bowel movement. Pt was seen here with similar complaints on 06/26/17. She last had CT a/p on 05/04/17 that was negative. PFSH Past Medical History Arthritis: Yes (neck, back) Autoimmune Disease: No Bipolar Disorder: Yes Anxiety: Yes Depression: Yes Cancer: No Cardiovascular Problems: Yes High Cholesterol: Yes Chemotherapy: No COPD: Yes Diabetes: Yes (METFORMIN) Patient Takes Glucophage: Yes Diminished Hearing: No Endocrine: Yes Gastrointestinal Disorders: Yes GERD: Yes Genitourinary: No Headaches: No Heparin Induced Thrombocytopen: No Hypertension: Yes Immune Disorder: No Implanted Vascular Access Dvce: No Musculoskeletal: Yes Neurologic: No Psychiatric: Yes Reproductive: No Respiratory: Yes (COPD) Immunizations Current: Yes Radiation Therapy: No Seizures: No Sickle Cell Disease: No Thyroid Disease: No Tetanus Vaccination: < 5 Years Influenza Vaccination: Yes Past Surgical History Arteriovenous Shunt: No Section: Yes Gynecologic Surgery: Yes (two cesareans) Insulin Pump: No Joint Replacement: No Other Surgery: Yes (two cesareans) Social History Alcohol Use: No Tobacco Use: Yes (1 PPD) Substance Use: No Allergies-Medications (Allergen,Severity, Reaction): Coded Allergies: penicillin G (Verified Allergy, Unknown, 06/26/17) trifluoperazine (Verified Adverse Reaction, Unknown, 06/26/17) Reported Meds & Prescriptions Reported Meds & Active Scripts Active Macrobid (Nitrofurantoin Monoh/Nitrofur Macro) 100 Mg Cap 100 Mg PO BID 5 Days Tylenol (Acetaminophen) 325 Mg Tab 650 Mg PO Q6H PRN Colace (Docusate Sodium) 100 Mg Capsule 100 Mg PO BID Trazodone (Trazodone HCl) 50 Mg Tab 50 Mg PO HS Carbamazepine 100 Mg Chew 100 Mg PO BID Pravastatin 20 Mg Tab 20 Mg PO DAILY Norvasc (Amlodipine Besylate) 10 Mg Tab 10 Mg PO DAILY 10 Days Reported Metformin (Metformin HCl) 500 Mg Tab 500 Mg PO DAILY With a meal Review of Systems Except as stated in HPI: all other systems reviewed are Neg Physical Exam Narrative GENERAL: 67yo F in mild distress. SKIN: Focused skin assessment warm/dry. HEAD: Atraumatic. Normocephalic. EYES: Pupils equal and round. No scleral icterus. No injection or drainage. ENT: No nasal bleeding or discharge. Mucous membranes pink and moist. NECK: Trachea midline. No JVD. CARDIOVASCULAR: Regular rate and rhythm. No murmur appreciated. RESPIRATORY: No accessory muscle use. Clear to auscultation. Breath sounds equal bilaterally. GASTROINTESTINAL: Abdomen soft, +TTP diffusely lower abdomen. No rebound tenderness or guarding. MUSCULOSKELETAL: No obvious deformities. No clubbing. No cyanosis. No edema. NEUROLOGICAL: Awake and alert. No obvious cranial nerve deficits. Motor grossly within normal limits. Normal speech. Data Data Last Documented VS Vital Signs Date Time Temp Pulse Resp B/P (MAP) Pulse Ox O2 Delivery O2 Flow Rate FiO2 06/30/17 05:02 06/30/17 02:24 20 06/30/17 01:13 80 98 Room Air 06/30/17 01:10 98.0 Orders Orders Complete Blood Count With Diff (06/30/17 01:33) Comprehensive Metabolic Panel (06/30/17 01:33) Lipase (06/30/17 01:33) Urinalysis - C+S If Indicated (06/30/17 01:33) Ct Abd/Pel W Iv Contrast(Rout) (06/30/17 01:33) Morphine Inj (Morphine Inj) (06/30/17 01:45) Iohexol 350 Inj (Omnipaque 350 Inj) (06/30/17 03:24) Fleets Enema (Adult) (Fleets Enema (Adul (06/30/17 04:30) Acetaminophen (Tylenol) (06/30/17 04:30) Ed Discharge Order (06/30/17 04:37) Labs Laboratory Tests Test 06/30/17 01:50 06/30/17 01:55 Urine Color YELLOW Urine Turbidity HAZY Urine pH 7.0 Urine Specific [place] 1.016 Urine Protein TRACE mg/dL Urine Glucose (UA) NEG mg/dL Urine Ketones NEG mg/dL Urine Occult Blood NEG Urine Nitrite NEG Urine Bilirubin NEG Urine Urobilinogen 2.0 MG/DL Urine Leukocyte Esterase NEG Urine RBC 2 /hpf Urine WBC 3 /hpf Urine Squamous Epithelial Cells 1 /hpf Urine Transitional Epithelial Cells 1 /hpf Urine Amorphous Sediment RARE Urine Bacteria RARE /hpf Urine Mucus FEW /lpf Microscopic Urinalysis Comment CULT NOT INDICATED White Blood Count 9.9 TH/MM3 Red Blood Count 4.34 MIL/MM3 Hemoglobin 14.6 GM/DL Hematocrit 41.8 % Mean Corpuscular Volume 96.5 FL Mean Corpuscular Hemoglobin 33.5 PG Mean Corpuscular Hemoglobin Concent 34.8 % Red Cell Distribution Width 12.9 % Platelet Count 413 TH/MM3 Mean Platelet Volume 7.3 FL Neutrophils (%) (Auto) 52.9 % Lymphocytes (%) (Auto) 39.1 % Monocytes (%) (Auto) 5.6 % Eosinophils (%) (Auto) 1.9 % Basophils (%) (Auto) 0.5 % Neutrophils # (Auto) 5.2 TH/MM3 Lymphocytes # (Auto) 3.8 TH/MM3 Monocytes # (Auto) 0.6 TH/MM3 Eosinophils # (Auto) 0.2 TH/MM3 Basophils # (Auto) 0.1 TH/MM3 CBC Comment DIFF FINAL Differential Comment Blood Urea Nitrogen 15 MG/DL Creatinine 0.80 MG/DL Random Glucose 114 MG/DL Total Protein 7.4 GM/DL Albumin 3.7 GM/DL Calcium Level 9.2 MG/DL Alkaline Phosphatase 80 U/L Aspartate Amino Transf (AST/SGOT) 16 U/L Alanine Aminotransferase (ALT/SGPT) 17 U/L Total Bilirubin 0.3 MG/DL Sodium Level 138 MEQ/L Potassium Level 3.6 MEQ/L Chloride Level 102 MEQ/L Carbon Dioxide Level 28.4 MEQ/L Anion Gap 8 MEQ/L Estimat Glomerular Filtration Rate 72 ML/MIN Lipase 59 U/L [facility] Medical Decision Making Medical Screen Exam Complete: Yes Emergency Medical Condition: Yes Differential Diagnosis Cystitis vs. colitis vs. constipation Narrative Course 67yo F with lower abdominal pain. Labs reviewed, no leukocytosis. H/H normal. Lipase low. CMP unremarkable. UA negative. WBC 3. Culture not indicated. However, there is rare bacteria and since pt is symptomatic, will cover with antibiotics. CT a/p showed common bile duct remains prominent with no focal lesion or filling defect. There is mild intrahepatic biliary prominence. Gallbladder remains unremarkable. Mild prominence of proximal pancreatic duct without change. Pt has no upper abdominal pain and can follow up as outpatient with GI. Unremarkable bowl gas pattern with moderate amount of stool present. Pt given morphine 2mg IV for pain. Pt wants more pain medication and is getting upset at wanting specific pain medications displaying malingering behavior. Return precautions given. Diagnosis Primary Impression: Constipation Qualified Codes: K59.00 - Constipation, unspecified Patient Instructions: General Instructions Departure Forms: Tests/Procedures Additional Instructions: Please follow up with your primary care physician for further evaluation of your abdominal pain. Return to the ED if symptoms worsen. Med/Other Pt SpecificInfo: Prescription(s) given Scripts Nitrofurantoin Monohydrate Macrocrystals (Macrobid) 100 Mg Cap 100 MG PO BID for Infection for 5 Days, #10 CAP 0 Refills Prov: Michelle Harris DO 06/30/17 Acetaminophen (Tylenol) 325 Mg Tab 650 MG PO Q6H Y for PAIN SCALE 1 TO 4, #20 TAB 0 Refills Prov: Michelle Harris DO 06/30/17 Docusate Sodium (Colace) 100 Mg Capsule 100 MG PO BID for Prevent Constipation, #20 CAP 0 Refills Prov: Michelle Harris DO 06/30/17 Disposition: 01 DISCHARGE HOME Condition: Stable Michelle Harris DO June 30, 2017 01:42
[2017-06-30] MEDS ORDERED: MORPHINE SULFATE 4 MG/ML INJ IV PUSH ONE (01:45)
[2017-06-30 02:24] VITALS: RESP 20
[2017-06-30 02:43] LABS: AMORPHOUS SEDIMENT, URINE RARE; BACTERIA, URINE RARE /hpf; BILIRUBIN, URINE NEG (NEG); BLOOD, URINE NEG (NEG); GLUCOSE,URINE NEG (NEG); KETONE, URINE NEG (NEG); MUCUS URINE FEW /lpf (OCC); NITRITE,URINE NEG (NEG); SQUAMOUS EPITHELIAL CELL URINE 1 /hpf (0-5); TRANSITIONAL EPI CELLS, URINE 1 /hpf; URINE COLOR YELLOW (YELLW/STRAW); URINE LEUKOCYTE ESTERASE NEG (NEG)
[2017-06-30 02:48] LABS: AUTOMATED NEUTROPHIL # 5.2 TH/MM3 (1.8-7.7); BASOPHIL # 0.1 TH/MM3 (0-0.2); BASOPHIL % 0.5 % (0.0-2.0); EOSINOPHIL # 0.2 TH/MM3 (0-0.4); EOSINOPHIL % 1.9 % (0.0-4.0); HEMATOCRIT 41.8 % (35.0-46.0); HEMOGLOBIN 14.6 GM/DL (11.6-15.3); LYMPH % 39.1 % (9.0-44.0); LYMPHOCYTE # 3.8 TH/MM3 (1.0-4.8); MEAN CELL VOLUME 96.5 FL (80.0-100.0); MEAN CORPUSCULAR HEMOGLOBIN 33.5 PG (27.0-34.0); MEAN CORPUSCULAR HGB CONC 34.8 % (32.0-36.0); MEAN PLATELET VOLUME 7.3 FL (7.0-11.0); MONO % 5.6 % (0.0-8.0); MONOCYTE # 0.6 TH/MM3 (0-0.9); NEUT % 52.9 % (16.0-70.0); PLATELET COUNT 413 TH/MM3 (150-450); RED BLOOD COUNT 4.34 MIL/MM3 (4.00-5.30); RED CELL DISTRIBUTION WIDTH 12.9 % (11.6-17.2); WHITE BLOOD COUNT 9.9 TH/MM3 (4.0-11.0)
[2017-06-30 02:57] LABS: ALBUMIN 3.7 GM/DL (3.4-5.0); ALT (GPT) 17 U/L (10-53); AST (GOT) 16 U/L (15-37); BICARBONATE 28.4 MEQ/L (21.0-32.0); BLOOD UREA NITROGEN 15 MG/DL (7-18); CALCIUM 9.2 MG/DL (8.5-10.1); CHLORIDE 102 MEQ/L (98-107); GLOMERULAR FILTRATION RATE 72 ML/MIN (>89); GLUCOSE,RANDOM 114 MG/DL (74-106); SODIUM (NA) 138 MEQ/L (136-145)
[2017-06-30 02:58] LABS: ALKALINE PHOSPHATASE 80 U/L (45-117); TOTAL BILIRUBIN ADULT 0.3 MG/DL (0.2-1.0); TOTAL PROTEIN 7.4 GM/DL (6.4-8.2)
[2017-06-30] MEDS ORDERED: IOHEXOL 350 MG/ML 10 ML VIAL (for RAD DIAG) IVCONTRAST ONE (03:24)
--- NOTE | 2017-06-30 03:56 | RADRPT ---
EXAM DATE: 06/30/2017 3:27 AM EDT AGE/SEX: 67 years / Female INDICATIONS: Low abdomen pain. CLINICAL DATA: This is the patient's initial encounter. Patient reports that signs and symptoms have been present for 2 days and indicates a pain score of 7/10. MEDICAL/SURGICAL HISTORY: Cardiovascular disease. Chronic obstructive pulmonary disease. None. ORAL CONTRAST: No oral contrast ingested. RADIATION DOSE: 6.64 CTDI (mGy) COMPARISON: [facility] [place]EL[place]AST, 05/04/2017. . TECHNIQUE: Multiple contiguous axial images were obtained through the abdomen and pelvis following b olus infusion of 70 ml Omnipaque 350 (iohexol) nonionic water-soluble contrast as a single exam dos e. No oral contrast ingested. Using automated exposure control and adjustment of the mA and/or kV ac cording to patient size, the radiation dose was kept as low as reasonably achievable to obtain optima l diagnostic quality images. FINDINGS: Lower Lungs: The visualized lower lungs are clear. Anatomic emphysema is present. There is mild scarr ing. There is a posterior hernia involving the left paraspinous. Liver: The liver has a homogeneous density with small benign cyst again noted left lobe. There is mil d prominence of the central hepatic biliary system, bile duct is prominent measuring size with no nimo ling defect or calculi. The gallbladder remains unremarkable. Spleen: Homogeneous density without enlargement. Pancreas: Remains normal in size and shape. There is mild prominence of the proximal pancreatic duct measuring 4 to 5 mm in size is unchanged in appearance.. Kidneys: Normal in size and shape. No evidence of mass or hydronephrosis. Adrenal Glands: Unremarkable. Aorta: The aorta and proximal iliac vessels are grossly unremarkable without aneurysmal dilation. Bowel/Mesentery: The bowel loops are grossly unremarkable. The cecum and sigmoid colon have a normal configuration. Abdominal Wall: Intact. Retroperitoneum: No evidence of adenopathy in the retrocrural, para-aortic, or deep pelvic regions. Bladder: Contours are smooth. Reproductive Organs: No abnormal masses or calcifications seen. Inguinal: The inguinal region is unremarkable without evidence of adenopathy. Bony Structures: Unremarkable. CONCLUSION: 1. The common bile duct remains prominent measuring 9 to 10 mm in size with no focal lesion or filli ng defect. There is mild intrahepatic central biliary prominence as well. The gallbladder remains unr emarkable. 2. Mild prominence of proximal pancreatic duct without change. There is no identifiable mass. 3. Unremarkable bowel gas pattern with moderate amount of stool present. Electronically signed by: Renzo Velez MD 06/30/2017 3:55 AM EDT
[2017-06-30] MEDS ORDERED: SOD PHOSPHATE/SOD BIPHOSPHATE (ADULT) ENEMA 133ML RECTAL ONE (04:30)
[2017-06-30] MEDS ORDERED: ACETAMINOPHEN 500 MG CPLT PO ONE (04:30)
[2017-06-30] MEDS ORDERED: TYLE325T PO (04:36)
[2017-06-30] MEDS ORDERED: COLA100C5 PO (04:36)
[2017-06-30] MEDS ORDERED: MACR100C2 PO (04:36)
== END 2017-06-30 05:42 | disposition home or self-care (01) ==
LOC: NEPC 01:04
DX: K59.00 Constipation, unspecified (principal); E11.9 Type 2 diabetes mellitus without complications; E78.00 Pure hypercholesterolemia, unspecified; I10 Essential (primary) hypertension; F17.200 Nicotine dependence, unspecified, uncomplicated; Z79.84 Long term (current) use of oral hypoglycemic drugs
CPT/HCPCS: 74177; 80053; 81001; 83690; 85025; 96374; 99284; J2270; Q9967

== ENCOUNTER 2017-07-21 07:59 | Emergency (ER) | payer MEDICAID, MEDICARE ==
[~2017-07-21] VITALS: Ht 144.8 cm; Wt 38.8 kg
[~2017-07-21 07:59] MED LIST changes: +COLA100C5 PO; +MACR100C2 PO; +TYLE325T PO
[2017-07-21 08:04] VITALS: BP 170/86; PULSE 93; RESP 16; TEMP 98.3; O2SAT 96
[2017-07-21] MEDS ORDERED: TRAZ100T10 PO (08:15)
[2017-07-21 08:34] LABS: BILIRUBIN, URINE NEG (NEG); BLOOD, URINE NEG (NEG); GLUCOSE,URINE NEG (NEG); KETONE, URINE NEG (NEG); NITRITE,URINE NEG (NEG); URINE COLOR YELLOW (YELLW/STRAW); URINE LEUKOCYTE ESTERASE NEG (NEG)
[2017-07-21 08:43] LABS: WBC, URINE 0-2 /hpf (0-5)
[2017-07-21 08:44] LABS: HYALINE CAST, URINE 0-1 /lpf (RARE)
--- NOTE | 2017-07-21 08:53 | PD ---
HPI Chief Complaint: Complaint Time Seen by Provider: 08:29 Travel History International Travel<30 days: No Contact w/Intl Traveler<30days: No Traveled to known affect area: No History of Present Illness HPI This 67-year-old female is complaining of inability to void. She says she has not been able to pee since last night. She has had trouble with her urinary system for some time. She is apparently been diagnosed with interstitial cystitis and does see a urologist. She has recently been treated for an infection. She has come to the ER previously for drainage of her bladder. PFSH Past Medical History Hx Anticoagulant Therapy: No Arthritis: Yes (neck, back) Autoimmune Disease: No Bipolar Disorder: Yes Anxiety: Yes Depression: Yes Cancer: No Cardiovascular Problems: Yes (htn on meds) High Cholesterol: Yes Chemotherapy: No COPD: Yes Diabetes: Yes (type 2) Patient Takes Glucophage: Yes Diminished Hearing: No Endocrine: Yes Gastrointestinal Disorders: Yes GERD: Yes Genitourinary: No Headaches: No Heparin Induced Thrombocytopen: No Hypertension: Yes Immune Disorder: No Implanted Vascular Access Dvce: No Musculoskeletal: Yes Neurologic: No Psychiatric: Yes Reproductive: No Respiratory: Yes (COPD) Immunizations Current: Yes Radiation Therapy: No Seizures: No Sickle Cell Disease: No Thyroid Disease: No Tetanus Vaccination: < 5 Years ?: Not Past Surgical History Arteriovenous Shunt: No Section: Yes Gynecologic Surgery: Yes (two cesareans) Insulin Pump: No Joint Replacement: No Other Surgery: Yes (two cesareans) Social History Alcohol Use: No Tobacco Use: Yes (1 PPD) Substance Use: No Allergies-Medications (Allergen,Severity, Reaction): Coded Allergies: penicillin G (Verified Allergy, Unknown, 07/21/17) trifluoperazine (Verified Adverse Reaction, Unknown, 07/21/17) Reported Meds & Prescriptions Reported Meds & Active Scripts Active Tylenol (Acetaminophen) 325 Mg Tab 650 Mg PO Q6H PRN Colace (Docusate Sodium) 100 Mg Capsule 100 Mg PO BID Carbamazepine 100 Mg Chew 100 Mg PO BID Pravastatin 20 Mg Tab 20 Mg PO DAILY Norvasc (Amlodipine Besylate) 10 Mg Tab 10 Mg PO DAILY 10 Days Reported Trazodone (Trazodone HCl) 100 Mg Tablet 100 Mg PO HS Metformin (Metformin HCl) 500 Mg Tab 500 Mg PO DAILY With a meal Review of Systems Except as stated in HPI: all other systems reviewed are Neg Genitourinary: Positive: Decreased Urinary Output Physical Exam Narrative GENERAL: Well-developed female SKIN: Focused skin assessment warm/dry. HEAD: Atraumatic. Normocephalic. EYES: Pupils equal and round. No scleral icterus. No injection or drainage. ENT: No nasal bleeding or discharge. Mucous membranes pink and moist. NECK: Trachea midline. No JVD. GASTROINTESTINAL: Abdomen soft, non-tender, nondistended. Hepatic and splenic margins not palpable. Bladder is not palpable MUSCULOSKELETAL: No obvious deformities. No clubbing. No cyanosis. No edema. NEUROLOGICAL: Awake and alert. No obvious cranial nerve deficits. Motor grossly within normal limits. Normal speech. PSYCHIATRIC: Appropriate mood and affect; insight and judgment normal. Data Data Last Documented VS Vital Signs Date Time Temp Pulse Resp B/P (MAP) Pulse Ox O2 Delivery O2 Flow Rate FiO2 07/21/17 08:04 98.3 93 16 170/86 (114) 96 Orders Orders Urinalysis - C+S If Indicated (07/21/17 08:01) Cath For Specimen (07/21/17 08:36) Urinary Catheter Insert/Apply (07/21/17 08:36) Labs Laboratory Tests Test 07/21/17 08:18 Urine Collection Type CATH Urine Color YELLOW Urine Turbidity CLEAR Urine pH 6.0 Urine Specific [place] 1.015 Urine Protein NEG mg/dL Urine Glucose (UA) NEG mg/dL Urine Ketones NEG mg/dL Urine Occult Blood NEG Urine Nitrite NEG Urine Bilirubin NEG Urine Urobilinogen 0.2 MG/DL Urine Leukocyte Esterase NEG Urine WBC 0-2 /hpf Urine Hyaline Casts 0-1 /lpf Microscopic Urinalysis Comment CULT NOT INDICATED MDM Medical Decision Making Medical Screen Exam Complete: Yes Emergency Medical Condition: Yes Medical Record Reviewed: Yes Differential Diagnosis Differential includes urinary retention, interstitial cystitis, UTI Narrative Course Urine was sent to the lab is negative for infection. Patient was catheterized for the specimen after this catheterization she was able to urinate spontaneously. She will be released Diagnosis Primary Impression: Interstitial cystitis Disposition: 01 DISCHARGE HOME Condition: Stable Ramon Nicole MD Jul 21, 2017 08:53
== END 2017-07-21 09:02 | disposition home or self-care (01) ==
LOC: PHED 07:59
DX: N30.10 Interstitial cystitis (chronic) without hematuria (principal); M47.9 Spondylosis, unspecified; F31.9 Bipolar disorder, unspecified; F41.9 Anxiety disorder, unspecified; I10 Essential (primary) hypertension; E78.00 Pure hypercholesterolemia, unspecified; J44.9 Chronic obstructive pulmonary disease, unspecified; E11.9 Type 2 diabetes mellitus without complications; K21.9 Gastro-esophageal reflux disease without esophagitis; F17.200 Nicotine dependence, unspecified, uncomplicated; Z79.82 Long term (current) use of aspirin; Z79.899 Other long term (current) drug therapy; Z88.0 Allergy status to penicillin; Z88.8 Allergy status to other drugs, medicaments and biological substances
CPT/HCPCS: 81001; 99283; P9612

== ENCOUNTER 2017-07-21 11:51 | Emergency (ER) | payer MEDICARE, MEDICAID ==
[~2017-07-21] VITALS: Ht 152.4 cm; Wt 40.0 kg
[~2017-07-21 11:51] MED LIST changes: +TRAZ100T10 PO
[2017-07-21 11:59] VITALS: BP 136/82; PULSE 96; RESP 16; TEMP 98; O2SAT 98
--- NOTE | 2017-07-21 12:26 | PD ---
HPI Chief Complaint: Complaint Time Seen by Provider: 12:23 Travel History International Travel<30 days: No Contact w/Intl Traveler<30days: No Traveled to known affect area: No History of Present Illness HPI 67-year-old female, with history of interstitial cystitis, presents to the emergency department with complaint of not being able to urinate after being seen this morning at [facility] ER and was catheterized for urine. She said she did spontaneously urinate after being catheterized in the ER this morning, but has not been able to urinate since and feels bladder pressure and the urge to urinate. Says her symptoms started last night. She has not had any issues with this for a while now. Denies fever, vomiting. Reports bladder pain and pressure. Has not taken any medications or try any treatments to alleviate her symptoms after her visit this morning. No known aggravating or relieving factors. Symptoms are moderate in severity. Primary care provider is Dr. De La Cruz. Her urologist is Dr. Briceño. History of hypertension and DM. Allergies to penicillins and trifluoperazine. Has no other medical complaints. No other modifying factors or associated signs and symptoms. PFSH Past Medical History Hx Anticoagulant Therapy: No Arthritis: Yes (neck, back) Autoimmune Disease: No Bipolar Disorder: Yes Anxiety: Yes Depression: Yes Cancer: No Cardiovascular Problems: Yes (htn on meds) High Cholesterol: Yes Chemotherapy: No COPD: Yes Diabetes: Yes (type 2) Diminished Hearing: No Endocrine: Yes Gastrointestinal Disorders: Yes GERD: Yes Genitourinary: No Headaches: No Heparin Induced Thrombocytopen: No Hypertension: Yes Immune Disorder: No Implanted Vascular Access Dvce: No Musculoskeletal: Yes Neurologic: No Psychiatric: Yes Reproductive: No Respiratory: Yes (COPD) Immunizations Current: Yes Radiation Therapy: No Seizures: No Sickle Cell Disease: No Thyroid Disease: No Past Surgical History Arteriovenous Shunt: No Section: Yes Gynecologic Surgery: Yes (two cesareans) Insulin Pump: No Joint Replacement: No Other Surgery: Yes (two cesareans) Social History Alcohol Use: No Tobacco Use: Yes (1 PPD) Substance Use: No Allergies-Medications (Allergen,Severity, Reaction): Coded Allergies: penicillin G (Verified Allergy, Unknown, 07/21/17) trifluoperazine (Verified Adverse Reaction, Unknown, 07/21/17) Reported Meds & Prescriptions Reported Meds & Active Scripts Active Pravastatin 20 Mg Tab 20 Mg PO DAILY Reported Metformin (Metformin HCl) 500 Mg Tab 500 Mg PO DAILY With a meal Review of Systems Except as stated in HPI: all other systems reviewed are Neg Physical Exam Narrative GENERAL: Well-nourished, well-developed female patient, in no acute distress SKIN: Warm and dry. No rash. HEAD: Atraumatic. Normocephalic. EYES: Pupils equal and round. No scleral icterus. No injection or drainage. ENT: Mucosa pink and moist. NECK: Trachea midline. CARDIOVASCULAR: Regular rate RESPIRATORY: No accessory muscle use. GASTROINTESTINAL: Abdomen soft, non-tender, nondistended. Hepatic and splenic margins not palpable. Bowel sounds are active 4 quadrants. Bladder tenderness and distended on exam. MUSCULOSKELETAL: No obvious deformities. No clubbing. No cyanosis. No edema. NEUROLOGICAL: Awake and alert. Oriented 3. No obvious cranial nerve deficits. Motor grossly within normal limits. Normal speech. Moves all extremities. 5/5 strength to all extremities. PSYCHIATRIC: Appropriate mood and affect; insight and judgment normal. Data Data Last Documented VS Vital Signs Date Time Temp Pulse Resp B/P (MAP) Pulse Ox O2 Delivery O2 Flow Rate FiO2 07/21/17 11:59 98.0 96 16 136/82 (100) 98 Orders Orders Urinary Catheter Insert/Apply (07/21/17 12:23) Ed Discharge Order (07/21/17 12:23) [facility] Medical Decision Making Medical Screen Exam Complete: Yes Emergency Medical Condition: Yes Medical Record Reviewed: Yes Differential Diagnosis Urinary retention, UTI, interstitial cystitis Narrative Course 67-year-old female with history of interstitial cystitis with urinary retention since last night. She was seen in [place] ER this morning and was straight cathed and was able to spontaneously void after being straight cathed. She had urinalysis which was unremarkable. I discussed the patient with Dr. Herbert and she agrees with my plan of care. Mccurdy catheter inserted and patient will be discharged with Mccurdy catheter in place. Instructed patient to follow-up with urologist. Instructed patient to follow up with primary care provider. Patient verbalizes understanding and agreement with treatment plan. Patient is medically cleared and stable for discharge. Discussed reasons to return to the emergency department. Patient agrees with treatment plan. The patients vital signs are stable and the patient is stable for outpatient follow-up and treatment. Patient discharged home, stable and in no acute distress. Diagnosis Primary Impression: Urinary retention Referrals: Primary Care Physician Urologist Patient Instructions: Acute Urinary Retention in Women (ED), Mccurdy Catheter Placement and Care (ED), General Instructions Additional Instructions: Refer to discharge instructions for Mccurdy catheter insertion and care Follow-up with urologist Follow-up with primary care provider Return to the emergency department immediately if worsening of symptoms Med/Other Pt SpecificInfo: No Change to Meds, No Meds Exist/No RX given Disposition: 01 DISCHARGE HOME Condition: Stable Yara Lemon Jul 21, 2017 12:26
== END 2017-07-21 14:00 | disposition home or self-care (01) ==
LOC: NEPE 11:51
DX: R33.9 Retention of urine, unspecified (principal); I10 Essential (primary) hypertension; E11.9 Type 2 diabetes mellitus without complications; E78.00 Pure hypercholesterolemia, unspecified; K21.9 Gastro-esophageal reflux disease without esophagitis; F17.200 Nicotine dependence, unspecified, uncomplicated; Z79.84 Long term (current) use of oral hypoglycemic drugs; Z87.39 Personal history of other diseases of the musculoskeletal system and connective tissue; Z86.59 Personal history of other mental and behavioral disorders; Z87.09 Personal history of other diseases of the respiratory system; Z87.19 Personal history of other diseases of the digestive system
CPT/HCPCS: 51702

== ENCOUNTER 2017-07-24 12:06 | Emergency (ER) | payer MEDICARE, MEDICAID ==
[~2017-07-24] VITALS: Ht 147.3 cm; Wt 38.6 kg
[2017-07-24 12:09] VITALS: BP 114/57; PULSE 92; RESP 16; TEMP 98.3; O2SAT 93
[2017-07-24] MEDS ORDERED: AMLO10TA2 PO (12:20)
[2017-07-24] MEDS ORDERED: LOSA100T PO (12:20)
--- NOTE | 2017-07-24 12:56 | PD ---
HPI Chief Complaint: Complaint Time Seen by Provider: 12:45 Travel History International Travel<30 days: No Contact w/Intl Traveler<30days: No Traveled to known affect area: No History of Present Illness HPI The patient was seen and examined in the presence of the nurse. This patient complains of inability to urinate. She thinks she is dehydrated and wants IV fluid. Seen here numerous times in the last month for urinary complaints. She feels like she cannot produce urine. She was given a catheter 3 days ago which was removed yesterday by her urologist. Symptom severity is moderate. No alleviating factors. No exacerbating factors. She denies fever or flank pain. Duration 3 days PFSH Past Medical History Hx Anticoagulant Therapy: No Arthritis: Yes (neck, back) Autoimmune Disease: No Bipolar Disorder: Yes Anxiety: Yes Depression: Yes Cancer: No Cardiovascular Problems: Yes (htn on meds) High Cholesterol: Yes Chemotherapy: No COPD: Yes Diabetes: Yes (type 2) Patient Takes Glucophage: Yes Diminished Hearing: No Endocrine: Yes Gastrointestinal Disorders: Yes GERD: Yes Genitourinary: No Headaches: No Heparin Induced Thrombocytopen: No Hypertension: Yes Immune Disorder: No Implanted Vascular Access Dvce: No Musculoskeletal: Yes Neurologic: No Psychiatric: Yes Reproductive: No Respiratory: Yes (COPD) Immunizations Current: Yes Radiation Therapy: No Seizures: No Sickle Cell Disease: No Thyroid Disease: No Influenza Vaccination: Yes ?: Not Past Surgical History Arteriovenous Shunt: No Section: Yes Gynecologic Surgery: Yes (two cesareans) Insulin Pump: No Joint Replacement: No Other Surgery: Yes (two cesareans) Social History Alcohol Use: No Tobacco Use: Yes (1 PPD) Substance Use: No Allergies-Medications (Allergen,Severity, Reaction): Coded Allergies: penicillin G (Verified Allergy, Unknown, 07/24/17) trifluoperazine (Verified Adverse Reaction, Unknown, 07/24/17) Reported Meds & Prescriptions Reported Meds & Active Scripts Active Pravastatin 20 Mg Tab 20 Mg PO DAILY Reported Amlodipine (Amlodipine Besylate) 10 Mg Tab 20 Mg PO DAILY Losartan (Losartan Potassium) 100 Mg Tab 100 Mg PO DAILY Metformin (Metformin HCl) 500 Mg Tab 500 Mg PO DAILY With a meal Review of Systems General / Constitutional: No: Fever Eyes: No: Visual changes HENT: No: Headaches Cardiovascular: No: Chest Pain or Discomfort Respiratory: No: Shortness of Breath Gastrointestinal: No: Abdominal Pain Genitourinary: Positive: Decreased Urinary Output, No: Dysuria Musculoskeletal: No: Pain Skin: No Rash Neurologic: No: Weakness Psychiatric: No: Depression Endocrine: No: Polydipsia Hematologic/Lymphatic: No: Easy Bruising Physical Exam Narrative GENERAL: Well-nourished, well-developed patient in no apparent distress. SKIN: Focused skin assessment reveals no rash and nodules. Skin is Warm and dry. HEAD: Atraumatic. Normocephalic. EYES: Pupils equal and round. No scleral icterus. No injection or drainage. ENT: No nasal bleeding or discharge. Mucous membranes pink and moist. NECK: Trachea midline. No JVD. CARDIOVASCULAR: Regular rate and rhythm. No murmur appreciated. RESPIRATORY: No accessory muscle use. Clear to auscultation. Breath sounds equal bilaterally. GASTROINTESTINAL: Abdomen soft, non-tender, nondistended. Hepatic and splenic margins not palpable. MUSCULOSKELETAL: No obvious deformities. No clubbing. No cyanosis. No edema. NEUROLOGICAL: Awake and alert. No obvious cranial nerve deficits. Motor grossly within normal limits. Normal speech. PSYCHIATRIC: Appropriate mood and affect; insight and judgment questionable . Data Data Last Documented VS Vital Signs Date Time Temp Pulse Resp B/P (MAP) Pulse Ox O2 Delivery O2 Flow Rate FiO2 07/24/17 12:09 98.3 92 16 114/57 (76) 93 Orders Orders Complete Blood Count With Diff (07/24/17 12:52) Basic Metabolic Panel (Bmp) (07/24/17 12:52) Iv Access Insert/Monitor (07/24/17 12:52) Sodium Chlor 0.9% 1000 Ml Inj (Ns 1000 M (07/24/17 13:00) Urinary Catheter Insert/Apply (07/24/17 12:52) Urinary Catheter - Remove (07/24/17 13:53) Ed Discharge Order (07/24/17 13:53) Labs Laboratory Tests Test 07/24/17 13:05 White Blood Count 5.8 TH/MM3 Red Blood Count 4.13 MIL/MM3 Hemoglobin 13.8 GM/DL Hematocrit 40.1 % Mean Corpuscular Volume 97.2 FL Mean Corpuscular Hemoglobin 33.4 PG Mean Corpuscular Hemoglobin Concent 34.4 % Red Cell Distribution Width 11.6 % Platelet Count 333 TH/MM3 Mean Platelet Volume 6.7 FL Neutrophils (%) (Auto) 52.9 % Lymphocytes (%) (Auto) 38.3 % Monocytes (%) (Auto) 5.1 % Eosinophils (%) (Auto) 1.8 % Basophils (%) (Auto) 1.9 % Neutrophils # (Auto) 3.1 TH/MM3 Lymphocytes # (Auto) 2.2 TH/MM3 Monocytes # (Auto) 0.3 TH/MM3 Eosinophils # (Auto) 0.1 TH/MM3 Basophils # (Auto) 0.1 TH/MM3 CBC Comment DIFF FINAL Differential Comment Blood Urea Nitrogen 11 MG/DL Creatinine 0.80 MG/DL Random Glucose 96 MG/DL Calcium Level 8.9 MG/DL Sodium Level 139 MEQ/L Potassium Level 3.4 MEQ/L Chloride Level 102 MEQ/L Carbon Dioxide Level 29.0 MEQ/L Anion Gap 8 MEQ/L Estimat Glomerular Filtration Rate 72 ML/MIN MDM Medical Decision Making Medical Screen Exam Complete: Yes Emergency Medical Condition: Yes Medical Record Reviewed: Yes Differential Diagnosis Neurogenic bladder, dehydration, urethral stricture Narrative Course I have reviewed the patient's electronic medical record. Reviewed her visit from July 21, 2017 IV placed and labs sent I gave her IV normal saline Mccurdy catheter placed, minimal urine in the bladder She belatedly admits that she urinated this morning CBC and metabolic profile are normal. She is got IV fluid and is well hydrated. She did not have urinary obstruction and has no renal failure. Her your own urologist took her catheter yesterday so I do not think she needs to go home with 1. We will remove it and discharge her to follow-up with urology. Diagnosis Primary Impression: Decreased urinary output Additional Instructions: Follow-up with urology Med/Other Pt SpecificInfo: Other Disposition: DISCHARGE HOME Condition: Stable Buck Worley MD Jul 24, 2017 12:56
[2017-07-24] MEDS ORDERED: SODIUM CHLOR 0.9% 1000 ML INJ 1,000 ML IV ONE (13:00)
[2017-07-24 13:24] LABS: AUTOMATED NEUTROPHIL # 3.1 TH/MM3 (1.8-7.7); BASOPHIL # 0.1 TH/MM3 (0-0.2); BASOPHIL % 1.9 % (0.0-2.0); EOSINOPHIL # 0.1 TH/MM3 (0-0.4); EOSINOPHIL % 1.8 % (0.0-4.0); HEMATOCRIT 40.1 % (35.0-46.0); HEMOGLOBIN 13.8 GM/DL (11.6-15.3); LYMPH % 38.3 % (9.0-44.0); LYMPHOCYTE # 2.2 TH/MM3 (1.0-4.8); MEAN CELL VOLUME 97.2 FL (80.0-100.0); MEAN CORPUSCULAR HEMOGLOBIN 33.4 PG (27.0-34.0); MEAN CORPUSCULAR HGB CONC 34.4 % (32.0-36.0); MEAN PLATELET VOLUME 6.7 FL (7.0-11.0); MONO % 5.1 % (0.0-8.0); MONOCYTE # 0.3 TH/MM3 (0-0.9); NEUT % 52.9 % (16.0-70.0); PLATELET COUNT 333 TH/MM3 (150-450); RED BLOOD COUNT 4.13 MIL/MM3 (4.00-5.30); RED CELL DISTRIBUTION WIDTH 11.6 % (11.6-17.2); WHITE BLOOD COUNT 5.8 TH/MM3 (4.0-11.0)
[2017-07-24 13:26] LABS: CALCIUM 8.9 MG/DL (8.5-10.1)
[2017-07-24 13:30] LABS: CREATININE 0.8 MG/DL (0.50-1.00)
== END 2017-07-24 14:03 | disposition home or self-care (01) ==
LOC: PHED 12:06
DX: R33.9 Retention of urine, unspecified (principal); M46.90 Unspecified inflammatory spondylopathy, site unspecified; F31.9 Bipolar disorder, unspecified; F41.9 Anxiety disorder, unspecified; F32.9 Major depressive disorder, single episode, unspecified; I10 Essential (primary) hypertension; E78.00 Pure hypercholesterolemia, unspecified; J44.9 Chronic obstructive pulmonary disease, unspecified; E11.9 Type 2 diabetes mellitus without complications; K21.9 Gastro-esophageal reflux disease without esophagitis; F17.200 Nicotine dependence, unspecified, uncomplicated; Z79.899 Other long term (current) drug therapy; Z88.0 Allergy status to penicillin; Z88.8 Allergy status to other drugs, medicaments and biological substances
CPT/HCPCS: 51702; 80048; 85025; 96360; 99284; J7030

== ENCOUNTER 2017-07-25 10:21 | Emergency (ER) | payer MEDICARE, MEDICAID ==
[~2017-07-25] VITALS: Ht 147.3 cm; Wt 39.9 kg
[~2017-07-25 10:21] MED LIST changes: -AMLO10 PO; +AMLO10TA2 PO; -CARB100C PO; -COLA100C5 PO; +LOSA100T PO; -MACR100C2 PO; -TRAZ100T10 PO; -TRAZ50TA12 PO; -TYLE325T PO
[2017-07-25 10:32] VITALS: BP 131/60; PULSE 83; RESP 18; TEMP 98.4; O2SAT 92
--- NOTE | 2017-07-25 12:04 | PD ---
HPI Chief Complaint: Complaint Time Seen by Provider: 10:52 Travel History International Travel<30 days: No Contact w/Intl Traveler<30days: No Traveled to known affect area: No History of Present Illness HPI This 67-year-old woman who presents to the emergency department complaining of feeling like she needs to void but cannot. She is a history of recent diagnosis of interstitial cystitis. She has multiple ED visits in the past several days for similar symptoms. She had a Mccurdy catheter placed, then removed by her urologist, and then seen again yesterday for feelings of needing to void, the placed a Mccurdy catheter minimal urine came out. She has had labs of been unremarkable. Has back and there is a saying that she "cannot urinate". History Past Medical History Narrative Medical Hypertension Diabetes Recent diagnosis of interstitial cystitis over the past several months Tetanus Vaccination: < 5 Years Influenza Vaccination: Yes Social History Alcohol Use: No Tobacco Use: Yes (1 PPD) Allergies-Medications (Allergen,Severity, Reaction): Coded Allergies: penicillin G (Verified Allergy, Unknown, 07/25/17) trifluoperazine (Verified Adverse Reaction, Unknown, 07/25/17) Reported Meds & Prescriptions Reported Meds & Active Scripts Active Pravastatin 20 Mg Tab 20 Mg PO DAILY Reported Amlodipine (Amlodipine Besylate) 10 Mg Tab 20 Mg PO DAILY Losartan (Losartan Potassium) 100 Mg Tab 100 Mg PO DAILY Metformin (Metformin HCl) 500 Mg Tab 500 Mg PO DAILY With a meal Review of Systems Except as stated in HPI: all other systems reviewed are Neg Physical Exam Narrative GENERAL: Well-appearing 67-year-old woman, no acute distress. Fatigue. SKIN: Focused skin assessment warm/dry. CARDIOVASCULAR: Warm and well-perfused. RESPIRATORY: Normal rate and effort. GASTROINTESTINAL: No visible distention. MUSCULOSKELETAL: No obvious deformities. Data Data Last Documented VS Vital Signs Date Time Temp Pulse Resp B/P (MAP) Pulse Ox O2 Delivery O2 Flow Rate FiO2 07/25/17 10:32 98.4 83 18 131/60 (83) 92 MDM Medical Decision Making Medical Screen Exam Complete: Yes Emergency Medical Condition: Yes Differential Diagnosis Dysuria, infection, irritation, retention, other Narrative Course Medical decision making Is a 67-year-old woman presents emerged from complaining of that she cannot urinate. Multiple recent workups for this. Urine to been normal. Labs of been normal. She has had several Mccurdy catheters. This actually may be contributing to her irritation and dysuria feelings. Bladder scanner shows 30 mL's of urine in the bladder. She believes that she needs a Mccurdy catheter. I think this would be counter therapeutic at this point. I recommended that we give her some p.o. fluids and monitor her here. We were going to repeat her bladder scan and an hour however she went to use the bathroom and then eloped without speaking with anybody. In any case I think that her feelings of needing to urinate or not related to urinary retention would not be served by placing a Mccurdy catheter. Recommend that she follow-up with her urologist. Diagnosis Primary Impression: Dysuria Additional Instructions: Follow-up with urologist as planned. Return to the emergency department for any new or worsening symptoms. Disposition: 01 DISCHARGE HOME Condition: Stable Jacobo Rod MD Jul 25, 2017 12:04
== END 2017-07-25 12:10 | disposition home or self-care (01) ==
LOC: PHED 10:21
DX: R30.0 Dysuria (principal); N30.10 Interstitial cystitis (chronic) without hematuria; I10 Essential (primary) hypertension; E11.9 Type 2 diabetes mellitus without complications; Z88.0 Allergy status to penicillin; Z72.0 Tobacco use
CPT/HCPCS: 51798

== ENCOUNTER 2017-07-25 19:09 | Emergency (ER) | payer MEDICARE, MEDICAID ==
[2017-07-25 19:14] VITALS: BP 140/63; PULSE 75; RESP 16; TEMP 97.7; O2SAT 98
--- NOTE | 2017-07-25 20:18 | PD ---
HPI Chief Complaint: Complaint Time Seen by Provider: 19:26 Travel History International Travel<30 days: No Contact w/Intl Traveler<30days: No Traveled to known affect area: No History of Present Illness HPI Patient is a 67-year-old female who has been here multiple times complaining that she is unable to urinate. She was seen earlier today and she urinated and left the hospital. She says she has not been able to urinate since then. She says she saw her urologist last week and had a Mccurdy catheter placed. She says it was taken out a few days later and she was able to urinate. She says that she is very uncomfortable because she has the urge to urinate, but is unable to. She denies any abdominal pain. She also reports some constipation. She denies fever chills. Severity is mild. PFSH Past Medical History Hx Anticoagulant Therapy: No Arthritis: Yes (neck, back) Autoimmune Disease: No Bipolar Disorder: Yes Anxiety: Yes Depression: Yes Cancer: No Cardiovascular Problems: Yes (htn on meds) High Cholesterol: Yes Chemotherapy: No COPD: Yes Diabetes: Yes (METFORMIN) Patient Takes Glucophage: No Diminished Hearing: No Endocrine: Yes Gastrointestinal Disorders: Yes GERD: Yes Genitourinary: No Headaches: No Heparin Induced Thrombocytopen: No Hypertension: Yes Immune Disorder: No Implanted Vascular Access Dvce: No Musculoskeletal: Yes Neurologic: No Psychiatric: Yes Reproductive: No Respiratory: Yes (COPD) Immunizations Current: Yes Radiation Therapy: No Seizures: No Sickle Cell Disease: No Thyroid Disease: No Past Surgical History Arteriovenous Shunt: No Section: Yes Gynecologic Surgery: Yes (two cesareans) Insulin Pump: No Joint Replacement: No Other Surgery: Yes (two cesareans) Social History Alcohol Use: No Tobacco Use: Yes (1 PPD) Substance Use: No Allergies-Medications (Allergen,Severity, Reaction): Coded Allergies: penicillin G (Verified Allergy, Unknown, 07/25/17) trifluoperazine (Verified Adverse Reaction, Unknown, 07/25/17) Reported Meds & Prescriptions Reported Meds & Active Scripts Active Pravastatin 20 Mg Tab 20 Mg PO DAILY Reported Amlodipine (Amlodipine Besylate) 10 Mg Tab 20 Mg PO DAILY Losartan (Losartan Potassium) 100 Mg Tab 100 Mg PO DAILY Metformin (Metformin HCl) 500 Mg Tab 500 Mg PO DAILY With a meal Review of Systems General / Constitutional: No: Fever, Chills HENT: No: Headaches, Lightheadedness Cardiovascular: No: Chest Pain or Discomfort Respiratory: No: Shortness of Breath Gastrointestinal: No: Nausea, Vomiting Genitourinary: Positive: Decreased Urinary Output, No: Dysuria Skin: No Rash, No Change in Pigmentation Neurologic: No: Weakness, Dizziness, Syncope Physical Exam Narrative GENERAL: Awake and alert, no acute distress. SKIN: Focused skin assessment warm/dry. HEAD: Atraumatic. Normocephalic. EYES: Pupils equal and round. No scleral icterus. ENT: Mucous membranes pink and moist. CARDIOVASCULAR: Regular rate and rhythm. No murmur appreciated. RESPIRATORY: No accessory muscle use. Clear to auscultation. Breath sounds equal bilaterally. GASTROINTESTINAL: Abdomen soft, non-tender, nondistended. MUSCULOSKELETAL: No obvious deformities. No clubbing. No cyanosis. No edema. NEUROLOGICAL: Awake and alert. No obvious cranial nerve deficits. Motor grossly within normal limits. Normal speech. Data Data Last Documented VS Vital Signs Date Time Temp Pulse Resp B/P (MAP) Pulse Ox O2 Delivery O2 Flow Rate FiO2 07/25/17 19:14 97.7 75 16 140/63 (88) 98 Orders Orders Urinary Catheter Management [id number] (07/25/17 19:37) MDM Medical Decision Making Medical Screen Exam Complete: Yes Emergency Medical Condition: Yes Medical Record Reviewed: Yes Differential Diagnosis Interstitial cystitis versus bladder spasm versus inability to urinate Narrative Course Patient is a 67-year-old female who comes in because she says she is unable to urinate. She was seen earlier today had lab work done that showed no acute abnormalities. Patient is requesting a Mccurdy catheter. Mccurdy was placed, 100 cc of urine drained. She will be discharged with a Mccurdy in place. Advised follow-up with urology. Advised return to the ED as needed for any worsening symptoms. Diagnosis Primary Impression: Inability to urinate Patient Instructions: Mccurdy Catheter Placement and Care (ED), General Instructions Additional Instructions: Follow-up with urology. Return to the ED as needed for any worsening symptoms. Disposition: 01 DISCHARGE HOME Condition: Stable Tiera Sheehan MD Jul 25, 2017 20:18
== END 2017-07-25 21:39 | disposition home or self-care (01) ==
LOC: NEPE 19:09
DX: R33.9 Retention of urine, unspecified (principal); K59.00 Constipation, unspecified; E11.9 Type 2 diabetes mellitus without complications; E78.00 Pure hypercholesterolemia, unspecified; F31.9 Bipolar disorder, unspecified; F41.9 Anxiety disorder, unspecified; I10 Essential (primary) hypertension; J44.9 Chronic obstructive pulmonary disease, unspecified; K21.9 Gastro-esophageal reflux disease without esophagitis; F17.200 Nicotine dependence, unspecified, uncomplicated; Z79.84 Long term (current) use of oral hypoglycemic drugs; Z79.899 Other long term (current) drug therapy
CPT/HCPCS: 51702

== ENCOUNTER 2017-08-03 10:00 | Emergency (ER) | payer MEDICARE, MEDICAID ==
[~2017-08-03] VITALS: Ht 147.3 cm; Wt 40.0 kg
[2017-08-03 10:18] VITALS: BP 131/83; PULSE 107; RESP 18; TEMP 98.7; O2SAT 96
== END 2017-08-03 13:11 | disposition left against medical advice (07) ==
LOC: NED 10:00
DX: R68.89 Other general symptoms and signs (principal)
CPT/HCPCS: 99281

== ENCOUNTER 2017-08-03 12:39 | Emergency (ER) | payer MEDICARE, MEDICAID ==
[~2017-08-03] VITALS: Ht 147.3 cm; Wt 36.0 kg
[2017-08-03 12:55] VITALS: BP 161/93; PULSE 109; RESP 18; TEMP 98.4; O2SAT 96
--- NOTE | 2017-08-03 14:05 | PD ---
HPI . Constipation Chief Complaint: GI Complaint Time Seen by Provider: 13:17 Travel History International Travel<30 days: No Contact w/Intl Traveler<30days: No Traveled to known affect area: No History of Present Illness HPI Patient presents with a chief complaint of constipation. Onset was 18 days ago. She states that the severity is 10/10. There have been no modifying factors. She states that she has tried to do enemas at home and that she is only passing liquid. She feels that she needs to be disimpacted. PFSH Past Medical History Hx Anticoagulant Therapy: No Arthritis: Yes (neck, back) Autoimmune Disease: No Bipolar Disorder: Yes Anxiety: Yes Depression: Yes Cancer: No Cardiovascular Problems: Yes (htn on meds) High Cholesterol: Yes Chemotherapy: No COPD: Yes Diabetes: Yes Patient Takes Glucophage: Yes Diminished Hearing: No Endocrine: Yes Gastrointestinal Disorders: Yes GERD: Yes Genitourinary: No Headaches: No Heparin Induced Thrombocytopen: No Hypertension: Yes Immune Disorder: No Implanted Vascular Access Dvce: No Musculoskeletal: Yes Neurologic: No Psychiatric: Yes Reproductive: No Respiratory: Yes (COPD) Immunizations Current: Yes Radiation Therapy: No Seizures: No Sickle Cell Disease: No Thyroid Disease: No Tetanus Vaccination: < 5 Years Influenza Vaccination: Yes ?: Not Past Surgical History Arteriovenous Shunt: No Body Medical Devices: RODRIGUEZ CATH Section: Yes Gynecologic Surgery: Yes (two cesareans) Insulin Pump: No Joint Replacement: No Other Surgery: Yes (two cesareans) Social History Alcohol Use: No Tobacco Use: Yes (1 PPD) Substance Use: No Allergies-Medications (Allergen,Severity, Reaction): Coded Allergies: penicillin G (Verified Allergy, Unknown, 08/03/17) trifluoperazine (Verified Adverse Reaction, Unknown, 08/03/17) Reported Meds & Prescriptions Reported Meds & Active Scripts Active Pravastatin 20 Mg Tab 20 Mg PO DAILY Reported Amlodipine (Amlodipine Besylate) 10 Mg Tab 20 Mg PO DAILY Losartan (Losartan Potassium) 100 Mg Tab 100 Mg PO DAILY Metformin (Metformin HCl) 500 Mg Tab 500 Mg PO DAILY With a meal Review of Systems Except as stated in HPI: all other systems reviewed are Neg Physical Exam Narrative GENERAL: Awake and alert and in no acute distress. She is wearing sunglasses. SKIN: Warm and dry. Normal color and turgor. HEAD: Normocephalic/atraumatic. EYES: Pupils are equal. Extraocular movements are intact. NECK: Normal range of motion. Supple. CARDIOVASCULAR: Regular rate and rhythm. RESPIRATORY: Nonlabored respirations. Normal sats. ABDOMEN: Soft. RECTAL: Large mass of hard stool in the rectal vault. MUSCULOSKELETAL: Atraumatic. Normal muscle tone. NEUROLOGICAL: A and O 3. Nonfocal. PSYCHIATRIC: Appropriate mood and affect. Data Data Last Documented VS Vital Signs Date Time Temp Pulse Resp B/P (MAP) Pulse Ox O2 Delivery O2 Flow Rate FiO2 08/03/17 12:55 98.4 109 18 161/93 (115) 96 Orders Orders Bucket, Enema Cleansing Ea (08/03/17 13:29) MDM Medical Decision Making Medical Screen Exam Complete: Yes Emergency Medical Condition: Yes Differential Diagnosis Differential diagnosis of constipation includes medication effect, irritable bowel syndrome, inadequate fiber, bowel obstruction Narrative Course This patient presents complaining of constipation. She is requesting disimpaction followed by an enema. Her rectal exam shows a large mass of hard stool in the rectal vault. She has been manually disimpacted by me. She will now be treated with a soapsuds enema. The patient has had excellent results with her enema. Diagnosis Primary Impression: Constipation Qualified Codes: K59.00 - Constipation, unspecified Patient Instructions: Constipation (DC), General Instructions Disposition: 01 DISCHARGE HOME Condition: Stable Ruma Herbert MD Aug 03, 2017 14:05
== END 2017-08-03 14:50 | disposition home or self-care (01) ==
LOC: PHED 12:39
DX: K59.00 Constipation, unspecified (principal); F17.200 Nicotine dependence, unspecified, uncomplicated; E11.9 Type 2 diabetes mellitus without complications; E78.00 Pure hypercholesterolemia, unspecified; I10 Essential (primary) hypertension; Z79.84 Long term (current) use of oral hypoglycemic drugs
CPT/HCPCS: 99282

== ENCOUNTER 2017-09-23 08:21 | Observation (INO) ==
[2017-09-23 08:26] VITALS: O2SAT 96
[2017-09-23] MEDS ORDERED: Aspirin 325 MG Tablet PO ONE (08:37)
--- NOTE | 2017-09-23 08:40 | ED ---
HPI General Chief complaint: Chest Pain Stated complaint: Chest Pain since last night/Not draining urine Source: patient Mode of arrival: ambulatory Limitations: no limitations History of Present Illness HPI narrative: 67yo F with PMH of bipolar disorder, HTN, DM presents to the ED with c/o chest pain since last night. Said it was severe, midsternal and nonradiating. Pain is pressure like. +Diaphoresis and nausea. No alleviating or exacerbating factor. Denies any fever, vomiting, abdominal pain, sob, focal weakness or numbness. Denies any previous stress test or similar chest pain. + Cig smoker. 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 Related Data Home Medications Medication Instructions Recorded Confirmed amlodipine [Norvasc] 2.5 mg PO DAILY 08/27/17 09/23/17 ciprofloxacin HCl [Cipro] 500 mg PO BID 08/27/17 09/23/17 clonazepam [Klonopin] 0.5 mg PO BID 08/27/17 09/23/17 losartan 25 mg PO DAILY 08/27/17 09/23/17 metformin 1,000 mg PO BID 08/27/17 09/23/17 pravastatin 20 mg PO DAILY 08/27/17 09/23/17 Previous Rx's Medication Instructions Recorded tamsulosin [Flomax] 0.4 mg PO DAILY #20 cap 09/04/17 ciprofloxacin HCl 500 mg PO BID #13 tab 09/07/17 magnesium citrate 150 ml PO DAILY #296 ml 09/20/17 psyllium husk (with sugar) 1 tbsp PO BID #538 g 09/20/17 [Metamucil (with sugar)] sodium phosphates [Fleet Enema] 118 ml RECTAL DAILY #236 ml 09/20/17 Allergies Allergy/AdvReac Type Severity Reaction Status Date / Time penicillin G Allergy Severe Hives Verified 09/23/17 08:23 trifluoperazine Allergy Intermediate Hives Verified 09/23/17 08:23 Review of Systems ROS: all other systems reviewed are negative [facility] Medical History Medical History Bipolar disorder (Acute) Anxiety (Acute) Diabetes (Acute) Hypertension (Acute) High cholesterol (Acute) Surgical History Surgical History History of section (Acute) History of tonsillectomy (Acute) Family History Family History Father History of myocardial infarction Mother History of uterine cancer History of colon cancer Mother No problems noted. Social History Social History Substance History: No History of Abuse Second Hand Smoke Exposure: No Smoking Status: Current every day smoker Tobacco Type: Cigarettes How Often Do You Have a Drink Containing Alcohol: Never Recent Travel in [facility] within the Last 8 Weeks: No Recent Out of Country Travel within the Last 8 Weeks: No Immunization History Tetanus Immunization: <5 Years Hx Influenza Vaccine This Season: Yes Exam Narrative Exam Narrative: GENERAL: [-] SKIN: Focused skin assessment warm/dry. HEAD: Atraumatic. Normocephalic. EYES: Pupils equal and round. No scleral icterus. No injection or drainage. ENT: No nasal bleeding or discharge. Mucous membranes pink and moist. NECK: Trachea midline. No JVD. CARDIOVASCULAR: Regular rate and rhythm. No murmur appreciated. RESPIRATORY: No accessory muscle use. Clear to auscultation. Breath sounds equal bilaterally. GASTROINTESTINAL: Abdomen soft, non-tender, nondistended. MUSCULOSKELETAL: No obvious deformities. No clubbing. No cyanosis. No edema. NEUROLOGICAL: Awake and alert. No obvious cranial nerve deficits. Motor grossly within normal limits. Normal speech. Course Initial Documented Vital Signs Temperature 97.6 F 09/23/17 08:23 Pulse Rate 86 09/23/17 08:23 Respiratory Rate 18 09/23/17 08:23 Blood Pressure 174/79 H 09/23/17 08:23 Pulse Oximetry 96 09/23/17 08:23 Last Documented Vital Signs Temperature 97.6 F 09/23/17 08:23 Pulse Rate 78 09/23/17 10:06 Respiratory Rate 16 09/23/17 10:06 Blood Pressure 120/63 09/23/17 10:06 Pulse Oximetry 96 09/23/17 10:06 Medical Decision Making [facility] Narrative Medical decision making narrative: 67yo F who is usually here for complaints about her carver catheter presents with chest pain today. Pt is well known to the Emergency Department for multiple visits regarding inability to urinate and then problems with her carver catheter. However, she does not usually come for chest pain and does have some ST depression on EKG. It appears she did have previous EKG completed but I was unable to visualize it in our current EMR. Pt does have cardiac risk factors including HTN, DM, cig smoking. Pt given aspirin. Labs reviewed, no leukocytosis. H/H elevated at 16.1/48.3. Troponin negative. BMP unremarkable. CXR showed small bilateral effusions. Small focus of linear parenchymal opacity at the lateral left lung base which may be mild scarring or atelectasis. Medical Screen Exam Complete: Yes Emergency Medical Condition: Yes Lab Data Result diagrams: 09/23/17 08:52 18 08:52 Lab Results 09/23/17 09/23/1718 Range/Units 08:52 08:52 08:52 CBC w Diff Auto diff final WBC 7.7 (4.0-11.0) th/mm3 RBC 5.10 (4.00-5.30) mil/mm3 Hgb 16.1 H (11.6-15.3) gm/dL Hct 48.3 H (35.0-46.0) % MCV 94.9 (80.0-100.0) fL MCH 31.6 (27.0-34.0) pg MCHC 33.3 (32.0-36.0) % RDW 12.8 (11.6-17.2) % Plt Count 335 (150-450) th/mm3 MPV 6.9 L (7.0-11.0) fL Neut % (Auto) 56.4 (16.0-70.0) % Lymph % (Auto) 36.5 (9.0-44.0) % [place] % (Auto) 5.0 (0.0-8.0) % Eos % (Auto) 1.1 (0.0-4.0) % Baso % (Auto) 1.0 (0.0-2.0) % Neut # (Auto) 4.3 (1.8-7.7) th/mm3 Lymph # (Auto) 2.8 (1.0-4.8) th/mm3 [place] # (Auto) 0.4 (0.0-0.9) th/mm3 Eos # (Auto) 0.1 (0.0-0.4) th/mm3 Baso # (Auto) 0.1 (0.0-0.2) th/mm3 WBC Differential . Differential Comment . PT 10.7 (9.8-11.6) sec INR 1.1 Ratio APTT 26.1 (24.3-30.1) sec Sodium 139 (136-145) meq/L Potassium 3.6 (3.5-5.1) meq/L Chloride 102 (98-107) meq/L Carbon Dioxide 30.6 (21.0-32.0) meq/L Anion Gap 6 (5-15) meq/L BUN 18 (7-18) mg/dL Creatinine 0.82 (0.50-1.00) mg/dL Estimated GFR 70 L (>89) mL/min Random Glucose 113 H (74-106) mg/dL Calcium 9.4 (8.5-10.1) mg/dL Troponin I Less than 0.02 L (0.02-0.05) ng/mL Imaging Data Radiologist's impression: Chest X-Ray 09/23/17 08:37 CONCLUSION: Small bilateral effusions. Small focus of linear parenchymal opacity at the lateral left lung base. ECG Data EKG Prior to Arrival: No Attestation: I personally reviewed and interpreted this ECG as follows: Interpretation: NSR 82bpm. Normal axis. [place] interval 120ms. ST depression II, III, aVF, V3-V6. Unable to visualize previous EKG. Discharge Plan Discharge Disposition Patient Disposition: 30 Still Patient Discharge Details Diagnosis: Chest pain Physicians Team ED Provider: Michelle Harris Primary Care Provider: Carlos De La Cruz Attending Provider: Matisa Leigh Status ED Status: Left Department Discharge Information Discharge Date/Time: 09/23/17 11:01
--- NOTE | 2017-09-23 09:00 | XR ---
EXAM DATE: 09/23/2017 8:54 AM EDT AGE/SEX: 67 years / Female INDICATIONS: Chest pain. CLINICAL DATA: This is the patient's initial encounter. Patient reports that signs and symptoms have been present for 1 day and indicates a pain score of 6/10. MEDICAL/SURGICAL HISTORY: Hypercholesterolemia. Diabetes. Hypertension. Smoker. se ction. COMPARISON: [facility], RIBS RIGHT(W PA CXR MIN 3VWS), 02/24/2017. . FINDINGS: There is a small area of linear parenchymal opacity in the lateral left lung base which may be mild s carring or atelectasis however not present previously. There are small bilateral effusions. There is slight streaky perihilar parenchymal opacity in the upper lung zones which was present to some degree previously. Cardiac contours are grossly stable. CONCLUSION: Small bilateral effusions. Small focus of linear parenchymal opacity at the lateral left lung base. Electronically signed by: Helio Horan MD 09/23/2017 8:58 AM EDT
[2017-09-23 09:02] LABS: Baso # (Auto) 0.1 th/mm3 (0.0-0.2); Eos # (Auto) 0.1 th/mm3 (0.0-0.4); Eos % (Auto) 1.1 % (0.0-4.0); Hematocrit 48.3 % (35.0-46.0); Hemoglobin 16.1 gm/dL (11.6-15.3); Lymph # (Auto) 2.8 th/mm3 (1.0-4.8); Lymph % (Auto) 36.5 % (9.0-44.0); Mean Corpuscular HGB Conc 33.3 % (32.0-36.0); Mean Corpuscular Hemoglobin 31.6 pg (27.0-34.0); Mean Corpuscular Volume 94.9 fL (80.0-100.0); Mean Platelet Volume 6.9 fL (7.0-11.0); Mono # (Auto) 0.4 th/mm3 (0.0-0.9); Neut # (Auto) 4.3 th/mm3 (1.8-7.7); Neut % (Auto) 56.4 % (16.0-70.0); Platelet Count 335 th/mm3 (150-450); Red Cell Distribution Width 12.8 % (11.6-17.2); White Blood Count 7.7 th/mm3 (4.0-11.0)
[2017-09-23 09:06] LABS: Chloride 102 meq/L (98-107); Potassium 3.6 meq/L (3.5-5.1); Sodium 139 meq/L (136-145)
[2017-09-23 09:08] LABS: Calcium 9.4 mg/dL (8.5-10.1)
[2017-09-23 09:09] LABS: Anion Gap 6 meq/L (5-15); Blood Urea Nitrogen 18 mg/dL (7-18); Carbon Dioxide 30.6 meq/L (21.0-32.0); Glucose,Random 113 mg/dL (74-106)
[2017-09-23 09:12] LABS: Glomerular Filtration Rate 70 mL/min (>89)
[2017-09-23 09:15] LABS: Activated Partial Thrombo Time 26.1 sec (24.3-30.1); INR 1.1 Ratio; Prothrombin Time 10.7 sec (9.8-11.6)
--- NOTE | 2017-09-23 11:43 | P.HP ---
History of Present Illness Primary Care Physician: Carlos De La Cruz Chief Complaint: Chest pain History of Present Illness: 67-year-old female with known history of hypertension, hyperlipidemia , diabetes, tobacco abuse, family history of heart disease who presented to the hospital because of chest discomfort. Patient states that approximately 10 PM last night she had sudden onset of chest discomfort in the left anterior part of her chest that radiated into her left arm. Patient indicates that the pain is 10/10 on a pain scale and has remained persistent since 10 PM last night and currently is experiencing the discomfort. She states that she had some nausea, some increased sweating. Denied any shortness of breath, dyspnea, lightheadedness, dizziness. She denied any pain on deep inspiration and/or movement. Because the patient's increased risk factors is recommended by the ER physician the patient be observed in the hospital for further evaluation and management. Patient has been undergoing outpatient management of difficulty in urinating. She does have a indwelling Mccurdy in at this time. She states it all started from a previous urinary tract infection. She has been followed by urologist who she is supposed to see again next week. She denies any urinary symptoms at this time. - Diagnosis (1) Chest pain Review of Systems All other systems reviewed negative except as stated in HPI Cardiovascular: Reports chest pain Gastrointestinal: Reports nausea PMFSH - History History Provided By: Patient - Medical History Medical History: Medical History (Last Reviewed 09/23/17 @ 11:36 by SHERLYN Cruz) Bipolar disorder (Acute) Anxiety (Acute) Diabetes (Acute) Hypertension (Acute) High cholesterol (Acute) - Surgical History Surgical History: Surgical History (Last Reviewed 09/23/17 @ 11:36 by SHERLYN Cruz) History of section (Acute) History of tonsillectomy - Family History Family History: Family History (Last Reviewed 09/23/17 @ 11:36 by SHERLYN Cruz) Father History of myocardial infarction Mother History of uterine cancer History of colon cancer Mother No problems noted. - Tobacco History Second Hand Smoke Exposure: No Tobacco Use In Past 30 Days: Yes Smoking Status: Current every day smoker Tobacco Type: Cigarettes Packs Per Day: 1 Years Smoked: 46 - Alcohol History How Often Do You Have a Drink Containing Alcohol: Never - Substance Use History Substance History: No History of Abuse - Travel History Recent Travel in the [facility] Within the Last 8 Weeks: No Recent Travel Out of the Country Within the Last 8 Weeks: No - Immunization History Tetanus Immunization: <5 Years Hx Influenza Vaccine This Season: Yes Medications and Allergies Active Medications: Active Medications Sodium Chloride (Ns Flush) 2 ml IV.FLUSH UNSCH PRN PRN Reason: FLUSH AFTER USING IV ACCESS Allergies Allergy/AdvReac Type Severity Reaction Status Date / Time penicillin G Allergy Severe Hives Verified 09/23/17 08:23 trifluoperazine Allergy Intermediate Hives Verified 09/23/17 08:23 Home Medications Medication Instructions Recorded Confirmed Type amlodipine [Norvasc] 2.5 mg PO DAILY 08/27/17 09/23/17 History ciprofloxacin HCl [Cipro] 500 mg PO BID 08/27/17 09/23/17 History clonazepam [Klonopin] 0.5 mg PO BID 08/27/17 09/23/17 History losartan 25 mg PO DAILY 08/27/17 09/23/17 History metformin 1,000 mg PO BID 08/27/17 09/23/17 History pravastatin 20 mg PO DAILY 08/27/17 09/23/17 History Exam Vital signs: Vital Signs 09/23/17 08:23 09/23/17 08:37 09/23/17 10:06 Temperature 97.6 F Pulse Rate 86 78 Respiratory Rate 18 16 Blood Pressure 174/79 H 120/63 Pulse Oximetry 96 96 96 Intake & Output 09/22/17 09/23/17 09/23/17 18:59 06:59 18:59 Weight 35 kg Narrative: GENERAL: Well-developed, well-nourished, in no acute distress. alert and orientated HEENT: Head is normocephalic without any lesions or masses noted. Facial features are symmetric. Eyes: Pupils equal round reactive to light. Extraocular muscles are intact. Conjunctivae were clear. Oropharyngeal: Pharynx without any erythema edema. Tongue is midline without deviation. Buccal mucosa is moist without any masses or lesions NECK: Supple without any masses. Trachea midline no deviation. No JVD, no bruits are appreciated CARDIAC: Regular rhythm, regular rate. S1/S2 are heard. No murmurs gallops or rubs. Reproducible palpable tenderness noted over the left sternal border. Patient indicates that that is the pain that staged been experiencing. LUNGS: Clear to auscultation bilaterally. No wheeze, rhonchi or rales. No use of accessory muscles on inspiration or expiration. ABDOMEN: Soft, nontender. Nondistended. Bowel sounds heard in all 4 quadrants. No organomegaly or masses. Negative rebound, negative guarding EXTREMITIES: No edema, pulses are equal bilaterally. No cyanosis or clubbing NEUROLOGY: Mood and affect appear appropriate. Cranial nerves II through XII grossly intact. Muscle strength 5/5 in upper and lower extremities bilaterally. Deep tendon reflexes are 2+ in upper and lower extremities bilaterally. Results - Labs CBC & Chem 7: 09/23/17 08:52 09/23/17 08:52 Labs: Laboratory Results - last 24 hr 09/23/17 09/23/17 09/23/17 08:52 08:52 08:52 CBC w Diff Auto diff final WBC 7.7 RBC 5.10 Hgb 16.1 H Hct 48.3 H MCV 94.9 MCH 31.6 MCHC 33.3 RDW 12.8 Plt Count 335 MPV 6.9 L Neut % (Auto) 56.4 Lymph % (Auto) 36.5 [place] % (Auto) 5.0 Eos % (Auto) 1.1 Baso % (Auto) 1.0 Neut # (Auto) 4.3 Lymph # (Auto) 2.8 [place] # (Auto) 0.4 Eos # (Auto) 0.1 Baso # (Auto) 0.1 WBC Differential . Differential Comment . PT 10.7 INR 1.1 APTT 26.1 Sodium 139 Potassium 3.6 Chloride 102 Carbon Dioxide 30.6 Anion Gap 6 BUN 18 Creatinine 0.82 Estimated GFR 70 L Random Glucose 113 H Calcium 9.4 Troponin I Less than 0.02 L - Imaging Impressions Chest X-Ray 09/23/17 08:37 CONCLUSION: Small bilateral effusions. Small focus of linear parenchymal opacity at the lateral left lung base. Caprini VTE Risk Assessment Caprini VTE Risk Assessment: No/Low Risk (score <= 1) Caprini Risk Assessment Model: Point Value = 1 Point Value = 2 Point Value = 3 Point Value = 5 Age 41-60 Minor surgery BMI > 25 kg/m2 Swollen legs Varicose veins or History of unexplained or recurrent spontaneous Oral contraceptives or hormone replacement Sepsis (< 1 month) Serious lung disease, including pneumonia (< 1 month) Abnormal pulmonary function Acute myocardial infarction Congestive heart failure (< 1 month) History of inflammatory bowel disease Medical patient at bed rest Age 61-74 Arthroscopic surgery Major open surgery (> 45 min) Laparoscopic surgery (> 45 min) Malignancy Confined to bed (> 72 hours) Immobilizing plaster cast Central venous access Age >= 75 History of VTE Family history of VTE Factor V Leiden Prothrombin [id number] Lupus anticoagulant Anticardiolipin antibodies Elevated serum homocysteine Heparin-induced thrombocytopenia Other congenital or acquired thrombophilia Stroke (< 1 month) Elective arthroplasty Hip, pelvis, or leg fracture Acute spinal cord injury (< 1 month) Prophylaxis Regimen: Total Risk Factor Score Risk Level Prophylaxis Regimen 0-1 Low Early ambulation 2 Moderate Order ONE of the following: *Sequential Compression Device (SCD) *Heparin 5000 units SQ BID 3-4 Higher Order ONE of the following medications: *Heparin 5000 units SQ TID *Enoxaparin/Lovenox 40 mg SQ daily (WT < 150 kg, CrCl > 30 mL/min) *Enoxaparin/Lovenox 30 mg SQ daily (WT < 150 kg, CrCl > 10-29 mL/min) *Enoxaparin/Lovenox 30 mg SQ BID (WT < 150 kg, CrCl > 30 mL/min) AND/OR *Sequential Compression Device (SCD) 5 or more Highest Order ONE of the following medications: *Heparin 5000 units SQ TID (Preferred with Epidurals) *Enoxaparin/Lovenox 40 mg SQ daily (WT < 150 kg, CrCl > 30 mL/min) *Enoxaparin/Lovenox 30 mg SQ daily (WT < 150 kg, CrCl > 10-29 mL/min) *Enoxaparin/Lovenox 30 mg SQ BID (WT < 150 kg, CrCl > 30 mL/min) AND *Sequential Compression Device (SCD) Assessment and Plan - Assessment (1) Chest pain Code(s): R07.9 - Chest pain, unspecified Status: Acute - Plan Chest pain, atypical -Patient does have increased risk factors include age, hypertension, hyperlipidemia, diabetes, family history of heart disease, chronic tobacco use -Given the patient had the pain for over 14 hours and it is reproducible on palpation, it would appear to be musculoskeletal in nature. However need to rule out underlying cardiac disease given the patient's increased risk factors -Thus far patient has had negative cardiac enzymes, EKG does not indicate any acute abnormality -Myocardial perfusion study was performed and indicated no ischemia, low risk -Continue aspirin, nitroglycerin, -Continue monitor telemetry Hypertension, hyper lipidemia -Continue home medication Diabetes -Accu-Cheks with sliding scale insulin DVT prevention -Sequential compression devices Discharge Planning: Discharge home in stable condition Activity: Ad sintia. Diet: Healthy heart diet Medication per medication reconciliation Follow-up with primary medical doctor in 1 week (1) Chest pain Qualifiers: Chest pain type: unspecified Qualified Code(s): R07.9 - Chest pain, unspecified
[2017-09-23] MEDS ORDERED: Acetaminophen 500 MG Tablet PO PRN (11:45)
[2017-09-23] MEDS ORDERED: Dextrose 50% in Water 50 ML Vial IV.PUSH PRN (11:48)
[2017-09-23] MEDS ORDERED: clonazePAM 0.5 MG Tablet PO SCH (12:00)
[2017-09-23] MEDS ORDERED: Insulin NovoLOG Aspart Correctional Sugar Inj SQ SCH (12:00)
[2017-09-23] MEDS ORDERED: amLODIPine 5 MG Tablet PO SCH (12:15)
[2017-09-23 12:51] LABS: Creatine Kinase 49 U/L (26-192)
--- NOTE | 2017-09-23 13:22 | ECG ---
Date Performed: 09/23/2017 Time Performed: 08:32:57 PTAGE: 67 years EKG: Sinus rhythm POSSIBLE LEFT ATRIAL ENLARGEMENT MODERATE ST DEPRESSION ABNORMAL ECG PREVIOUS TRACING : 05/04/2017 15.53 Since the previous tracing, no significant change noted DOCTOR: Homero Henderson Interpretating Date/Time 09/23/2017 13:22:13
[2017-09-23 14:10] VITALS: BP 167/77; PULSE 72; RESP 20; TEMP 98.8
[2017-09-23] MEDS ORDERED: Regadenoson Inj 0.4 MG/5 ML Syringe IV.PUSH ONE (14:29)
--- NOTE | 2017-09-23 15:51 | NM ---
EXAM DATE: 09/23/2017 3:31 PM EDT AGE/SEX: 67 years / Female INDICATIONS:Angina. . Left sided chest pain. CLINICAL DATA: This is the patient's initial encounter. Patient reports that signs and symptoms have been present for 1 day and indicates a pain score of 10/10. MEDICAL/SURGICAL HISTORY: Hypertension. Diabetes mellitus type II. section. COMPARISON: No prior exams available for comparison. DOSE: 8.1 mCi Tc 99m Myoview at rest 25.6 mCi [id number] at stress 0.4 mg Lexiscan STRESS SYMPTOMS: Short of breath. EJECTION FRACTION: >70 % TECHNIQUE: The patient underwent pharmacologic stress with infusion of prescribed dose. Continuous ECG tracing was monitored during stress. Gated SPECT imaging was performed after stress and conventi onal SPECT imaging was performed at rest. The examination was performed on a SPECT/CT scanner, both attenuation and non-corrected datasets were reviewed. FINDINGS: Distribution: The maximum perfused segment at stress is in the inferior wall. Perfusion Study: The pattern of perfusion at stress is within normal limits. No fixed or reversib le perfusion defect is identified. Gated Study: There are intact wall motion and wall thickening without hypokinetic or dyskinetic segm ents. The ejection fraction is calculated at >70%. RISK CATEGORY: Low (<1% Annual Motality Rate) CONCLUSION: 1. Normal left ventricle perfusion without fixed or reversible perfusion defect. 2. Normal left ventricle wall motion and ejection fraction. Electronically signed by: Helio Gli MD 09/23/2017 3:50 PM EDT
[2017-09-24] MEDS ORDERED: Aspirin 325 MG Tablet PO SCH (09:00)
--- NOTE | 2017-09-24 11:10 | ECG ---
Date Performed: 09/23/2017 Time Performed: 12:15:17 PTAGE: 67 years EKG: Sinus rhythm NORMAL ECG PREVIOUS TRACING : 09/23/2017 08.32 Since the previous tracing, no significant change noted DOCTOR: Malcolm Francisco Interpretating Date/Time 09/24/2017 11:08:09
--- NOTE | 2017-09-24 11:17 | TR ---
Date Performed: 09/23/2017 Time Performed: 14:44:14 DOCTOR: Greg Kat DRUG LIST: CLINICAL HISTORY: REASON FOR TEST: REASON FOR ENDING: OBSERVATION: CONCLUSION: Lexiscan stress test was performed under standard four minute protocol. Radionuclide was injected one minute prior to ending the test. No electrocardiographic abormalities were present to suggest ischemia. Nuclear imaging and interpretation are pending. COMMENTS:
== END 2017-09-23 17:17 | disposition home or self-care (01) ==
LOC: PHED 08:21 → PHEDA 08:21 → PH3 08:21
PROVIDERS: ADMIT Family Medicine; ATTEND Family Medicine